=== PATIENT | male | born 1950 | race Caucasian/White ===

== ENCOUNTER → 2016-08-05 | Outpatient (CLI) | payer BC ==
[~2016-08-05] MED LIST: ASP81TEC PO
--- NOTE | 2016-08-05 21:29 | ECHOCARDIOGRAPHY REPORT ---
DATE OF SERVICE: 08/05/2016 PROCEDURE: 2D Echocardiogram REFERRING PHYSICIAN: Mark Baldwin MD. MEASUREMENTS: LVID end diastolic 4.4. IVS thickness 1.0. LVPW thickness 1.0. Left atrial diameter 2.0. Ejection fraction 60%. FINDINGS: 1. Technical quality is good. 2. The left ventricle is normal in size with normal contractility, systolic function appeared to be normal, estimated ejection fraction 60%. 3. The left atrium is normal in size. No clot or thrombus were seen within the left atrium. 4. The right atrium and right ventricle are normal in size. No clot or thrombus were seen within the right side. 5. Mitral valve is normal in morphology with mild mitral regurgitation noted by color Doppler flow. No mitral valve prolapse. No mitral valve stenosis. 6. Aortic valve is trileaflet with normal opening and closing pattern. No significant aortic stenosis or regurgitation was seen. 7. Tricuspid valve is normal in morphology with mild tricuspid regurgitation noted by color Doppler flow. Doppler echo of the tricuspid valve estimated pulmonary artery pressure of 7 plus right atrial pressure. 8. Pulmonic valve is functioning normally. 9. No pericardial effusion. CONCLUSION: 1. Normal left ventricular size and systolic function. Estimated ejection fraction 60%. 2. Mild mitral and tricuspid regurgitation. 3. Estimated pulmonary artery pressure of 15 mmHg. Job ID: [id number] DocumentID: [id number] Dictated Date: 08/05/2016 17:29:17 Credit Risk Management Director Date: 08/05/2016 17:47:56 Dictated By: SANDRA CLAIRE MD
== END ==
LOC: CARD 11:45
PROVIDERS: ATTEND Physician Assistant
DX: I65.23 Occlusion and stenosis of bilateral carotid arteries (principal); E78.2 Mixed hyperlipidemia; R00.2 Palpitations; Z82.49 Family history of ischemic heart disease and other diseases of the circulatory system
CPT/HCPCS: 93306

== ENCOUNTER → 2016-08-12 | Outpatient (CLI) | payer BC ==
[~2016-08-12] VITALS: Ht 180.3 cm; Wt 82.6 kg
[~2016-08-12] MED LIST changes: +CATHETER FLUSH 10 ML SYR IV PRN
[2016-08-12 09:43] VITALS: BP 121/72
[2016-08-12 09:46] VITALS: BP 138/70
[2016-08-12 09:54] VITALS: BP 140/72
[2016-08-12 09:56] VITALS: BP 137/64
[2016-08-12 09:58] VITALS: BP 132/61
--- NOTE | 2016-08-12 12:17 | STRESS TEST ---
DATE OF SERVICE: 08/12/2016 EXERCISE MYOVIEW STRESS TEST REFERRING PHYSICIAN: Dr. Mark Baldwin. DATE OF PROCEDURE: 08/12/2016 Baseline heart rate is 71. Baseline blood pressure 115/62. Baseline EKG sinus rhythm with no ischemic changes. In summary, the patient was injected with 10.92 mCi of technetium-99 Myoview and the resting images were obtained. Then, the patient started exercising with a baseline heart rate, blood pressure and EKG mentioned above. At minute 7 and 30 seconds, the patient was injected with 32.3 mCi of technetium 99 Myoview, patient was able to exercise for a total of 8 minutes 30 seconds on standard Ted protocol, achieving maximum heart rate of 138, which is 89% of maximum expected heart rate. With peak exercise level, EKG was showing minimal undiagnostic changes. Blood pressure was 138/70. During recovery, heart rate and blood pressure returned to baseline. EKG returned to baseline. The resting and stress images were reviewed and compared in the short axis, horizontal long axis, and vertical long axis views. Review of the images showed diaphragmatic attenuation with typical male pattern. There is no significant ischemia or infarction on SPECT images. SSS is 4. SDS zero. TID value 0.96. On the gated images, the left ventricle appeared to be normal size with normal contractility. Calculated ejection fraction 65%. CONCLUSION: 1. Good exercise tolerance, a total of 8 minutes 30 seconds on standard Ted protocol, total of 10.1 mets achieving 89% of maximum expected heart rate. 2. Appropriate heart rate and blood pressure response to exercise, returned to baseline during recovery. 3. Minimal and diagnostic EKG changes with exercise returned to baseline during recovery. 4. No ischemia or infarction on SPECT images. 5. Normal left ventricular size with normal contractility. Calculated ejection fraction 65%. Job ID: [id number] DocumentID: [id number] Dictated Date: 08/12/2016 11:08:13 Chlorination Operator Date: 08/12/2016 12:00:45 Dictated By: SANDRA CLAIRE MD
== END ==
LOC: CARD 08:20
PROVIDERS: ATTEND Physician Assistant
DX: I65.23 Occlusion and stenosis of bilateral carotid arteries (principal); E78.2 Mixed hyperlipidemia; R00.2 Palpitations; Z82.49 Family history of ischemic heart disease and other diseases of the circulatory system
CPT/HCPCS: 78452; 93017

== ENCOUNTER → 2018-01-28 | Outpatient (CLI) | payer BC ==
[2018-01-28 09:21] VITALS: BP 113/74
--- NOTE | 2018-01-28 14:13 | STRESS TEST ---
DATE OF SERVICE: 01/28/2018 EXERCISE MYOVIEW STRESS TEST REPORT REFERRING PHYSICIAN: Dr. Chamberlain. Baseline heart rate is 67. Baseline blood pressure is 113/74. Baseline EKG is sinus rhythm with no ischemic changes. In summary, the patient was injected with 10.5 mCi of technetium-99 Myoview and the resting images were obtained. Then, the patient started exercising with a baseline heart rate, blood pressure and EKG mentioned above. The patient was able to exercise for a total of 9 minutes on standard Ted protocol. At peak stress level, the patient was given 31.3 mCi of technetium-99 Myoview. Peak blood pressure reported was 191/78. During recovery, heart rate and blood pressure returned to baseline. EKG returned to baseline. The resting and stress images were reviewed and compared in the short axis, horizontal long axis and vertical long axis views. Review of the images showed diaphragmatic attenuation affecting the quality of the images. There is a fixed defect involving the mid to apical inferior wall and inferolateral wall. SSS is 8. SDS is 0. Using the attenuation correction protocol, showed improvement overall in the uptake with mild apical thinning with no significant ischemia. On the gated images, the left ventricle appeared to be in normal size with normal contractility, inferior wall is ashanti normally. Calculated ejection fraction is 60% . CONCLUSION: 1. Good exercise tolerance, a total of 9 minutes on standard Ted protocol, total of 10.5 METS achieving 88% of maximum expected heart rate. 2. Appropriate heart rate and blood pressure response to exercise, returned to baseline during recovery. 3. Nondiagnostic EKG changes with exercise, returned to baseline during recovery. 4. Diaphragmatic attenuation with typical male pattern affecting the quality of the images. Overall, there is no significant ischemia or infarction on SPECT images. 5. Normal left ventricular size with normal contractility. Calculated ejection fraction is 60% . Job ID: [id number] DocumentID: [id number] Dictated Date: 01/28/2018 13:54:05 Non Profit Director Date: 01/28/2018 14:13:38 Dictated By: SANDRA CLAIRE MD
== END ==
LOC: CARD 08:11
PROVIDERS: ATTEND Internal Medicine Cardiovascular Disease
DX: R07.89 Other chest pain (principal); E78.5 Hyperlipidemia, unspecified; R00.2 Palpitations; Z82.49 Family history of ischemic heart disease and other diseases of the circulatory system
CPT/HCPCS: 78452; 93017

== ENCOUNTER 2018-03-10 11:08 | Outpatient (CLI) | payer BC ==
[~2018-03-10] VITALS: Ht 180.3 cm; Wt 83.1 kg
[~2018-03-10 11:08] MED LIST changes: -CATHETER FLUSH 10 ML SYR IV PRN
[2018-03-10] MEDS ORDERED: ASPI-999 PO (11:27)
[2018-03-10 11:31] VITALS: BP 130/83
[2018-03-10 12:01] LABS: BASOPHILS % (AUTO) 0 % (0-10); EOSINOPHILS # (AUTO) 0.1 10^3/uL (0.0-0.3); EOSINOPHILS % (AUTO) 2 % (0-10); HEMATOCRIT 42 % (40-54); HEMOGLOBIN 14.3 G/DL (13.3-17.7); LYMPHOCYTES # (AUTO) 1.2 X 10^3 (1.0-4.0); LYMPHOCYTES % (AUTO) 19 % (12-44); MEAN CORPUSCULAR HEMOGLOBIN 30 PG (25-34); MEAN CORPUSCULAR HGB CONC 34 G/DL (32-36); MEAN CORPUSCULAR VOLUME 89 FL (80-99); MONOCYTES # (AUTO) 0.5 X 10^3 (0.0-1.0); MONOCYTES % (AUTO) 8 % (0-12); NEUTROPHILS # (AUTO) 4.3 X 10^3 (1.8-7.8); NEUTROPHILS % (AUTO) 71 % (42-75); PLATELET COUNT 229 10^3/uL (130-400); RED BLOOD COUNT 4.77 10^6/uL (4.35-5.85); RED CELL DISTRIBUTION WIDTH 13.1 % (10.0-14.5); WHITE BLOOD COUNT 6.1 10^3/uL (4.3-11.0)
== END 2018-03-10 13:01 | disposition home or self-care (01) ==
LOC: PREOP 11:08
PROVIDERS: ATTEND Surgery
DX: Z01.812 Encounter for preprocedural laboratory examination (principal); Z11.2 Encounter for screening for other bacterial diseases; K40.90 Unilateral inguinal hernia, without obstruction or gangrene, not specified as recurrent
CPT/HCPCS: 36415; 85025; 87081

== ENCOUNTER 2018-03-13 08:20 | Day surgery (SDC) | payer BC ==
[~2018-03-13] VITALS: Ht 180.3 cm; Wt 83.1 kg
[~2018-03-13 08:20] MED LIST changes: +ASPI-999 PO
--- OUTSIDE RECORDS SUMMARY | 2018-03-13 08:23 | XMS REPORT | Continuity of Care Document ---
Author Author [facility] Organization [facility] Address Unknown Phone Unavailable Allergies Active Description Code Type Severity Reaction Onset Reported/Identified Relationship to Patient Clinical Status Yes No Known Drug Allergies [id number] Drug Allergy Unknown N/A 11/26/2011 Yes Ymnwlox-Zca-Oil Reductase Inhibitor [id number] Drug Allergy Severe CAUSES PROBLEMS 06/28/2015 Medications There is no data. Problems Date Dx Coded Attending Type Code Diagnosis Diagnosed By 11/26/2011 Ot 530.81 ESOPHAGEAL REFLUX 11/26/2011 Ot 535.40 OTH SPECIFIED GASTRITIS,W/O MENTION OF H 03/28/2014 Ot 535.60 03/28/2014 Ot 536.8 03/28/2014 Ot 786.50 03/28/2014 Ot 536.8 03/28/2014 Ot 786.50 03/28/2014 Ot V72.84 06/28/2015 MICAELA GAXIOLA MD Ot Z01.818 ENCOUNTER FOR OTHER PREPROCEDURAL EXAMIN 06/30/2015 MICAELA GAXIOLA MD Ot K64.1 SECOND DEGREE HEMORRHOIDS 06/30/2015 MICAELA GAXIOLA MD Ot Z12.11 ENCOUNTER FOR SCREENING FOR MALIGNANT NE 07/03/2015 MICAELA GAXIOLA MD Ot K64.1 07/03/2015 MICAELA GAXIOLA MD Ot Z12.11 07/03/2015 MICAELA GAXIOLA MD Ot K64.1 07/03/2015 MICAELA GAXIOLA MD Ot Z12.11 03/27/2016 Ot 535.60 DUODENITIS, WITHOUT MENTION OF HEMORRHAG 03/27/2016 Ot 536.8 STOMACH FUNCTION DIS NEC 03/27/2016 Ot 786.50 CHEST PAIN NOS 03/27/2016 Ot 536.8 STOMACH FUNCTION DIS NEC 03/27/2016 Ot 786.50 CHEST PAIN NOS 03/27/2016 Ot V72.84 EXAM PRE- OPERATIVE NOS 08/06/2016 CHRISTINA RENE Ot E78.2 MIXED HYPERLIPIDEMIA 08/06/2016 MENDOZA-FANG PA, CHRISTINA K Ot I65.23 OCCLUSION AND STENOSIS OF BILATERAL [place] 08/06/2016 MENDOZA-FANG PA, CHRISTINA Li Ot R00.2 PALPITATIONS 08/06/2016 MENDOZA-FANG PA, CHRISTINA K Ot Z82.49 FAMILY HX OF ISCHEM HEART DIS AND OTH DI 08/22/2016 MENDOZA-FANG PA, CHRISTINA K Ot E78.2 MIXED HYPERLIPIDEMIA 08/22/2016 MENDOZA-FANG PA, CHRISTINA K Ot I65.23 OCCLUSION AND STENOSIS OF BILATERAL [place] 08/22/2016 MENDOZA-FANG PA, CHRISTINA K Ot R00.2 PALPITATIONS 08/22/2016 MENDOZA-FANG PA, CHRISTINA K Ot Z82.49 FAMILY HX OF ISCHEM HEART DIS AND OTH DI 09/04/2016 MENDOZA-FANG PA, CHRISTINA K Ot E78.2 MIXED HYPERLIPIDEMIA 09/04/2016 MENDOZA-FANG PA, CHRISTINA K Ot I65.23 OCCLUSION AND STENOSIS OF BILATERAL [place] 09/04/2016 MENDOZA-FANG PA, CHRISTINA Li Ot R00.2 PALPITATIONS 09/04/2016 MENDOZA-FANG PA, CHRITSINA K Ot Z82.49 FAMILY HX OF ISCHEM HEART DIS AND OTH DI 06/05/2017 MENDOZA-FANG PA, CHRISTINA K Ot E78.2 MIXED HYPERLIPIDEMIA 06/05/2017 MENDOZA-FANG PA, CHRISTINA K Ot I65.23 OCCLUSION AND STENOSIS OF BILATERAL [place] 06/05/2017 MENDOZA-FANG PA, CHRISTINA K Ot R00.2 PALPITATIONS 06/05/2017 MENDOZA-FANG PA, CHRISTINA K Ot Z82.49 FAMILY HX OF ISCHEM HEART DIS AND OTH DI 06/05/2017 MENDOZA-FANG PA, CHRISTINA K Ot E78.2 MIXED HYPERLIPIDEMIA 06/05/2017 MENDOZA-FANG PA, CHRISTINA K Ot I65.23 OCCLUSION AND STENOSIS OF BILATERAL [place] 06/05/2017 MENDOZA-FANG PA, CHRISTINA K Ot R00.2 PALPITATIONS 06/05/2017 MENDOZA-FANG PA, CHRISTINA K Ot Z82.49 FAMILY HX OF ISCHEM HEART DIS AND OTH DI 10/22/2017 MENDOZA-FANG PA, CHRISTINA K Ot E78.2 MIXED HYPERLIPIDEMIA 10/22/2017 REJI-FANG PA, CHRISTINA Li Ot I65.23 OCCLUSION AND STENOSIS OF BILATERAL [place] 10/22/2017 REJI-FANG PA, CHRISTINA Li Ot R00.2 PALPITATIONS 10/22/2017 REJI-FANG PA, CHRISTINA Li Ot Z82.49 FAMILY HX OF ISCHEM HEART DIS AND OTH DI 10/22/2017 REJI-FANG PA, CHRISTINA Li Ot E78.2 MIXED HYPERLIPIDEMIA 10/22/2017 MENDOZA-FANG PA, CHRISTINA Li Ot I65.23 OCCLUSION AND STENOSIS OF BILATERAL [place] 10/22/2017 REJI-FANG PA, CHRISTINA Jen Ot R00.2 PALPITATIONS 10/22/2017 REJI-FANG PA, CHRISTINA Li Ot Z82.49 FAMILY HX OF ISCHEM HEART DIS AND OTH DI 01/15/2018 REJI-FANG PA, CHRISTINA Li Ot E78.2 MIXED HYPERLIPIDEMIA 01/15/2018 REJI-FANG PA, CHRISTINA Li Ot I65.23 OCCLUSION AND STENOSIS OF BILATERAL [place] 01/15/2018 MENDOZA-FANG PA, CHRISTINA Li Ot R00.2 PALPITATIONS 01/15/2018 REJI-FANG PA, CHRISTINA Jen Ot Z82.49 FAMILY HX OF ISCHEM HEART DIS AND OTH DI 01/15/2018 REJI-FANG PA, CHRISTINA K Ot E78.2 MIXED HYPERLIPIDEMIA 01/15/2018 MENDOZA-FANG PA, CHRISTINA Li Ot I65.23 OCCLUSION AND STENOSIS OF BILATERAL [place] 01/15/2018 REJI-FANG PA, CHRISTINA Li Ot R00.2 PALPITATIONS 01/15/2018 MENDOZA-FANG PA, CHRISTINA Jen Ot Z82.49 FAMILY HX OF ISCHEM HEART DIS AND OTH DI 01/30/2018 DAKOTAH ALFREDO, SANDRA Jaeger Ot E78.5 HYPERLIPIDEMIA, UNSPECIFIED 01/30/2018 DAKOTAH ALFREDO, SANDRA Jaeger Ot R00.2 PALPITATIONS 01/30/2018 DAKOTAH ALFREDO, SANDRA Jaeger Ot R07.89 OTHER CHEST PAIN 01/30/2018 DAKOTAH ALFREDO, SANDRA Jaeger Ot Z82.49 FAMILY HX OF ISCHEM HEART DIS AND OTH DI 02/09/2018 SANDRA CLAIRE MD Ot E78.5 HYPERLIPIDEMIA, UNSPECIFIED 02/09/2018 SANDRA CLAIRE MD Ot R00.2 PALPITATIONS 02/09/2018 SANDRA CLAIRE MD, Ot R07.89 OTHER CHEST PAIN 02/09/2018 SANDRA CLAIRE MD, Ot Z82.49 FAMILY HX OF ISCHEM HEART DIS AND OTH DI 03/11/2018 MICAELA GAXIOLA MD, Ot K40.90 UNIL INGUINAL HERNIA, W/O OBST OR GANGR, 03/11/2018 MICAELA GAXIOLA MD, Ot Z01.812 ENCOUNTER FOR PREPROCEDURAL LABORATORY E 03/11/2018 MICAELA GAXIOLA MD, Ot Z11.2 ENCOUNTER FOR SCREENING FOR OTHER BACTER Procedures There is no data. Results Test Result Range Methicillin resistant Staphylococcus aureus (MRSA) screening culture - 11:30 Methicillin resistant Staphylococcus aureus (MRSA) screening culture NEG NRG Complete blood count (CBC) with automated white blood cell (WBC) differential - 03/10/18 11:35 Blood leukocytes automated count (number/volume) 6.1 10*3/uL 4.3-11.0 Blood erythrocytes automated count (number/volume) 4.77 10*6/uL 4.35-5.85 Venous blood hemoglobin measurement (mass/volume) 14.3 g/dL 13.3-17.7 Blood hematocrit (volume fraction) 42 % 40-54 Automated erythrocyte mean corpuscular volume 89 [foz_us] 80-99 Automated erythrocyte mean corpuscular hemoglobin (mass per erythrocyte) 30 pg 25-34 Automated erythrocyte mean corpuscular hemoglobin concentration measurement ( mass/volume) 34 g/dL 32-36 Automated erythrocyte distribution width ratio 13.1 % 10.0-14.5 Automated blood platelet count (count/volume) 229 10*3/uL 130-400 Automated blood platelet mean volume measurement 10.0 [foz_us] 7.4-10.4 Automated blood neutrophils/100 leukocytes 71 % 42-75 Automated blood lymphocytes/100 leukocytes 19 % 12-44 Blood monocytes/100 leukocytes 8 % 0-12 Automated blood eosinophils/100 leukocytes 2 % 0-10 Automated blood basophils/100 leukocytes 0 % 0-10 Blood neutrophils automated count (number/volume) 4.3 10*3 1.8-7.8 Blood lymphocytes automated count (number/volume) 1.2 10*3 1.0-4.0 Blood monocytes automated count (number/volume) 0.5 10*3 0.0-1.0 Automated eosinophil count 0.1 10*3/uL 0.0-0.3 Automated blood basophil count (count/volume) 0.0 10*3/uL 0.0-0.1 Encounters ACCT No. Visit Date/Time Discharge Status Pt. Type Provider Facility Loc./Unit Complaint [id number] 03/10/2018 11:08:00 03/10/2018 13:01:00 DIS Outpatient MICAELA GAXIOLA MD [facility] PREOP LEFT INGUINAL HERNIA [id number] 01/28/2018 08:11:00 01/28/2018 23:59:59 CLS Outpatient SANDRA CLAIRE MD [facility] CARD CAROTID ARTERY STENOSIS [id number] 08/12/2016 08:20:00 08/12/2016 23:59:59 CLS Outpatient CHRISTINA RENE [facility] CARD I65.23, Z82.49,E78.2 [id number] 08/05/2016 11:45:00 08/05/2016 23:59:59 CLS Outpatient CHRISTINA RENE [facility] CARD I65.23, Z84.49,E78.2 [id number] 06/30/2015 11:16:00 06/30/2015 13:46:00 DIS Outpatient MICAELA GAXIOLA MD [facility] SCREENING [id number] 06/28/2015 05:46:00 06/28/2015 10:13:00 DIS Outpatient MICAELA GAXIOLA MD [facility] PREOP SCREENING [id number] 03/13/2018 10:30:00 PEN Preadmit MICAELA GAXIOLA MD [facility] LEFT INGUINAL HERNIA [id number] 11/26/2011 06:28:00 Document Registration [id number] 11/25/2011 07:09:00 Document Registration [id number] 10/03/2011 08:11:00 Document Registration [id number] 10/01/2011 15:59:00 Document Registration
[2018-03-13 08:35] VITALS: BP 125/83
[2018-03-13] MEDS ORDERED: ceFAZolin 2 GM IV Premixed 50 ML IV ONE (08:45)
--- NOTE | 2018-03-13 09:49 | Progress Note-Pre Operative ---
Pre-Operative Progress Note H&P Reviewed The H&P was reviewed, patient examined and no changes noted. Date Seen by Provider: Mar 13, 2018 Time Seen by Provider: 09:40 Date H&P Reviewed: Mar 13, 2018 Time H&P Reviewed: 09:45 Pre-Operative Diagnosis: Symptomatic Left inguinal hernia KENIA MADDEN APRN Mar 13, 2018 09:49
[2018-03-13] MEDS ORDERED: HYDR-3816 PO (09:51)
--- NOTE | 2018-03-13 09:52 | Discharge Inst-Surgical ---
D/C Lap Instructions-KIDO New, Converted, or Re-Newed RX: RX on Chart Follow Up Appt in 2 weeks Activity as tolerated No driving for 24 hours No driving while on pain medications Incentive Spirometry use every 2 hours while awake Regular Diet Symptoms to Report: Fever over 101 degree F, Nausea/Vomiting Infection Signs and Symptoms to report: Increased redness, Foul odor of wound, Increased drainage Bathing instructions: May shower Operative Area Clean/Dry; Keep incision clean/dry If any problems/questions: Contact your physician or go to Emergency Room KENIA MADDEN APRN Mar 13, 2018 09:52
[2018-03-13] MEDS ORDERED: ONDANSETRON 4 MG/2 ML (SDV) Z0FRAN IVP PRN ×2 (10:00→11:45)
[2018-03-13] MEDS ORDERED: HYDROcodone/APAP 5 MG/325 MG (LORTAB) TAB PO ONE (10:00)
[2018-03-13] MEDS ORDERED: morphine INJ 10 MG/ML 1ML (SYR OR VIAL) IVP PRN (10:00)
[2018-03-13] MEDS ORDERED: ACETAMINOPHEN 325 MG TABLET PO PRN (10:00)
[2018-03-13] MEDS ORDERED: BUP/EPI 0.5% 1:200,000 (SENSORCAINE) 30 ML VIAL ONE (10:01)
[2018-03-13] MEDS ORDERED: ROCURONIUM 10 MG/ML 5 ML SYRINGE IV ONE (10:04)
[2018-03-13] MEDS ORDERED: ONDANSETRON 4 MG/2 ML (SDV) Z0FRAN ONE (10:04)
[2018-03-13] MEDS ORDERED: fentaNYL INJECTION 100 MCG/2 ML AMP ONE (10:04)
[2018-03-13] MEDS ORDERED: LIDOCAINE PF 2% 5 ML (XYLOCAINE) VIAL ONE (10:04)
[2018-03-13] MEDS ORDERED: DEXAMETHASONE 10 MG/ML (DECADRON) 1 ML VIAL ONE (10:04)
[2018-03-13] MEDS ORDERED: proPOfol 200 MG/20 ML (DIPRIVAN) VIAL IV ONE (10:04)
[2018-03-13] MEDS ORDERED: MIDAZOLAM 2 MG/2 ML (VERSED) VIAL ONE (10:04)
[2018-03-13] MEDS: LACTATED RINGERS 1,000 ML IV PRN ×2 (10:07→11:20)
[2018-03-13] MEDS ORDERED: SEVOFLURANE (ULTANE) 15 ML INHAL SOLN ONE ×2 (10:44→11:21)
[2018-03-13] MEDS ORDERED: PHENYLEPHRINE 100 MCG/ML 10 ML (ANESTHESIA) SYR ONE (11:00)
[2018-03-13] MEDS ORDERED: GLYCOPYRROLATE 0.2 MG/ML (ROBINUL) 2 ML VIAL ONE (11:20)
[2018-03-13] MEDS ORDERED: NEOSTIGMINE 1 MG/ML 5 ML SYRINGE ONE (11:20)
[2018-03-13] MEDS ORDERED: KETOROLAC 30 MG/ML VIAL ONE (11:21)
--- NOTE | 2018-03-13 11:27 | Progress Note-Post Operative ---
Post-Operative Progess Note Surgeon (s)/Manager Style (s) Surgeon MICAELA GAXIOLA MD Manager Style: zaira jaeger HAND BLOCKER Pre-Operative Diagnosis Symptomatic Left inguinal hernia Post-Operative Diagnosis symptomatic reducible left direct inguinal hernia Procedure & Operative Findings Date of Procedure 03/13/18 Procedure Performed/Findings laparoscopic left inguinal hernia repair with mesh. Anesthesia Type GET Estimated Blood Loss Estimated blood loss (mL): minimal Specimens/Packing Specimens Removed none MICAELA GAXIOLA MD Mar 13, 2018 11:27
[2018-03-13] MEDS ORDERED: HYDROmorphone 2 MG/ML VIAL (DILAUDID) IV ONE (11:45)
[2018-03-13 12:30] VITALS: BP 120/69
[2018-03-13 12:35] VITALS: BP 120/69
[2018-03-13 13:00] VITALS: BP 126/69
--- NOTE | 2018-03-13 13:11 | Anesthesia-General Post-Op ---
General Patient Condition Mental Status/LOC: Same as Preop Cardiovascular: Satisfactory Nausea/Vomiting: Absent Respiratory: Satisfactory Pain: Controlled Complications: Absent Post Op Complications Complications None Follow Up Care/Instructions Patient Instructions None needed. Anesthesia/Patient Condition Patient Condition Patient is doing well, no complaints, stable vital signs, no apparent adverse anesthesia problems. No complications reported per nursing. DELROY BOLAND CRNA Mar 13, 2018 13:11
[2018-03-13 13:30] VITALS: BP 121/66
[2018-03-13] MEDS ORDERED: HYDROcodone/APAP 5 MG/325 MG (LORTAB) TAB ONE (13:57)
--- NOTE | 2018-03-13 16:25 | OPERATIVE REPORT ---
DATE OF SERVICE: 03/13/2018 ATTENDING PRIMARY CARE PHYSICIAN: Dr. Baldwin. PREOPERATIVE DIAGNOSIS: Symptomatic reducible left inguinal hernia. POSTOPERATIVE DIAGNOSIS: Symptomatic left reducible direct inguinal hernia. PROCEDURE: Laparoscopic left inguinal hernia repair with mesh. SURGEON: Micaela Gaxiola MD ANESTHESIA: General endotracheal. SHOT POLISHER AND INSPECTOR: Arjun Hoang APRN ESTIMATED BLOOD LOSS: Minimal. FINDINGS: Direct left inguinal hernia with nothing within the hernia sac. No right inguinal hernia component. DISPOSITION: The patient tolerated the procedure well. INDICATIONS: The patient is a 68-year-old male with a symptomatic left inguinal hernia that was seen in the office. He was clearing brush, which is a normal process for him and he did well that day; however, several days later, did note a significant sized bulge in the left inguinal region that was tender to palpation. He was seen by his physician where symptomatic reducible left inguinal hernia was identified, which was verified upon examination in the office. He is otherwise doing well and tolerating a regular diet and having normal bowel movements. There was no right inguinal hernia component identified. DESCRIPTION OF PROCEDURE: The patient was brought to the operating room, laid supine on the table. After adequate IV pain and sedative medications and general endotracheal intubation, the abdomen was prepped and draped in standard surgical fashion. A 0.5% Marcaine with epinephrine was then used to anesthetize the overlying skin in the infraumbilical rim and a crescent shaped skin incision was made using a 15 blade. The abdominal wall was then retracted anteriorly using a sharp towel clamp and a Veress needle was inserted with a low opening pressure of 0 mmHg. The abdomen was then insufflated to 15 mmHg pressure. The Veress needle was removed and a 5 mm Xcel trocar was placed followed by a 5 mm 45 degree angle laparoscope visualizing the peritoneal cavity. A 4-quadrant abdominal exploration was performed. A left direct inguinal hernia was identified with nothing within the hernia sac. There was no right inguinal hernia component identified. The remainder of the colon, small bowel, omentum and liver appeared normal. We then proceeded to place bilateral 5 mm ports under direct visualization after the skin and peritoneal lining were anesthetized using 0.5% Marcaine with epinephrine and a transverse skin incision was made using a 15 blade. The patient was then placed in Trendelenburg position. The peritoneal lining was then opened starting laterally towards the conjoint tendon and inguinal ligament. We then proceeded medially until we reached the López's ligament. We then proceeded with inferior dissection encompassing the entire hernia sac. The cord and its contents were identified and spared throughout the process. Good hemostasis was observed and the polypropylene mesh was then placed through the 10 mm port and tacked to López's ligament medially and to López's ligament laterally. The peritoneal lining was then placed completely over the mesh and a few tacks were placed to hold it into place with absorbable tacks. Good hemostasis was observed. The 10 mm port site fascia and peritoneum were then closed under direct visualization using a Delvis-Loida device and 0 Vicryl suture. The abdomen was desufflated and remaining ports removed. All skin incisions were closed using 4-0 Monocryl running subcuticular sutures. Wounds were then cleaned and covered with Dermabond. The patient tolerated the procedure well. We will start IV normal pain medication as well as a clear liquid diet. Once he is tolerating clears, has good pain control with oral pain medications, ambulating well, we will discharge him home. He will be instructed to do no heavy lifting or exertion, especially for the first 2 weeks and then slowly incorporate some increased activity; however, he needs six weeks for total incorporation of the mesh and consent for doing the other repair. Job ID: [id number] DocumentID: [id number] Dictated Date: 03/13/2018 11:36:08 Glue Cook Date: 03/13/2018 16:24:56 Dictated By: MICAELA GAXIOLA MD
== END 2018-03-13 14:40 | disposition home or self-care (01) ==
LOC: SDC 08:20
PROVIDERS: ATTEND Surgery
DX: K40.90 Unilateral inguinal hernia, without obstruction or gangrene, not specified as recurrent (principal); E78.5 Hyperlipidemia, unspecified; Z79.82 Long term (current) use of aspirin
CPT/HCPCS: 94664

== ENCOUNTER → 2019-05-25 | Outpatient (CLI) | payer BC, MEDICARE ==
[~2019-05-25] MED LIST changes: +HYDR-3816 PO
--- NOTE | 2019-05-25 16:16 | Diagnostic Imaging Report ---
INDICATION: Epigastric pain. FINDINGS: Bowel gas pattern is nonspecific. There is moderate amount retained fecal material which may reflect some degree of constipation. There are no abnormal calcifications. IMPRESSION: Nonspecific bowel gas pattern. There may be some degree of constipation. Dictated by: Dictated on workstation # [id number]
== END ==
LOC: RAD 15:05
PROVIDERS: ATTEND Family Medicine
DX: R10.13 Epigastric pain (principal)
CPT/HCPCS: 74018

== ENCOUNTER → 2019-05-28 | Outpatient (CLI) | payer MEDICARE ==
--- NOTE | 2019-05-28 13:16 | Diagnostic Imaging Report ---
EXAMINATION: CT abdomen and pelvis without contrast. TECHNIQUE: Multiple contiguous axial images were obtained through the abdomen and pelvis without the use of intravenous contrast. All CT scans use one or more of the following dose optimizing techniques: Automated exposure control, MA and/or KvP adjustment based on a patient size and exam type, or iterative reconstruction. HISTORY: Epigastric pain. COMPARISON: None available. FINDINGS: Limited views of the lower thorax show a small left pleural effusion. The liver is normal without focal lesion. There is no biliary ductal dilation. Gallbladder is normal. Pancreas is normal. Spleen is markedly enlarged with a craniocaudal length of 19 cm. There is stranding about the spleen with internal heterogeneous low attenuation concerning for potentially the presence of an intrasplenic hematoma. There is also marked lymphadenopathy in the upper abdomen with a large lucero hepatis lymph node measuring 6.2 cm. Gastrohepatic lymph node measures 5.3 cm. Retroperitoneal lymph nodes measure 2.5 cm. Mesenteric lymph nodes are also enlarged measuring up to 16 mm in short axis. Adrenal glands are normal. The kidneys are normal. There is no hydronephrosis. Urinary bladder is normal. Prostate is enlarged. There is a left inguinal hernia which contains a portion of the urinary bladder. Visualized bowel is normal in caliber without obstruction or inflammation. Small amount of free fluid is seen in the pelvis. No abdominal or pelvic lymphadenopathy. Aorta is normal in caliber without aneurysm. There are no suspicious osseous lesions. IMPRESSION: 1. Marked splenomegaly and extensive lymphadenopathy in the lucero hepatis, retroperitoneum, and mesentery. 2. There is heterogeneous attenuation of the spleen with perisplenic stranding concerning for a component of splenic hemorrhage. No large intraperitoneal hemorrhage is seen. 3. Small left pleural effusion. Paged doctor loss prevention agent at 1:16 p.m. 05/28/2019/cb Dictated by: Dictated on workstation # [id number]
== END ==
LOC: RAD 11:44
PROVIDERS: ATTEND Family Medicine
DX: J90 Pleural effusion, not elsewhere classified (principal); R10.13 Epigastric pain; R16.1 Splenomegaly, not elsewhere classified; R59.0 Localized enlarged lymph nodes; R10.12 Left upper quadrant pain
CPT/HCPCS: 74176

== ENCOUNTER → 2019-06-14 | Outpatient (CLI) | payer MEDICARE ==
[~2019-06-14] MED LIST changes: +HOLD METFORMIN - RECEIVED CONTRAST 20 ML VIAL IV SCH; +HYDR-34 PO; -HYDR-3816 PO; +IOHEXOL 350 MG/ML 100 ML (OMNIPAQUE 350) VIAL IV ONE; +NS 100 ML (IVPB) BAG IV ONE; +OMEG-160 PO
--- NOTE | 2019-06-14 09:10 | Diagnostic Imaging Report ---
PROCEDURE: CT chest with contrast, CT abdomen and pelvis with and without contrast. TECHNIQUE: Pre and post intravenous contrast axial imaging of the abdomen and pelvis and post contrast axial imaging of the chest were performed. Auto Exposure Controls were utilized during the CT exam to meet ALARA standards for radiation dose reduction. INDICATION: Enlarged spleen. Correlation is made with the recent CT abdomen and pelvis study from 05/28/2019. CT CHEST: No definite axillary lymphadenopathy is detected. No definite mediastinal or hilar lymphadenopathy is seen. There is trace pericardial fluid. Small to moderate left pleural effusion is noted. There is some compressive atelectasis left lower lobe. Otherwise the lungs appear to be clear. No parenchymal mass is identified. Bony structures appear nonacute. IMPRESSION: Ftopu-kl-ordlzrxt left pleural effusion with associated left basilar compressive atelectasis. No thoracic lymphadenopathy or pulmonary mass is detected. CT abdomen and pelvis: No discrete liver mass is identified. Gallbladder is unremarkable. No biliary ductal dilatation is seen. There are multiple enlarged masses involving the upper abdomen. A mass in the spleen measures 6.1 cm in size. A large heterogeneous mixed increased and decreased density mass occupies the left abdomen just below the level of the spleen. This mass measures approximately 19 cm AP by 14 cm transverse by approximately 19 cm cephalocaudal. There is also multiple masses in the hepatogastric region as well as in the portacaval location. A portacaval mass producing mass effect on the pancreatic head measures approximately 6 cm. Hepatogastric mass producing mass effect on the stomach measures approximately 8.3 cm. There are numerous additional smaller lesions below this level in the hepatogastric location. There is a central retroperitoneal left periaortic masses. Adrenal glands appear to be unremarkable. No definite renal mass is seen. Aorta is normal caliber. Bowel loops are normal in caliber. There is some free fluid in the pelvis but no significant free fluid in the abdomen is identified. There appears to be a left inguinal hernia. No definite inguinal or iliac lymphadenopathy is seen. There does appear to be some nodular thickening to the omentum in the anterior abdomen suggestive of omental caking. IMPRESSION: Multiple mixed density masses in the upper abdomen, as described. Findings are consistent with a neoplastic or lymphomatous process. Tissue sampling of the dominant mass in the left abdomen below the level of the spleen could likely be performed percutaneously. Dictated by: Dictated on workstation # [id number]
== END ==
LOC: RAD 07:24
PROVIDERS: ATTEND Surgery
DX: J90 Pleural effusion, not elsewhere classified (principal); J98.11 Atelectasis; R19.02 Left upper quadrant abdominal swelling, mass and lump; R16.1 Splenomegaly, not elsewhere classified
CPT/HCPCS: 71260; 74178

== ENCOUNTER 2019-06-18 07:07 | Outpatient (CLI) | payer MEDICARE ==
[2019-06-18] VITALS (10 sets, daily range): BP systolic 110–144; BP diastolic 60–80
[~2019-06-18] VITALS: Ht 180.3 cm; Wt 73.6 kg
[~2019-06-18 07:07] MED LIST changes: -HOLD METFORMIN - RECEIVED CONTRAST 20 ML VIAL IV SCH; -IOHEXOL 350 MG/ML 100 ML (OMNIPAQUE 350) VIAL IV ONE; -NS 100 ML (IVPB) BAG IV ONE; -OMEG-160 PO
[2019-06-18 07:43] LABS: HEMOGLOBIN 10.5 G/DL (13.3-17.7); MEAN PLATELET VOLUME 9.4 FL (7.4-10.4); RED CELL DISTRIBUTION WIDTH 15.4 % (10.0-14.5); WHITE BLOOD COUNT 6.6 10^3/uL (4.3-11.0)
[2019-06-18 07:51] LABS: INR 1.1 (0.8-1.4); PROTHROMBIN TIME PATIENT 14.4 SEC (12.2-14.7)
[2019-06-18] MEDS ORDERED: NS IV 1000 ML 1,000 ML IV STA (08:05)
[2019-06-18] MEDS ORDERED: fentaNYL INJECTION 100 MCG/2 ML AMP IVP ONE (08:15)
[2019-06-18] MEDS ORDERED: MIDAZOLAM 2 MG/2 ML (VERSED) VIAL IVP ONE (08:15)
[2019-06-18] MEDS ORDERED: LIDOCAINE 1% INJ 20 ML 20 ML VIAL INJ ONE (08:15)
[2019-06-18] MEDS ORDERED: OMEG-160 PO (08:41)
[2019-06-18] MEDS ORDERED: HYDROcodone/APAP 5 MG/325 MG (LORTAB) TAB PO PRN (09:30)
--- NOTE | 2019-06-18 09:44 | Diagnostic Imaging Report ---
INDICATION: Abdominal mass. Patient presents for CT-guided biopsy. TECHNIQUE: All CT scans use one or more of the following dose optimizing techniques: automated exposure control, MA and/or KvP adjustment based on a patient size and exam type, or iterative reconstruction. DETAILS OF PROCEDURE: Patient was brought to the CT suite and placed on the table in the supine position. Axial imaging through the abdomen was performed to evaluate appropriate entry site. A study was performed utilizing conscious sedation with radiology nursing and constant patient monitoring. Patient was administered a total of 50 mcg of fentanyl intravenously and 1 mg of Versed intravenously. Total procedure time was 7 minutes. Left upper abdomen was prepped and draped in usual sterile fashion. Small amount of 1% lidocaine was utilized for local anesthesia. 18-gauge coaxial Temno needle was advanced into the large left abdominal mass. Multiple core biopsies were obtained. The needle was then repositioned and additional core biopsies were obtained. The needle was withdrawn and hemostasis was obtained using manual compression. Patient tolerated the procedure well and left the department in stable condition. IMPRESSION: Successful CT-guided core biopsy of the large mass in the left abdomen utilizing conscious sedation. Pathology results are currently pending. Dictated by: Dictated on workstation # [id number]
--- NOTE | 2019-06-18 10:10 | Pre-Op Note & Conscious Sedat ---
Pre-Operative Progress Note H&P Reviewed The H&P was reviewed, patient examined and no changes noted. Date H&P Reviewed: Jun 18, 2019 Time H&P Reviewed: 08:00 Pre-Op Diagnosis: abdominal mass Conscious Sedation Pre-Proced Time 08:00 ASA Score 2 For ASA 3 and 4: Consider anesthesia and medical clearance. Also, for patients with a history of failed moderate sedation consider anesthesia. Airway Lungs Heart ASA score ASA 1: a normal healthy patient ASA 2: a patient with a mild systemic disease (mid diabetes, controlled hypertension, obesity ASA 3: a patient with a severe systemic disease that limits activity (angina, COPD, prior Myocardial infarction) ASA 4: a patient with an incapacitating disease that is a constant threat to life (CHF, renal failure) ASA 5: a moribund patient not expected to survive 24 hrs. (ruptured aneurysm) ASA 6: a declared brain- patient whose organs are being harvested. For emergent operations, add the letter E after the classification Mallampati Classification Grade 2 Sedation Plan Analgesia, Amnesia, Plan communicated to team members, Discussed options with patient/fam, Discussed risks with patient/fam The patient is an appropriate candidate to undergo the planned procedure, sedation, and anesthesia. The patient immediately re-assessed prior to indication. GEOFF BATISTA MD Jun 18, 2019 10:10
== END 2019-06-18 11:50 | disposition home or self-care (01) ==
LOC: SDC 07:07
PROVIDERS: ATTEND Surgery
DX: R19.02 Left upper quadrant abdominal swelling, mass and lump (principal); R10.12 Left upper quadrant pain; R63.4 Abnormal weight loss
CPT/HCPCS: 36415; 77012; 85027; 85610; 85730; 99156

== ENCOUNTER 2019-06-24 08:23 | Day surgery (SDC) | payer MEDICARE ==
[~2019-06-24] VITALS: Ht 180.3 cm; Wt 79.0 kg
[~2019-06-24 08:23] MED LIST changes: +OMEG-160 PO
[2019-06-24 08:50] VITALS: BP 135/80
[2019-06-24] MEDS ORDERED: ACET-2267 PO (09:07)
[2019-06-24] MEDS ORDERED: WATER (STERILE) FOR INJECTION 10 ML ONE (09:14)
[2019-06-24] MEDS ORDERED: ceFAZolin INJECTION 1,000 MG ONE (09:14)
[2019-06-24] MEDS ORDERED: fentaNYL INJECTION 100 MCG/2 ML AMP ONE (09:15)
[2019-06-24] MEDS ORDERED: MIDAZOLAM 2 MG/2 ML (VERSED) VIAL ONE (09:16)
[2019-06-24] MEDS ORDERED: LACTATED RINGERS 1,000 ML IV PRN (09:17)
[2019-06-24] MEDS ORDERED: HEParin (CENTRAL IV FLUSH) 500 UNIT/5 ML SYR ONE (09:32)
[2019-06-24] MEDS ORDERED: 0.9% SODIUM CHLORIDE PF INJ 20 ML VIAL ONE (09:32)
[2019-06-24] MEDS ORDERED: BUP/EPI 0.5% 1:200,000 (SENSORCAINE) 30 ML VIAL ONE (09:32)
--- NOTE | 2019-06-24 09:35 | Progress Note-Pre Operative ---
Pre-Operative Progress Note H&P Reviewed The H&P was reviewed, patient examined and no changes noted. Date Seen by Provider: Jun 24, 2019 Time Seen by Provider: 09:35 Date H&P Reviewed: Jun 24, 2019 Time H&P Reviewed: 09:35 Pre-Operative Diagnosis: malignancy likely lymphoma KULDIP MCDUFFIE DO Jun 24, 2019 09:35
[2019-06-24] MEDS ORDERED: ceFAZolin INJECTION 1,000 MG in WATER (STERILE) FOR INJECTION 10 ML IV ONE (10:00)
[2019-06-24] MEDS ORDERED: CATHETER FLUSH 10 ML SYR IV PRN (10:00)
[2019-06-24] MEDS ORDERED: ONDANSETRON 4 MG/2 ML (SDV) Z0FRAN ONE (11:08)
[2019-06-24] MEDS ORDERED: PROPOFOL INJECTION 50 ML IV ONE (11:08)
[2019-06-24 11:26] VITALS: BP 118/75
[2019-06-24 11:30] VITALS: BP 118/71
[2019-06-24] MEDS ORDERED: ONDANSETRON 4 MG/2 ML (SDV) Z0FRAN IVP PRN (11:30)
--- NOTE | 2019-06-24 11:35 | Anesthesia-General Post-Op ---
MAC Patient Condition Mental Status/LOC: Same as Preop Cardiovascular: Satisfactory Nausea/Vomiting: Absent Respiratory: Satisfactory Pain: Controlled Complications: Absent Post Op Complications Complications None Follow Up Care/Instructions Patient Instructions None needed. Anesthesiology Discharge Order Discharge Order Patient is doing well, no complaints, stable vital signs, no apparent adverse anesthesia problems. No complications reported per nursing. NICOLAS BUCKNER CRNA Jun 24, 2019 11:35
[2019-06-24 11:40] VITALS: BP 119/76
--- NOTE | 2019-06-24 11:41 | Progress Note-Post Operative ---
Post-Operative Progess Note Surgeon (s)/Account Manager Education (s) Surgeon KLUDIP MCDUFFIE DO Account Manager Education: na Pre-Operative Diagnosis malignancy likely lymphoma Post-Operative Diagnosis same Procedure & Operative Findings Date of Procedure 06/24/19 Procedure Performed/Findings PROCEDURE: Right internal jugular port placement using ultrasound guidance. COMPLICATIONS: None. INDICATIONS: The patient is a 69 year old male with malignancy likely lymphoma. Patient understands the risks and benefits of port placement and wished to proceed with the procedure. Consent was signed on the chart. PROCEDURE: The patient was taken to the operating suite, was prepped and draped in the sterile fashion. A surgical pause was performed. Ultrasound was used to locate the internal jugular vein. Once located anesthetic was infiltrated above it. Using micro-access kit, the right internal vein was accessed. Dark nonpulsatile blood was withdrawn. The wire was inserted. Fluoroscopy assured proper placement. The needle was removed. The micro-access dilator was advanced over the wire and the wire was removed. The regular wire was inserted and fluoroscopy assured proper placement. The wire was then secured. Local anesthetic was used to anesthetize from the neck for tunneling down to the right chest and for pocket creation. A 11 blade scalpel was used to make an incision over the right chest. Cautery was used to dissect down to the pectoral fascia. A pocket was created with blunt dissection. The dilator sheath was then advanced over the wire under fluoroscopy and the dilator and wire were removed. The Groshong catheter was inserted through the sheath and the sheath was then removed. The Groshong wire was removed. The catheter was then tunneled to the right chest pocket. Fluoroscopy was used to cut to length and this was then attached to the port which was then placed within the pocket. The port was then accessed without difficulty. It was then flushed with saline and then heparin. The subcutaneous tissues were then reapproximated using 3-0 Vicryl. The areas were then washed and dried. Skin Affix was placed over incision. The insertion point of the neck Skin Affix was placed over the incision. The patient tolerated the procedure well without complication and was taken to recovery room in stable condition. Chest x-ray is pending. Anesthesia Type mac c local Estimated Blood Loss Estimated blood loss (mL): min Specimens/Packing Specimens Removed KULDIP Ferguson DO Jun 24, 2019 11:41
--- NOTE | 2019-06-24 11:44 | Discharge Inst-Simple/Standard ---
Discharge Inst-Standard Patient Instructions/Follow Up Plan of Care/Instructions/FU: 2 weeks Medardo Activity as Tolerated: No Discharge Diet: Regular Diet Other Inst to Patient Follow up Appt: Make appointment for 2 week. Instructions: No lifting greater than 10 pounds. No strenuous activity. May shower in 24 hours, no tub bath or soaking. Use incentive spirometer at home as directed. No Smoking Skin/Wound Care: You have special glue over your incision that will fall off on it's own. Place ice pack on for 15 min and off for 30 min and repeat for pain and to decrease swelling. Symptoms to Report: Appetite Changes, Extremity Discoloration, Numbness/Tingling, Swelling Increased, Bleeding Excessive, Eyesight Changes, Pain Increased, Urine Color Change, Constipation(Persistent), Fever over 101 degree F, Pain/Pressure in [address], Urinating Difficulty, Cough Up/Vomit Blood, Heart Beat Irreg/Pounding, Pain/Pressure in jaw, Vaginal Bleeding Increase, Cramps in feet or legs, Lightheadedness, Pain/Pressure in shoulder, Diarrhea(Persistent), Memory Changes Suddenly, Questions/Concerns, Weight gain consecutive days, Dizziness/Fainting, Nausea/Vomiting, Shortness of Breath, Weight gain over 2 pounds If questions or concerns contact your physician Or seek help at emergency department. KULDIP MCDUFFIE DO Jun 24, 2019 11:44
[2019-06-24 11:55] VITALS: BP_SYST 122; BP_SYST 127; BP_DIAS 76
--- NOTE | 2019-06-24 12:02 | Diagnostic Imaging Report ---
INDICATION: Port placement. Time of exam 11:50 AM No prior studies are available for comparison. A right chest wall Port-A-Cath has tip overlying the SVC. There is some pleural fluid and atelectasis in the left base obscuring the left hemidiaphragm. Right lung is clear. No pneumothorax is identified. IMPRESSION: 1. Right chest wall port placement. No pneumothorax is seen. 2. Left basilar pleural fluid and atelectasis. Dictated by: Dictated on workstation # [id number]
[2019-06-24 12:25] VITALS: BP 126/74
--- NOTE | 2019-06-24 13:05 | Diagnostic Imaging Report ---
INDICATION: Fluoroscopy for Groshong catheter placement. Fluoroscopy was provided in OR during Groshong catheter placement. 23 seconds of fluoroscopic time was utilized. 2 images were obtained demonstrating a right sided Groshong catheter with tip overlying the SVC. IMPRESSION: Fluoroscopy during Groshong catheter placement. Dictated by: Dictated on workstation # [id number]
== END 2019-06-24 12:45 | disposition home or self-care (01) ==
LOC: SDC 08:23
PROVIDERS: ATTEND Surgery
DX: C80.1 Malignant (primary) neoplasm, unspecified (principal); E78.2 Mixed hyperlipidemia; I65.23 Occlusion and stenosis of bilateral carotid arteries; R19.02 Left upper quadrant abdominal swelling, mass and lump; R10.12 Left upper quadrant pain; Z82.49 Family history of ischemic heart disease and other diseases of the circulatory system; Z79.82 Long term (current) use of aspirin; Z79.899 Other long term (current) drug therapy; Z85.828 Personal history of other malignant neoplasm of skin
CPT/HCPCS: 71045; 87081

== ENCOUNTER → 2019-06-25 | Outpatient (CLI) | payer MEDICARE ==
[~2019-06-25] MED LIST changes: +ACET-2267 PO; +CATHETER FLUSH 10 ML SYR IV PRN; +HEParin (CENTRAL IV FLUSH) 500 UNIT/5 ML SYR ONE
--- NOTE | 2019-06-25 15:53 | Diagnostic Imaging Report ---
INDICATION: Carcinoma. TECHNIQUE: Patient was administered 31.6 mCi technetium 99m pertechnetate labeled to the patient's red blood cells and gated cardiac imaging was performed. FINDINGS: Left ventricular ejection fraction is calculated to be 55%. IMPRESSION: Left ventricular ejection fraction 55%. Dictated by: Dictated on workstation # [id number]
== END ==
LOC: CARD 12:41
PROVIDERS: ATTEND Internal Medicine Hematology & Oncology
DX: Z01.810 Encounter for preprocedural cardiovascular examination (principal); C80.1 Malignant (primary) neoplasm, unspecified; D64.9 Anemia, unspecified
CPT/HCPCS: 78472

== ENCOUNTER → 2019-06-29 | Outpatient (CLI) | payer MEDICARE ==
[~2019-06-29] MED LIST changes: -CATHETER FLUSH 10 ML SYR IV PRN; -HEParin (CENTRAL IV FLUSH) 500 UNIT/5 ML SYR ONE
--- NOTE | 2019-06-29 15:32 | Diagnostic Imaging Report ---
INDICATION: Non-Hodgkin's lymphoma, initial staging. TECHNIQUE: Serum blood glucose level at the time of injection is 94 mg/dL. Patient was administered 12.6 mCi F-18 FDG intravenously in left antecubital location and PET imaging was performed from the top of the skull to mid thighs. Noncontrast CT was also performed for attenuation correction and anatomic correlation. COMPARISON: No prior PET studies are available for comparison. Comparison is made with conventional CT chest, abdomen, and pelvis from 06/14/2019. FINDINGS: There is symmetric activity throughout the brain. Soft tissues of the neck appear unremarkable. The patient does have bwreublj-jq-nqzcu left and vciav-id-bxfmtgks right pleural effusion with associated bibasilar consolidation. There are hypermetabolic lymph nodes in the internal mammary locations bilaterally with SUV max of approximately 4-5. Hypermetabolic nava mass in the lower anterior mediastinum just anterior to the heart is noted with SUV max approximately 7.2. There is marked abnormal hypermetabolism throughout the abdomen. Previously noted large masses in the upper and left abdomen are hypermetabolic. These are located in the hepatogastric, portacaval, lucero hepatis and central retroperitoneal regions. A large mass in the left abdomen inferior to the spleen is hypermetabolic. This does show some central photopenia consistent with some necrosis. SUV max of these regions are 8-9.5. Abnormal hypermetabolism throughout the anterior abdomen is seen and extending into the anterior pelvis. Patient does have moderate ascites. IMPRESSION: 1. Marked abnormal hypermetabolism, as described within the lower anterior chest along the internal mammary chain as well as lower anterior mediastinum. There is marked hypermetabolic nava masses throughout the abdomen, as described and consistent with patient's diagnosis of lymphoma. Moderate sized ascites is present. Patient has bilateral pleural effusions with associated bibasilar infiltrates or atelectasis, left greater. Dictated by: Dictated on workstation # [id number]
== END ==
LOC: RAD 12:06
PROVIDERS: ATTEND Internal Medicine Hematology & Oncology
DX: C85.90 Non-Hodgkin lymphoma, unspecified, unspecified site (principal); D63.0 Anemia in neoplastic disease; R18.8 Other ascites; J90 Pleural effusion, not elsewhere classified

== ENCOUNTER → 2019-08-24 | Outpatient (CLI) | payer MEDICARE ==
--- NOTE | 2019-08-24 13:35 | Diagnostic Imaging Report ---
INDICATION: Large B-cell lymphoma with subsequent restaging. TECHNIQUE: Serum blood glucose level at the time of injection is 101 mg/dL. Patient was administered 14.0 mCi F-18 FDG intravenously in the left antecubital location and PET imaging was performed from the top of the skull to mid thighs. Noncontrast CT was also performed for attenuation correction and anatomic correlation. COMPARISON: Comparison is made with prior PET/CT study from 06/29/2019. FINDINGS: Symmetric activity throughout the brain is noted. Soft tissues of the neck are unremarkable. There continues to be a large left pleural effusion with some consolidation in the left lower lobe. No right-sided pleural fluid is seen on today's study. Previously noted right internal mammary chain hypermetabolism has resolved. There continues to be some hypermetabolism in the anterior mediastinum inferiorly just anterior to the heart, however the overall degree of hypermetabolism has decreased somewhat. There continues to be significant amount of hypermetabolism involving masses in the left abdomen. There is hypermetabolism in the hepatogastric as well as lucero hepatis, portacaval, and central retroperitoneal regions. However, degree of hypermetabolism has significantly improved when compared with prior PET/CT study. Much less hypermetabolism is now seen in the anterior abdomen inferiorly. There does continue to be some hypermetabolism in left iliac node. There is small hypermetabolic node in the right obturator region as well. The degree of ascites noted on prior study has significantly improved. IMPRESSION: 1. Large left pleural effusion. Previously noted right pleural effusion has resolved. 2. Overall, fairly significant improvement when compared with prior PET/CT study from 06/29/2019. There continues to be hypermetabolism in the lower anterior mediastinum, left abdomen, as well as hepatogastric, portacaval, and central retroperitoneal regions however this is significantly improved since prior. Small hypermetabolic lymph nodes in the pelvis are noted. There has been near-complete resolution of previously noted ascites since prior exam. Dictated by: Dictated on workstation # [id number]
== END ==
LOC: RAD 10:20
PROVIDERS: ATTEND Internal Medicine Hematology & Oncology
DX: Z01.89 Encounter for other specified special examinations (principal); C83.38 Diffuse large B-cell lymphoma, lymph nodes of multiple sites; J90 Pleural effusion, not elsewhere classified

== ENCOUNTER 2019-09-15 09:53 | Outpatient (RCR) | payer MEDICARE ==
[2019-06-22 14:46] LABS: ABSOLUTE RETIC # 58 10e9/L (24-90); BASOPHILS % (AUTO) 0 % (0-10); EOSINOPHILS # (AUTO) 0.1 10^3/uL (0.0-0.3); EOSINOPHILS % (AUTO) 1 % (0-10); HEMATOCRIT 33 % (40-54); HEMOGLOBIN 10.3 G/DL (13.3-17.7); LYMPHOCYTES # (AUTO) 0.8 X 10^3 (1.0-4.0); LYMPHOCYTES % (AUTO) 10 % (12-44); MEAN CORPUSCULAR HEMOGLOBIN 25 PG (25-34); MEAN CORPUSCULAR HGB CONC 31 G/DL (32-36); MEAN CORPUSCULAR VOLUME 80 FL (80-99); MEAN PLATELET VOLUME 9.4 FL (7.4-10.4); MONOCYTES # (AUTO) 0.9 X 10^3 (0.0-1.0); MONOCYTES % (AUTO) 11 % (0-12); NEUTROPHILS # (AUTO) 6.4 X 10^3 (1.8-7.8); NEUTROPHILS % (AUTO) 78 % (42-75); PLATELET COUNT 517 10^3/uL (130-400); RED CELL DISTRIBUTION WIDTH 15.4 % (10.0-14.5); RETICULOCYTE % 1.39 % (0.50-2.40); WHITE BLOOD COUNT 8.2 10^3/uL (4.3-11.0)
[2019-06-22 15:09] LABS: ALANINE AMINOTRANSFERASE 75 U/L (0-55); ALBUMIN 3.7 GM/DL (3.2-4.5); ALKALINE PHOSPHATASE 150 U/L (40-136); BILIRUBIN,TOTAL 0.3 MG/DL (0.1-1.0); BUN/CREATININE RATIO 20; CALCIUM 9.3 MG/DL (8.5-10.1); CARBON DIOXIDE 25 MMOL/L (21-32); CHLORIDE 98 MMOL/L (98-107); CREATININE SERUM 0.81 MG/DL (0.60-1.30); GFR ESTIMATED > 60; GLUCOSE 108 MG/DL (70-105); POTASSIUM 4.3 MMOL/L (3.6-5.0); SODIUM 135 MMOL/L (135-145); TOTAL PROTEIN 6.5 GM/DL (6.4-8.2)
[2019-06-22 15:31] LABS: ANISOCYTOSIS SLIGHT; EOSINOPHILS % (MANUAL) 1 %; LYMPHOCYTES % (MANUAL) 6 %; MONOCYTES % (MANUAL) 4 %; NEUTROPHILS % (MANUAL) 89 %; POLYCHROMASIA SLIGHT
[2019-06-28 14:57] LABS: BASOPHILS % (AUTO) 0 % (0-10); EOSINOPHILS # (AUTO) 0.2 10^3/uL (0.0-0.3); EOSINOPHILS % (AUTO) 2 % (0-10); HEMATOCRIT 32 % (40-54); HEMOGLOBIN 9.8 G/DL (13.3-17.7); LYMPHOCYTES # (AUTO) 0.8 X 10^3 (1.0-4.0); LYMPHOCYTES % (AUTO) 9 % (12-44); MEAN CORPUSCULAR HEMOGLOBIN 25 PG (25-34); MEAN CORPUSCULAR HGB CONC 31 G/DL (32-36); MEAN CORPUSCULAR VOLUME 80 FL (80-99); MEAN PLATELET VOLUME 9.2 FL (7.4-10.4); MONOCYTES % (AUTO) 11 % (0-12); NEUTROPHILS # (AUTO) 6.9 X 10^3 (1.8-7.8); NEUTROPHILS % (AUTO) 78 % (42-75); PLATELET COUNT 541 10^3/uL (130-400); RED CELL DISTRIBUTION WIDTH 15.5 % (10.0-14.5); WHITE BLOOD COUNT 8.9 10^3/uL (4.3-11.0)
[2019-06-28 15:28] LABS: ALANINE AMINOTRANSFERASE 48 U/L (0-55); ALBUMIN 3.6 GM/DL (3.2-4.5); ALKALINE PHOSPHATASE 180 U/L (40-136); BILIRUBIN,TOTAL 0.3 MG/DL (0.1-1.0); BUN/CREATININE RATIO 18; CALCIUM 9.6 MG/DL (8.5-10.1); CARBON DIOXIDE 26 MMOL/L (21-32); CHLORIDE 97 MMOL/L (98-107); CREATININE SERUM 0.82 MG/DL (0.60-1.30); GFR ESTIMATED > 60; GLUCOSE 99 MG/DL (70-105); POTASSIUM 4.7 MMOL/L (3.6-5.0); SODIUM 136 MMOL/L (135-145); TOTAL PROTEIN 6.7 GM/DL (6.4-8.2); URIC ACID 3.7 MG/DL (2.6-7.2)
[2019-06-28 21:47] LABS: HEPATITIS C ANTIBODY C Non-Reactive (Non-Reactive)
[2019-07-01 13:59] LABS: ALANINE AMINOTRANSFERASE 39 U/L (0-55); ALBUMIN 3.5 GM/DL (3.2-4.5); ALKALINE PHOSPHATASE 150 U/L (40-136); BILIRUBIN,TOTAL 0.3 MG/DL (0.1-1.0); BUN/CREATININE RATIO 25; CARBON DIOXIDE 24 MMOL/L (21-32); CHLORIDE 95 MMOL/L (98-107); CREATININE SERUM 0.72 MG/DL (0.60-1.30); GFR ESTIMATED > 60; GLUCOSE 153 MG/DL (70-105); POTASSIUM 4.3 MMOL/L (3.6-5.0); SODIUM 130 MMOL/L (135-145); TOTAL PROTEIN 6.3 GM/DL (6.4-8.2); URIC ACID 4.9 MG/DL (2.6-7.2)
[2019-07-05 10:54] LABS: BASOPHILS # (AUTO) 0.1 10^3/uL (0.0-0.1); BASOPHILS % (AUTO) 0 % (0-10); EOSINOPHILS # (AUTO) 0.1 10^3/uL (0.0-0.3); EOSINOPHILS % (AUTO) 1 % (0-10); HEMATOCRIT 32 % (40-54); LYMPHOCYTES # (AUTO) 0.4 X 10^3 (1.0-4.0); LYMPHOCYTES % (AUTO) 1 % (12-44); MEAN CORPUSCULAR HEMOGLOBIN 25 PG (25-34); MEAN CORPUSCULAR HGB CONC 31 G/DL (32-36); MEAN CORPUSCULAR VOLUME 79 FL (80-99); MEAN PLATELET VOLUME 9.4 FL (7.4-10.4); MONOCYTES # (AUTO) 0.1 X 10^3 (0.0-1.0); MONOCYTES % (AUTO) 0 % (0-12); NEUTROPHILS # (AUTO) 28.2 X 10^3 (1.8-7.8); NEUTROPHILS % (AUTO) 97 % (42-75); PLATELET COUNT 521 10^3/uL (130-400)
[2019-07-05 11:21] LABS: ALANINE AMINOTRANSFERASE 35 U/L (0-55); ALBUMIN 3.7 GM/DL (3.2-4.5); ALKALINE PHOSPHATASE 147 U/L (40-136); BILIRUBIN,TOTAL 0.4 MG/DL (0.1-1.0); BUN/CREATININE RATIO 28; CALCIUM 9.1 MG/DL (8.5-10.1); CARBON DIOXIDE 28 MMOL/L (21-32); CHLORIDE 101 MMOL/L (98-107); CREATININE SERUM 0.71 MG/DL (0.60-1.30); GFR ESTIMATED > 60; GLUCOSE 112 MG/DL (70-105); POTASSIUM 4.4 MMOL/L (3.6-5.0); SODIUM 137 MMOL/L (135-145); TOTAL PROTEIN 6.2 GM/DL (6.4-8.2); URIC ACID 3.5 MG/DL (2.6-7.2)
[2019-07-14 10:06] LABS: BASOPHILS # (AUTO) 0.1 10^3/uL (0.0-0.1); BASOPHILS % (AUTO) 0 % (0-10); EOSINOPHILS # (AUTO) 0.1 10^3/uL (0.0-0.3); EOSINOPHILS % (AUTO) 1 % (0-10); HEMATOCRIT 34 % (40-54); HEMOGLOBIN 10.6 G/DL (13.3-17.7); LYMPHOCYTES # (AUTO) 0.9 X 10^3 (1.0-4.0); LYMPHOCYTES % (AUTO) 5 % (12-44); MEAN CORPUSCULAR HEMOGLOBIN 25 PG (25-34); MEAN CORPUSCULAR HGB CONC 31 G/DL (32-36); MEAN CORPUSCULAR VOLUME 80 FL (80-99); MEAN PLATELET VOLUME 10.3 FL (7.4-10.4); MONOCYTES % (AUTO) 5 % (0-12); NEUTROPHILS % (AUTO) 89 % (42-75); PLATELET COUNT 148 10^3/uL (130-400); RED CELL DISTRIBUTION WIDTH 18.7 % (10.0-14.5)
[2019-07-14 10:09] LABS: SMEAR SCAN COMMENT YES
[2019-07-14 10:16] LABS: ALBUMIN 4.1 GM/DL (3.2-4.5)
[2019-07-14 10:17] LABS: CHLORIDE 101 MMOL/L (98-107); POTASSIUM 4.6 MMOL/L (3.6-5.0); SODIUM 138 MMOL/L (135-145)
[2019-07-14 10:18] LABS: CALCIUM 9.4 MG/DL (8.5-10.1)
[2019-07-14 10:19] LABS: GLUCOSE 110 MG/DL (70-105); TOTAL PROTEIN 6.9 GM/DL (6.4-8.2)
[2019-07-14 10:20] LABS: CARBON DIOXIDE 26 MMOL/L (21-32)
[2019-07-14 10:21] LABS: BILIRUBIN,TOTAL 0.3 MG/DL (0.1-1.0)
[2019-07-14 10:22] LABS: ALKALINE PHOSPHATASE 153 U/L (40-136)
[2019-07-14 10:23] LABS: CREATININE SERUM 0.93 MG/DL (0.60-1.30); GFR ESTIMATED > 60
[2019-07-14 10:24] LABS: BUN/CREATININE RATIO 20
[2019-07-14 10:26] LABS: ALANINE AMINOTRANSFERASE 22 U/L (0-55)
[2019-07-21 10:50] LABS: BASOPHILS # (AUTO) 0.1 10^3/uL (0.0-0.1); BASOPHILS % (AUTO) 1 % (0-10); EOSINOPHILS # (AUTO) 0.2 10^3/uL (0.0-0.3); EOSINOPHILS % (AUTO) 2 % (0-10); HEMATOCRIT 32 % (40-54); LYMPHOCYTES # (AUTO) 0.8 X 10^3 (1.0-4.0); LYMPHOCYTES % (AUTO) 7 % (12-44); MEAN CORPUSCULAR HEMOGLOBIN 25 PG (25-34); MEAN CORPUSCULAR HGB CONC 31 G/DL (32-36); MEAN CORPUSCULAR VOLUME 81 FL (80-99); MEAN PLATELET VOLUME 9.6 FL (7.4-10.4); MONOCYTES # (AUTO) 0.9 X 10^3 (0.0-1.0); MONOCYTES % (AUTO) 8 % (0-12); NEUTROPHILS # (AUTO) 9.2 X 10^3 (1.8-7.8); NEUTROPHILS % (AUTO) 82 % (42-75); PLATELET COUNT 437 10^3/uL (130-400); RED CELL DISTRIBUTION WIDTH 19.4 % (10.0-14.5); WHITE BLOOD COUNT 11.1 10^3/uL (4.3-11.0)
[2019-07-21 11:22] LABS: ALANINE AMINOTRANSFERASE 19 U/L (0-55); ALBUMIN 3.8 GM/DL (3.2-4.5); ALKALINE PHOSPHATASE 109 U/L (40-136); BILIRUBIN,TOTAL 0.3 MG/DL (0.1-1.0); BUN/CREATININE RATIO 18; CALCIUM 9.1 MG/DL (8.5-10.1); CARBON DIOXIDE 27 MMOL/L (21-32); CHLORIDE 103 MMOL/L (98-107); CREATININE SERUM 0.87 MG/DL (0.60-1.30); GFR ESTIMATED > 60; GLUCOSE 105 MG/DL (70-105); POTASSIUM 4.3 MMOL/L (3.6-5.0); SODIUM 139 MMOL/L (135-145); TOTAL PROTEIN 6.7 GM/DL (6.4-8.2); URIC ACID 3.4 MG/DL (2.6-7.2)
[2019-07-28 09:53] LABS: BASOPHILS # (AUTO) 0.1 10^3/uL (0.0-0.1); BASOPHILS % (AUTO) 1 % (0-10); EOSINOPHILS # (AUTO) 0.3 10^3/uL (0.0-0.3); EOSINOPHILS % (AUTO) 3 % (0-10); HEMATOCRIT 31 % (40-54); HEMOGLOBIN 9.7 G/DL (13.3-17.7); LYMPHOCYTES # (AUTO) 0.9 X 10^3 (1.0-4.0); LYMPHOCYTES % (AUTO) 10 % (12-44); MEAN CORPUSCULAR HEMOGLOBIN 26 PG (25-34); MEAN CORPUSCULAR HGB CONC 31 G/DL (32-36); MEAN CORPUSCULAR VOLUME 82 FL (80-99); MEAN PLATELET VOLUME 9.9 FL (7.4-10.4); MONOCYTES # (AUTO) 0.9 X 10^3 (0.0-1.0); MONOCYTES % (AUTO) 10 % (0-12); NEUTROPHILS % (AUTO) 77 % (42-75); PLATELET COUNT 485 10^3/uL (130-400); WHITE BLOOD COUNT 9.1 10^3/uL (4.3-11.0)
[2019-07-28 10:19] LABS: ALANINE AMINOTRANSFERASE 16 U/L (0-55); ALBUMIN 3.7 GM/DL (3.2-4.5); ALKALINE PHOSPHATASE 88 U/L (40-136); BILIRUBIN,TOTAL 0.4 MG/DL (0.1-1.0); BUN/CREATININE RATIO 24; CALCIUM 8.9 MG/DL (8.5-10.1); CARBON DIOXIDE 25 MMOL/L (21-32); CHLORIDE 106 MMOL/L (98-107); CREATININE SERUM 0.76 MG/DL (0.60-1.30); GFR ESTIMATED > 60; GLUCOSE 113 MG/DL (70-105); MAGNESIUM 2.4 MG/DL (1.6-2.4); POTASSIUM 4.2 MMOL/L (3.6-5.0); SODIUM 140 MMOL/L (135-145); TOTAL PROTEIN 6.4 GM/DL (6.4-8.2); URIC ACID 4.3 MG/DL (2.6-7.2)
[2019-08-04 09:58] LABS: BASOPHILS % (AUTO) 0 % (0-10); EOSINOPHILS # (AUTO) 0.1 10^3/uL (0.0-0.3); EOSINOPHILS % (AUTO) 1 % (0-10); HEMATOCRIT 32 % (40-54); HEMOGLOBIN 10.1 G/DL (13.3-17.7); LYMPHOCYTES # (AUTO) 0.6 X 10^3 (1.0-4.0); LYMPHOCYTES % (AUTO) 6 % (12-44); MEAN CORPUSCULAR HEMOGLOBIN 25 PG (25-34); MEAN CORPUSCULAR HGB CONC 32 G/DL (32-36); MEAN CORPUSCULAR VOLUME 80 FL (80-99); MEAN PLATELET VOLUME 9.6 FL (7.4-10.4); MONOCYTES # (AUTO) 0.6 X 10^3 (0.0-1.0); MONOCYTES % (AUTO) 6 % (0-12); NEUTROPHILS # (AUTO) 9.3 X 10^3 (1.8-7.8); NEUTROPHILS % (AUTO) 87 % (42-75); PLATELET COUNT 366 10^3/uL (130-400); RED CELL DISTRIBUTION WIDTH 20.6 % (10.0-14.5); WHITE BLOOD COUNT 10.6 10^3/uL (4.3-11.0)
[2019-08-04 10:17] LABS: ALANINE AMINOTRANSFERASE 22 U/L (0-55); ALBUMIN 3.9 GM/DL (3.2-4.5); ALKALINE PHOSPHATASE 131 U/L (40-136); BILIRUBIN,TOTAL 0.4 MG/DL (0.1-1.0); BUN/CREATININE RATIO 19; CALCIUM 8.9 MG/DL (8.5-10.1); CARBON DIOXIDE 25 MMOL/L (21-32); CHLORIDE 104 MMOL/L (98-107); CREATININE SERUM 0.79 MG/DL (0.60-1.30); GFR ESTIMATED > 60; GLUCOSE 117 MG/DL (70-105); POTASSIUM 4.3 MMOL/L (3.6-5.0); SODIUM 138 MMOL/L (135-145); TOTAL PROTEIN 6.4 GM/DL (6.4-8.2); URIC ACID 5.5 MG/DL (2.6-7.2)
[2019-08-11 10:27] LABS: BASOPHILS # (AUTO) 0.1 10^3/uL (0.0-0.1); BASOPHILS % (AUTO) 0 % (0-10); EOSINOPHILS # (AUTO) 0.1 10^3/uL (0.0-0.3); EOSINOPHILS % (AUTO) 1 % (0-10); HEMATOCRIT 34 % (40-54); HEMOGLOBIN 10.5 G/DL (13.3-17.7); LYMPHOCYTES # (AUTO) 0.9 X 10^3 (1.0-4.0); LYMPHOCYTES % (AUTO) 5 % (12-44); MEAN CORPUSCULAR HEMOGLOBIN 26 PG (25-34); MEAN CORPUSCULAR HGB CONC 31 G/DL (32-36); MEAN CORPUSCULAR VOLUME 82 FL (80-99); MEAN PLATELET VOLUME 9.6 FL (7.4-10.4); MONOCYTES # (AUTO) 0.9 X 10^3 (0.0-1.0); MONOCYTES % (AUTO) 5 % (0-12); NEUTROPHILS # (AUTO) 16.6 X 10^3 (1.8-7.8); NEUTROPHILS % (AUTO) 89 % (42-75); PLATELET COUNT 136 10^3/uL (130-400); RED CELL DISTRIBUTION WIDTH 23.4 % (10.0-14.5); WHITE BLOOD COUNT 18.6 10^3/uL (4.3-11.0)
[2019-08-11 10:45] LABS: ALANINE AMINOTRANSFERASE 22 U/L (0-55); ALBUMIN 3.9 GM/DL (3.2-4.5); ALKALINE PHOSPHATASE 123 U/L (40-136); BILIRUBIN,TOTAL 0.3 MG/DL (0.1-1.0); BUN/CREATININE RATIO 18; CARBON DIOXIDE 25 MMOL/L (21-32); CHLORIDE 103 MMOL/L (98-107); CREATININE SERUM 0.82 MG/DL (0.60-1.30); GFR ESTIMATED > 60; GLUCOSE 111 MG/DL (70-105); POTASSIUM 4.1 MMOL/L (3.6-5.0); SODIUM 138 MMOL/L (135-145); TOTAL PROTEIN 6.4 GM/DL (6.4-8.2); URIC ACID 5.9 MG/DL (2.6-7.2)
[2019-08-18 09:52] LABS: BASOPHILS # (AUTO) 0.1 10^3/uL (0.0-0.1); BASOPHILS % (AUTO) 1 % (0-10); EOSINOPHILS # (AUTO) 0.1 10^3/uL (0.0-0.3); EOSINOPHILS % (AUTO) 1 % (0-10); HEMATOCRIT 33 % (40-54); HEMOGLOBIN 10.3 G/DL (13.3-17.7); LYMPHOCYTES # (AUTO) 0.6 X 10^3 (1.0-4.0); LYMPHOCYTES % (AUTO) 7 % (12-44); MEAN CORPUSCULAR HEMOGLOBIN 26 PG (25-34); MEAN CORPUSCULAR HGB CONC 31 G/DL (32-36); MEAN CORPUSCULAR VOLUME 84 FL (80-99); MEAN PLATELET VOLUME 10.1 FL (7.4-10.4); MONOCYTES % (AUTO) 10 % (0-12); NEUTROPHILS # (AUTO) 7.9 X 10^3 (1.8-7.8); NEUTROPHILS % (AUTO) 82 % (42-75); PLATELET COUNT 320 10^3/uL (130-400); RED CELL DISTRIBUTION WIDTH 24.3 % (10.0-14.5); WHITE BLOOD COUNT 9.7 10^3/uL (4.3-11.0)
[2019-08-18 10:10] LABS: ALANINE AMINOTRANSFERASE 18 U/L (0-55); ALBUMIN 3.8 GM/DL (3.2-4.5); ALKALINE PHOSPHATASE 83 U/L (40-136); BILIRUBIN,TOTAL 0.4 MG/DL (0.1-1.0); BUN/CREATININE RATIO 21; CALCIUM 8.9 MG/DL (8.5-10.1); CARBON DIOXIDE 26 MMOL/L (21-32); CHLORIDE 107 MMOL/L (98-107); CREATININE SERUM 0.82 MG/DL (0.60-1.30); GFR ESTIMATED > 60; GLUCOSE 115 MG/DL (70-105); POTASSIUM 4.1 MMOL/L (3.6-5.0); SODIUM 140 MMOL/L (135-145); TOTAL PROTEIN 6.1 GM/DL (6.4-8.2); URIC ACID 5.3 MG/DL (2.6-7.2)
[2019-08-25 09:15] LABS: BASOPHILS % (AUTO) 1 % (0-10); EOSINOPHILS # (AUTO) 0.2 10^3/uL (0.0-0.3); EOSINOPHILS % (AUTO) 3 % (0-10); HEMATOCRIT 33 % (40-54); HEMOGLOBIN 10.5 G/DL (13.3-17.7); LYMPHOCYTES # (AUTO) 0.6 X 10^3 (1.0-4.0); LYMPHOCYTES % (AUTO) 8 % (12-44); MEAN CORPUSCULAR HEMOGLOBIN 27 PG (25-34); MEAN CORPUSCULAR HGB CONC 31 G/DL (32-36); MEAN CORPUSCULAR VOLUME 85 FL (80-99); MEAN PLATELET VOLUME 9.7 FL (7.4-10.4); MONOCYTES # (AUTO) 0.8 X 10^3 (0.0-1.0); MONOCYTES % (AUTO) 9 % (0-12); NEUTROPHILS # (AUTO) 6.5 X 10^3 (1.8-7.8); NEUTROPHILS % (AUTO) 80 % (42-75); PLATELET COUNT 387 10^3/uL (130-400); RED CELL DISTRIBUTION WIDTH 23.9 % (10.0-14.5); WHITE BLOOD COUNT 8.2 10^3/uL (4.3-11.0)
[2019-08-25 09:41] LABS: ALANINE AMINOTRANSFERASE 15 U/L (0-55); ALBUMIN 3.9 GM/DL (3.2-4.5); ALKALINE PHOSPHATASE 72 U/L (40-136); BILIRUBIN,TOTAL 0.4 MG/DL (0.1-1.0); BUN/CREATININE RATIO 18; CALCIUM 9.1 MG/DL (8.5-10.1); CARBON DIOXIDE 23 MMOL/L (21-32); CHLORIDE 106 MMOL/L (98-107); CREATININE SERUM 0.83 MG/DL (0.60-1.30); GFR ESTIMATED > 60; GLUCOSE 126 MG/DL (70-105); MAGNESIUM 1.9 MG/DL (1.6-2.4); POTASSIUM 4.4 MMOL/L (3.6-5.0); SODIUM 140 MMOL/L (135-145); TOTAL PROTEIN 6.3 GM/DL (6.4-8.2); URIC ACID 5.3 MG/DL (2.6-7.2)
[2019-09-01 10:18] LABS: BASOPHILS % (AUTO) 0 % (0-10); EOSINOPHILS # (AUTO) 0.1 10^3/uL (0.0-0.3); EOSINOPHILS % (AUTO) 1 % (0-10); HEMATOCRIT 34 % (40-54); HEMOGLOBIN 10.7 G/DL (13.3-17.7); LYMPHOCYTES # (AUTO) 0.4 X 10^3 (1.0-4.0); LYMPHOCYTES % (AUTO) 8 % (12-44); MEAN CORPUSCULAR HEMOGLOBIN 27 PG (25-34); MEAN CORPUSCULAR HGB CONC 32 G/DL (32-36); MEAN CORPUSCULAR VOLUME 84 FL (80-99); MEAN PLATELET VOLUME 9.6 FL (7.4-10.4); MONOCYTES # (AUTO) 0.3 X 10^3 (0.0-1.0); MONOCYTES % (AUTO) 6 % (0-12); NEUTROPHILS # (AUTO) 4.3 X 10^3 (1.8-7.8); NEUTROPHILS % (AUTO) 85 % (42-75); PLATELET COUNT 266 10^3/uL (130-400); RED CELL DISTRIBUTION WIDTH 23.5 % (10.0-14.5); WHITE BLOOD COUNT 5.1 10^3/uL (4.3-11.0)
[2019-09-01 10:38] LABS: BUN/CREATININE RATIO 22; CALCIUM 9.1 MG/DL (8.5-10.1); CARBON DIOXIDE 26 MMOL/L (21-32); CHLORIDE 103 MMOL/L (98-107); CREATININE SERUM 0.78 MG/DL (0.60-1.30); GFR ESTIMATED > 60; GLUCOSE 119 MG/DL (70-105); POTASSIUM 4.2 MMOL/L (3.6-5.0); SODIUM 137 MMOL/L (135-145)
[2019-09-08 10:13] LABS: BASOPHILS % (AUTO) 0 % (0-10); EOSINOPHILS % (AUTO) 0 % (0-10); HEMATOCRIT 34 % (40-54); HEMOGLOBIN 10.9 G/DL (13.3-17.7); LYMPHOCYTES # (AUTO) 0.6 X 10^3 (1.0-4.0); LYMPHOCYTES % (AUTO) 4 % (12-44); MEAN CORPUSCULAR HEMOGLOBIN 28 PG (25-34); MEAN CORPUSCULAR HGB CONC 32 G/DL (32-36); MEAN CORPUSCULAR VOLUME 86 FL (80-99); MEAN PLATELET VOLUME 9.9 FL (7.4-10.4); MONOCYTES % (AUTO) 7 % (0-12); NEUTROPHILS # (AUTO) 13.6 X 10^3 (1.8-7.8); NEUTROPHILS % (AUTO) 89 % (42-75); PLATELET COUNT 154 10^3/uL (130-400); RED CELL DISTRIBUTION WIDTH 23.7 % (10.0-14.5); WHITE BLOOD COUNT 15.3 10^3/uL (4.3-11.0)
[2019-09-08 10:29] LABS: BUN/CREATININE RATIO 16; CALCIUM 9.1 MG/DL (8.5-10.1); CARBON DIOXIDE 24 MMOL/L (21-32); CHLORIDE 106 MMOL/L (98-107); CREATININE SERUM 0.83 MG/DL (0.60-1.30); GFR ESTIMATED > 60; GLUCOSE 103 MG/DL (70-105); POTASSIUM 4.5 MMOL/L (3.6-5.0); SODIUM 139 MMOL/L (135-145)
[~2019-09-15] VITALS: Ht 180.3 cm; Wt 78.9 kg
[~2019-09-15 09:53] MED LIST changes: +ACETAMINOPHEN 325 MG TAB (TYLENOL) CANCER CTR PO PRN; +CYCLOPHOSPHAMIDE IV SCH; +FOSAPREPITANT (CANCER CENTER) 150 MG in NS (IVPB) CANCER CENTER ONLY 150 ML IV SCH; +NS IV 1000 ML (CANCER CTR) IV SCH; +ONDANSETRON MDV (CANCER CENTER 16 MG, DEXAMETHASONE INJECTION 10 MG in NS (IVPB) CANCER... IV SCH; +PALONOSETRON HCL 0.25 MG, DEXAMETHASONE INJECTION 10 MG in NS (IVPB) CANCER CENTER 50 ML IV SCH; +PEGFILGRASTIM 6 MG/0.6 ML ONPRO KIT SQ SCH; +PEGFILGRASTIM 6 MG/0.6ML NEULASTA SC SCH; +[UNRECOGNIZED DRUG - OTHER] IV SCH; +diphenhydrAMINE 25 MG TAB (BENADRYL) CANCER CENTER PO ONE; +diphenhydrAMINE 50 MG/ML INJ (CANCER CENTER) IV PRN; +riTUXimab 500 MG, riTUXimab FOR IV INJ CONC 200 MG in NS (IVPB) CANCER CENTER ONLY 150 ML IV SCH; +vinCRIStine SULFATE 2 MG in NS (IVPB) CANCER CENTER 50 ML IV SCH
[2019-09-15 10:07] LABS: BASOPHILS % (AUTO) 0 % (0-10); EOSINOPHILS # (AUTO) 0.1 10^3/uL (0.0-0.3); EOSINOPHILS % (AUTO) 1 % (0-10); HEMATOCRIT 34 % (40-54); HEMOGLOBIN 10.8 G/DL (13.3-17.7); LYMPHOCYTES # (AUTO) 0.5 X 10^3 (1.0-4.0); LYMPHOCYTES % (AUTO) 5 % (12-44); MEAN CORPUSCULAR HEMOGLOBIN 28 PG (25-34); MEAN CORPUSCULAR HGB CONC 32 G/DL (32-36); MEAN CORPUSCULAR VOLUME 87 FL (80-99); MEAN PLATELET VOLUME 9.7 FL (7.4-10.4); MONOCYTES % (AUTO) 9 % (0-12); NEUTROPHILS # (AUTO) 8.9 X 10^3 (1.8-7.8); NEUTROPHILS % (AUTO) 85 % (42-75); PLATELET COUNT 322 10^3/uL (130-400); RED CELL DISTRIBUTION WIDTH 23.3 % (10.0-14.5); WHITE BLOOD COUNT 10.5 10^3/uL (4.3-11.0)
[2019-09-15 10:23] LABS: BUN/CREATININE RATIO 18; CARBON DIOXIDE 22 MMOL/L (21-32); CHLORIDE 106 MMOL/L (98-107); CREATININE SERUM 0.79 MG/DL (0.60-1.30); GFR ESTIMATED > 60; GLUCOSE 115 MG/DL (70-105); POTASSIUM 4.2 MMOL/L (3.6-5.0); SODIUM 139 MMOL/L (135-145)
== END 2019-09-20 | disposition home or self-care (01) ==
LOC: ONC 09:53
PROVIDERS: ATTEND Internal Medicine Hematology & Oncology
DX: Z51.11 Encounter for antineoplastic chemotherapy (principal); C85.90 Non-Hodgkin lymphoma, unspecified, unspecified site
CPT/HCPCS: 80053; 82728; 83540; 83615; 85007; 85027; 85045; G0463; 36415; 36591; 80048; 80074; 83735; 84550; 85025; 96360; 96361; 96367; 96372; 96375; 96377; 96411; 96413; 96415; 96417; 99214; J2505; J9312

== ENCOUNTER → 2019-10-15 | Outpatient (CLI) | payer MEDICARE ==
[~2019-10-15] MED LIST changes: -ACETAMINOPHEN 325 MG TAB (TYLENOL) CANCER CTR PO PRN; -CYCLOPHOSPHAMIDE IV SCH; -FOSAPREPITANT (CANCER CENTER) 150 MG in NS (IVPB) CANCER CENTER ONLY 150 ML IV SCH; -NS IV 1000 ML (CANCER CTR) IV SCH; -ONDANSETRON MDV (CANCER CENTER 16 MG, DEXAMETHASONE INJECTION 10 MG in NS (IVPB) CANCER... IV SCH; -PALONOSETRON HCL 0.25 MG, DEXAMETHASONE INJECTION 10 MG in NS (IVPB) CANCER CENTER 50 ML IV SCH; -PEGFILGRASTIM 6 MG/0.6 ML ONPRO KIT SQ SCH; -PEGFILGRASTIM 6 MG/0.6ML NEULASTA SC SCH; -[UNRECOGNIZED DRUG - OTHER] IV SCH; -diphenhydrAMINE 25 MG TAB (BENADRYL) CANCER CENTER PO ONE; -diphenhydrAMINE 50 MG/ML INJ (CANCER CENTER) IV PRN; -riTUXimab 500 MG, riTUXimab FOR IV INJ CONC 200 MG in NS (IVPB) CANCER CENTER ONLY 150 ML IV SCH; -vinCRIStine SULFATE 2 MG in NS (IVPB) CANCER CENTER 50 ML IV SCH
== END ==
LOC: CARD 08:37
PROVIDERS: ATTEND Physician Assistant
DX: R00.2 Palpitations (principal); I65.23 Occlusion and stenosis of bilateral carotid arteries; C83.38 Diffuse large B-cell lymphoma, lymph nodes of multiple sites; E78.2 Mixed hyperlipidemia; J90 Pleural effusion, not elsewhere classified
CPT/HCPCS: 93306

== ENCOUNTER → 2019-12-07 | Outpatient (CLI) | payer MEDICARE | LOC: CARD 10:00 | PROVIDERS: ATTEND Internal Medicine Hematology & Oncology | DX: Z51.81 Encounter for therapeutic drug level monitoring (principal); C83.38 Diffuse large B-cell lymphoma, lymph nodes of multiple sites; J90 Pleural effusion, not elsewhere classified; I08.1 Rheumatic disorders of both mitral and tricuspid valves | CPT/HCPCS: 93306 ==

== ENCOUNTER → 2019-12-14 | Outpatient (CLI) | payer MEDICARE ==
--- NOTE | 2019-12-14 16:18 | Diagnostic Imaging Report ---
INDICATION: Diffuse large B-cell lymphoma. This study is performed to evaluate treatment response and restaging. Serum blood glucose level at the time of injection is 117 mg/dL. The patient was administered 14.5 mCi F-18 FDG intravenously in the right antecubital location and PET imaging was performed from the top of the skull to mid thighs. Noncontrast CT was also performed for attenuation correction and anatomic correlation. COMPARISON is made with prior PET/CT study from 08/24/2019. There is symmetric activity throughout the brain. The soft tissues of the neck are unremarkable. The activity noted in the supraclavicular regions bilaterally appears to be muscular uptake. No hilar hypermetabolism is seen. The area of hypermetabolism in the lower anterior mediastinum persists with SUV max of approximately 9. There is also continued abnormal hypermetabolism in the left abdomen anteriorly as well as hepatogastric location. Large nava mass in the left abdomen is again seen demonstrating SUV max of 19. Area of hypermetabolism in the central retroperitoneum persists. There is also some activity in the portacaval region, similar to prior. However, the overall degree of hypermetabolism continues to show some slight decrease at all of these locations when compared with the study from August. No new foci of hypermetabolism are identified. IMPRESSION: Continued abnormal regions of hypermetabolism in the lower anterior mediastinum, left abdomen, central retroperitoneum, portacaval as well as hepatogastric regions. However, the overall degree of hypermetabolism in size of nava masses do appear to be decreased. No new areas of hypermetabolism are identified. There does continue to be a large left pleural effusion. Dictated by: Dictated on workstation # [id number]
== END ==
LOC: RAD 08:07
PROVIDERS: ATTEND Internal Medicine Hematology & Oncology
DX: Z51.11 Encounter for antineoplastic chemotherapy (principal); C83.38 Diffuse large B-cell lymphoma, lymph nodes of multiple sites; E88.89 Other specified metabolic disorders
CPT/HCPCS: 78815; A9552

== ENCOUNTER 2019-12-15 08:43 | Outpatient (RCR) | payer MEDICARE ==
[2019-09-22 10:49] LABS: BASOPHILS % (AUTO) 1 % (0-10); EOSINOPHILS # (AUTO) 0.2 10^3/uL (0.0-0.3); EOSINOPHILS % (AUTO) 6 % (0-10); HEMATOCRIT 34 % (40-54); HEMOGLOBIN 10.8 G/DL (13.3-17.7); LYMPHOCYTES # (AUTO) 0.7 X 10^3 (1.0-4.0); LYMPHOCYTES % (AUTO) 19 % (12-44); MEAN CORPUSCULAR HEMOGLOBIN 28 PG (25-34); MEAN CORPUSCULAR HGB CONC 32 G/DL (32-36); MEAN CORPUSCULAR VOLUME 88 FL (80-99); MEAN PLATELET VOLUME 9.8 FL (7.4-10.4); MONOCYTES # (AUTO) 0.8 X 10^3 (0.0-1.0); MONOCYTES % (AUTO) 22 % (0-12); NEUTROPHILS # (AUTO) 1.8 X 10^3 (1.8-7.8); NEUTROPHILS % (AUTO) 51 % (42-75); PLATELET COUNT 347 10^3/uL (130-400); WHITE BLOOD COUNT 3.4 10^3/uL (4.3-11.0)
[2019-09-22 11:09] LABS: ALANINE AMINOTRANSFERASE 15 U/L (0-55); ALKALINE PHOSPHATASE 62 U/L (40-136); BILIRUBIN,TOTAL 0.4 MG/DL (0.1-1.0); BUN/CREATININE RATIO 18; CARBON DIOXIDE 25 MMOL/L (21-32); CHLORIDE 105 MMOL/L (98-107); CREATININE SERUM 0.78 MG/DL (0.60-1.30); GFR ESTIMATED > 60; GLUCOSE 106 MG/DL (70-105); POTASSIUM 4.2 MMOL/L (3.6-5.0); SODIUM 138 MMOL/L (135-145); TOTAL PROTEIN 6.5 GM/DL (6.4-8.2)
[2019-09-29 10:02] LABS: BASOPHILS % (AUTO) 0 % (0-10); EOSINOPHILS # (AUTO) 0.1 10^3/uL (0.0-0.3); EOSINOPHILS % (AUTO) 6 % (0-10); HEMATOCRIT 35 % (40-54); HEMOGLOBIN 11.3 G/DL (13.3-17.7); LYMPHOCYTES # (AUTO) 0.5 X 10^3 (1.0-4.0); LYMPHOCYTES % (AUTO) 23 % (12-44); MEAN CORPUSCULAR HEMOGLOBIN 28 PG (25-34); MEAN CORPUSCULAR HGB CONC 32 G/DL (32-36); MEAN CORPUSCULAR VOLUME 87 FL (80-99); MEAN PLATELET VOLUME 10.1 FL (7.4-10.4); MONOCYTES # (AUTO) 0.6 X 10^3 (0.0-1.0); MONOCYTES % (AUTO) 27 % (0-12); NEUTROPHILS % (AUTO) 44 % (42-75); PLATELET COUNT 232 10^3/uL (130-400); WHITE BLOOD COUNT 2.2 10^3/uL (4.3-11.0)
[2019-09-29 10:22] LABS: BUN/CREATININE RATIO 16; CARBON DIOXIDE 25 MMOL/L (21-32); CHLORIDE 102 MMOL/L (98-107); GFR ESTIMATED > 60; GLUCOSE 122 MG/DL (70-105); POTASSIUM 3.9 MMOL/L (3.6-5.0); SODIUM 137 MMOL/L (135-145)
[2019-10-06 10:42] LABS: BASOPHILS % (AUTO) 0 % (0-10); EOSINOPHILS % (AUTO) 0 % (0-10); HEMATOCRIT 37 % (40-54); HEMOGLOBIN 11.8 G/DL (13.3-17.7); LYMPHOCYTES # (AUTO) 0.7 X 10^3 (1.0-4.0); LYMPHOCYTES % (AUTO) 4 % (12-44); MEAN CORPUSCULAR HEMOGLOBIN 28 PG (25-34); MEAN CORPUSCULAR HGB CONC 32 G/DL (32-36); MEAN CORPUSCULAR VOLUME 87 FL (80-99); MEAN PLATELET VOLUME 9.8 FL (7.4-10.4); MONOCYTES # (AUTO) 0.8 X 10^3 (0.0-1.0); MONOCYTES % (AUTO) 5 % (0-12); NEUTROPHILS # (AUTO) 15.1 X 10^3 (1.8-7.8); NEUTROPHILS % (AUTO) 90 % (42-75); PLATELET COUNT 113 10^3/uL (130-400); WHITE BLOOD COUNT 16.8 10^3/uL (4.3-11.0)
[2019-10-06 10:59] LABS: BUN/CREATININE RATIO 14; CALCIUM 9.2 MG/DL (8.5-10.1); CARBON DIOXIDE 23 MMOL/L (21-32); CHLORIDE 106 MMOL/L (98-107); CREATININE SERUM 0.87 MG/DL (0.60-1.30); GFR ESTIMATED > 60; GLUCOSE 107 MG/DL (70-105); POTASSIUM 4.7 MMOL/L (3.6-5.0); SODIUM 140 MMOL/L (135-145)
[2019-10-13 10:22] LABS: BASOPHILS % (AUTO) 0 % (0-10); EOSINOPHILS # (AUTO) 0.1 10^3/uL (0.0-0.3); EOSINOPHILS % (AUTO) 1 % (0-10); HEMATOCRIT 34 % (40-54); HEMOGLOBIN 10.7 G/DL (13.3-17.7); LYMPHOCYTES # (AUTO) 0.5 X 10^3 (1.0-4.0); LYMPHOCYTES % (AUTO) 6 % (12-44); MEAN CORPUSCULAR HEMOGLOBIN 29 PG (25-34); MEAN CORPUSCULAR HGB CONC 32 G/DL (32-36); MEAN CORPUSCULAR VOLUME 90 FL (80-99); MEAN PLATELET VOLUME 9.4 FL (7.4-10.4); MONOCYTES # (AUTO) 0.9 X 10^3 (0.0-1.0); MONOCYTES % (AUTO) 10 % (0-12); NEUTROPHILS # (AUTO) 7.6 X 10^3 (1.8-7.8); NEUTROPHILS % (AUTO) 83 % (42-75); PLATELET COUNT 345 10^3/uL (130-400); WHITE BLOOD COUNT 9.1 10^3/uL (4.3-11.0)
[2019-10-13 10:43] LABS: BUN/CREATININE RATIO 19; CALCIUM 9.1 MG/DL (8.5-10.1); CARBON DIOXIDE 23 MMOL/L (21-32); CHLORIDE 106 MMOL/L (98-107); CREATININE SERUM 0.85 MG/DL (0.60-1.30); GFR ESTIMATED > 60; GLUCOSE 121 MG/DL (70-105); SODIUM 139 MMOL/L (135-145)
[2019-10-20 09:00] LABS: BASOPHILS % (AUTO) 0 % (0-10); EOSINOPHILS # (AUTO) 0.1 10^3/uL (0.0-0.3); EOSINOPHILS % (AUTO) 1 % (0-10); HEMATOCRIT 33 % (40-54); HEMOGLOBIN 10.8 G/DL (13.3-17.7); LYMPHOCYTES # (AUTO) 0.5 X 10^3 (1.0-4.0); LYMPHOCYTES % (AUTO) 6 % (12-44); MEAN CORPUSCULAR HEMOGLOBIN 29 PG (25-34); MEAN CORPUSCULAR HGB CONC 33 G/DL (32-36); MEAN CORPUSCULAR VOLUME 89 FL (80-99); MEAN PLATELET VOLUME 9.6 FL (7.4-10.4); MONOCYTES # (AUTO) 1.1 X 10^3 (0.0-1.0); MONOCYTES % (AUTO) 13 % (0-12); NEUTROPHILS # (AUTO) 6.6 X 10^3 (1.8-7.8); NEUTROPHILS % (AUTO) 79 % (42-75); PLATELET COUNT 378 10^3/uL (130-400); WHITE BLOOD COUNT 8.3 10^3/uL (4.3-11.0)
[2019-10-20 09:32] LABS: ALANINE AMINOTRANSFERASE 16 U/L (0-55); ALBUMIN 3.8 GM/DL (3.2-4.5); ALKALINE PHOSPHATASE 64 U/L (40-136); BILIRUBIN,TOTAL 0.5 MG/DL (0.1-1.0); BUN/CREATININE RATIO 20; CARBON DIOXIDE 23 MMOL/L (21-32); CHLORIDE 107 MMOL/L (98-107); CREATININE SERUM 0.82 MG/DL (0.60-1.30); GFR ESTIMATED > 60; GLUCOSE 125 MG/DL (70-105); SODIUM 140 MMOL/L (135-145); TOTAL PROTEIN 6.5 GM/DL (6.4-8.2)
[2019-10-27 10:42] LABS: BASOPHILS % (AUTO) 1 % (0-10); EOSINOPHILS # (AUTO) 0.1 10^3/uL (0.0-0.3); EOSINOPHILS % (AUTO) 2 % (0-10); HEMATOCRIT 35 % (40-54); HEMOGLOBIN 11.2 G/DL (13.3-17.7); LYMPHOCYTES # (AUTO) 0.5 X 10^3 (1.0-4.0); LYMPHOCYTES % (AUTO) 11 % (12-44); MEAN CORPUSCULAR HEMOGLOBIN 28 PG (25-34); MEAN CORPUSCULAR HGB CONC 32 G/DL (32-36); MEAN CORPUSCULAR VOLUME 88 FL (80-99); MEAN PLATELET VOLUME 9.2 FL (7.4-10.4); MONOCYTES # (AUTO) 0.2 X 10^3 (0.0-1.0); MONOCYTES % (AUTO) 5 % (0-12); NEUTROPHILS # (AUTO) 3.5 X 10^3 (1.8-7.8); NEUTROPHILS % (AUTO) 81 % (42-75); PLATELET COUNT 232 10^3/uL (130-400); WHITE BLOOD COUNT 4.3 10^3/uL (4.3-11.0)
[2019-10-27 10:59] LABS: BUN/CREATININE RATIO 21; CARBON DIOXIDE 25 MMOL/L (21-32); CHLORIDE 102 MMOL/L (98-107); CREATININE SERUM 0.81 MG/DL (0.60-1.30); GFR ESTIMATED > 60; GLUCOSE 129 MG/DL (70-105); POTASSIUM 4.6 MMOL/L (3.6-5.0); SODIUM 137 MMOL/L (135-145)
[2019-11-03 10:17] LABS: BASOPHILS % (AUTO) 0 % (0-10); EOSINOPHILS % (AUTO) 0 % (0-10); HEMATOCRIT 35 % (40-54); HEMOGLOBIN 11.1 G/DL (13.3-17.7); LYMPHOCYTES # (AUTO) 0.7 X 10^3 (1.0-4.0); LYMPHOCYTES % (AUTO) 6 % (12-44); MEAN CORPUSCULAR HEMOGLOBIN 28 PG (25-34); MEAN CORPUSCULAR HGB CONC 32 G/DL (32-36); MEAN CORPUSCULAR VOLUME 88 FL (80-99); MONOCYTES % (AUTO) 10 % (0-12); NEUTROPHILS % (AUTO) 83 % (42-75); PLATELET COUNT 150 10^3/uL (130-400); WHITE BLOOD COUNT 10.8 10^3/uL (4.3-11.0)
[2019-11-03 10:36] LABS: BUN/CREATININE RATIO 15; CALCIUM 9.1 MG/DL (8.5-10.1); CARBON DIOXIDE 26 MMOL/L (21-32); CHLORIDE 107 MMOL/L (98-107); CREATININE SERUM 0.92 MG/DL (0.60-1.30); GFR ESTIMATED > 60; GLUCOSE 109 MG/DL (70-105); POTASSIUM 4.9 MMOL/L (3.6-5.0); SODIUM 141 MMOL/L (135-145)
[2019-11-10 10:49] LABS: BASOPHILS % (AUTO) 0 % (0-10); EOSINOPHILS # (AUTO) 0.1 10^3/uL (0.0-0.3); EOSINOPHILS % (AUTO) 1 % (0-10); HEMATOCRIT 34 % (40-54); LYMPHOCYTES # (AUTO) 0.5 X 10^3 (1.0-4.0); LYMPHOCYTES % (AUTO) 5 % (12-44); MEAN CORPUSCULAR HEMOGLOBIN 28 PG (25-34); MEAN CORPUSCULAR HGB CONC 32 G/DL (32-36); MEAN CORPUSCULAR VOLUME 88 FL (80-99); MEAN PLATELET VOLUME 10.2 FL (7.4-10.4); MONOCYTES # (AUTO) 0.9 X 10^3 (0.0-1.0); MONOCYTES % (AUTO) 10 % (0-12); NEUTROPHILS # (AUTO) 8.3 X 10^3 (1.8-7.8); NEUTROPHILS % (AUTO) 85 % (42-75); PLATELET COUNT 279 10^3/uL (130-400); WHITE BLOOD COUNT 9.8 10^3/uL (4.3-11.0)
[2019-11-10 11:00] LABS: BUN/CREATININE RATIO 19; CALCIUM 8.8 MG/DL (8.5-10.1); CARBON DIOXIDE 21 MMOL/L (21-32); CHLORIDE 107 MMOL/L (98-107); CREATININE SERUM 0.78 MG/DL (0.60-1.30); GFR ESTIMATED > 60; GLUCOSE 102 MG/DL (70-105); POTASSIUM 4.6 MMOL/L (3.6-5.0); SODIUM 139 MMOL/L (135-145)
[2019-11-17 09:56] LABS: BASOPHILS % (AUTO) 1 % (0-10); EOSINOPHILS # (AUTO) 0.1 10^3/uL (0.0-0.3); EOSINOPHILS % (AUTO) 2 % (0-10); HEMATOCRIT 35 % (40-54); HEMOGLOBIN 11.2 G/DL (13.3-17.7); LYMPHOCYTES # (AUTO) 0.3 X 10^3 (1.0-4.0); LYMPHOCYTES % (AUTO) 6 % (12-44); MEAN CORPUSCULAR HEMOGLOBIN 28 PG (25-34); MEAN CORPUSCULAR HGB CONC 32 G/DL (32-36); MEAN CORPUSCULAR VOLUME 87 FL (80-99); MEAN PLATELET VOLUME 9.8 FL (7.4-10.4); MONOCYTES % (AUTO) 17 % (0-12); NEUTROPHILS # (AUTO) 4.4 X 10^3 (1.8-7.8); NEUTROPHILS % (AUTO) 75 % (42-75); PLATELET COUNT 398 10^3/uL (130-400); WHITE BLOOD COUNT 5.9 10^3/uL (4.3-11.0)
[2019-11-17 10:22] LABS: ALANINE AMINOTRANSFERASE 15 U/L (0-55); ALBUMIN 3.8 GM/DL (3.2-4.5); ALKALINE PHOSPHATASE 69 U/L (40-136); BILIRUBIN,TOTAL 0.6 MG/DL (0.1-1.0); BUN/CREATININE RATIO 20; CARBON DIOXIDE 24 MMOL/L (21-32); CHLORIDE 103 MMOL/L (98-107); CREATININE SERUM 0.81 MG/DL (0.60-1.30); GFR ESTIMATED > 60; GLUCOSE 118 MG/DL (70-105); POTASSIUM 4.2 MMOL/L (3.6-5.0); SODIUM 136 MMOL/L (135-145); TOTAL PROTEIN 6.7 GM/DL (6.4-8.2)
[2019-11-25 06:50] LABS: BUN/CREATININE RATIO 19; CARBON DIOXIDE 27 MMOL/L (21-32); CHLORIDE 102 MMOL/L (98-107); CREATININE SERUM 0.84 MG/DL (0.60-1.30); GFR ESTIMATED > 60; POTASSIUM 4.7 MMOL/L (3.6-5.0); SODIUM 137 MMOL/L (135-145)
[2019-11-25 06:51] LABS: CALCIUM 9.1 MG/DL (8.5-10.1); GLUCOSE 134 MG/DL (70-105)
[2019-11-25 06:58] LABS: HEMATOCRIT 34 % (40-54); HEMOGLOBIN 10.8 G/DL (13.3-17.7); MEAN CORPUSCULAR HEMOGLOBIN 28 PG (25-34); MEAN CORPUSCULAR VOLUME 86 FL (80-99); WHITE BLOOD COUNT 0.5 10^3/uL (4.3-11.0)
[2019-11-25 06:59] LABS: BASOPHILS % (AUTO) 0 % (0-10); EOSINOPHILS % (AUTO) 6 % (0-10); LYMPHOCYTES # (AUTO) 0.3 X 10^3 (1.0-4.0); LYMPHOCYTES % (AUTO) 63 % (12-44); MEAN CORPUSCULAR HGB CONC 32 G/DL (32-36); MONOCYTES # (AUTO) 0.2 X 10^3 (0.0-1.0); MONOCYTES % (AUTO) 31 % (0-12); NEUTROPHILS % (AUTO) 0 % (42-75); PLATELET COUNT 286 10^3/uL (130-400)
[2019-12-01 10:14] LABS: BASOPHILS # (AUTO) 0.1 10^3/uL (0.0-0.1); BASOPHILS % (AUTO) 1 % (0-10); EOSINOPHILS % (AUTO) 0 % (0-10); HEMATOCRIT 34 % (40-54); HEMOGLOBIN 10.8 G/DL (13.3-17.7); LYMPHOCYTES # (AUTO) 0.7 X 10^3 (1.0-4.0); LYMPHOCYTES % (AUTO) 5 % (12-44); MEAN CORPUSCULAR HEMOGLOBIN 27 PG (25-34); MEAN CORPUSCULAR HGB CONC 32 G/DL (32-36); MEAN CORPUSCULAR VOLUME 87 FL (80-99); MEAN PLATELET VOLUME 10.7 FL (7.4-10.4); MONOCYTES # (AUTO) 0.9 X 10^3 (0.0-1.0); MONOCYTES % (AUTO) 8 % (0-12); NEUTROPHILS # (AUTO) 10.6 X 10^3 (1.8-7.8); NEUTROPHILS % (AUTO) 86 % (42-75); PLATELET COUNT 182 10^3/uL (130-400); WHITE BLOOD COUNT 12.3 10^3/uL (4.3-11.0)
[2019-12-01 10:26] LABS: BUN/CREATININE RATIO 15; CALCIUM 9.3 MG/DL (8.5-10.1); CARBON DIOXIDE 26 MMOL/L (21-32); CHLORIDE 103 MMOL/L (98-107); CREATININE SERUM 0.84 MG/DL (0.60-1.30); GFR ESTIMATED > 60; GLUCOSE 119 MG/DL (70-105); POTASSIUM 4.2 MMOL/L (3.6-5.0); SODIUM 138 MMOL/L (135-145)
[2019-12-07 10:21] LABS: BASOPHILS % (AUTO) 0 % (0-10); EOSINOPHILS % (AUTO) 0 % (0-10); HEMATOCRIT 33 % (40-54); HEMOGLOBIN 10.4 G/DL (13.3-17.7); LYMPHOCYTES # (AUTO) 0.5 X 10^3 (1.0-4.0); LYMPHOCYTES % (AUTO) 5 % (12-44); MEAN CORPUSCULAR HEMOGLOBIN 28 PG (25-34); MEAN CORPUSCULAR HGB CONC 32 G/DL (32-36); MEAN CORPUSCULAR VOLUME 87 FL (80-99); MEAN PLATELET VOLUME 9.8 FL (7.4-10.4); MONOCYTES % (AUTO) 9 % (0-12); NEUTROPHILS # (AUTO) 9.9 X 10^3 (1.8-7.8); NEUTROPHILS % (AUTO) 86 % (42-75); PLATELET COUNT 281 10^3/uL (130-400); WHITE BLOOD COUNT 11.4 10^3/uL (4.3-11.0)
[2019-12-07 10:38] LABS: BUN/CREATININE RATIO 19; CALCIUM 9.1 MG/DL (8.5-10.1); CARBON DIOXIDE 24 MMOL/L (21-32); CHLORIDE 103 MMOL/L (98-107); GFR ESTIMATED > 60; GLUCOSE 101 MG/DL (70-105); POTASSIUM 4.3 MMOL/L (3.6-5.0); SODIUM 136 MMOL/L (135-145)
[~2019-12-15 08:43] MED LIST changes: +ACETAMINOPHEN 325 MG TAB (TYLENOL) CANCER CTR PO PRN; +CYCLOPHOSPHAMIDE IV SCH; +FOSAPREPITANT (CANCER CENTER) 150 MG in NS (IVPB) CANCER CENTER ONLY 150 ML IV SCH; +NS IV 1000 ML (CANCER CTR) IV SCH; +NS IV SCH; +PEGFILGRASTIM 6 MG/0.6 ML ONPRO KIT SQ SCH; +RITUXIMAB-ABBS 500 MG, RITUXIMAB-ABBS 200 MG in NS (IVPB) CANCER CENTER ONLY 150 ML IV SCH; +VINCRISTINE SULFATE IV SCH; +[UNRECOGNIZED DRUG - OTHER] IV SCH; +diphenhydrAMINE 25 MG TAB (BENADRYL) CANCER CENTER PO ONE; +diphenhydrAMINE 25 MG TAB (BENADRYL) CANCER CENTER PO SCH; +diphenhydrAMINE 50 MG/ML INJ (CANCER CENTER) IV PRN; +riTUXimab 500 MG, riTUXimab FOR IV INJ CONC 200 MG in NS (IVPB) CANCER CENTER ONLY 150 ML IV SCH; +vinCRIStine SULFATE 2 MG in NS (IVPB) CANCER CENTER 50 ML IV SCH
[2019-12-15 09:08] LABS: BASOPHILS % (AUTO) 0 % (0-10); EOSINOPHILS # (AUTO) 0.1 10^3/uL (0.0-0.3); EOSINOPHILS % (AUTO) 1 % (0-10); HEMATOCRIT 33 % (40-54); HEMOGLOBIN 10.5 G/DL (13.3-17.7); LYMPHOCYTES # (AUTO) 0.3 X 10^3 (1.0-4.0); LYMPHOCYTES % (AUTO) 6 % (12-44); MEAN CORPUSCULAR HEMOGLOBIN 27 PG (25-34); MEAN CORPUSCULAR HGB CONC 32 G/DL (32-36); MEAN CORPUSCULAR VOLUME 86 FL (80-99); MEAN PLATELET VOLUME 9.7 FL (7.4-10.4); MONOCYTES % (AUTO) 19 % (0-12); NEUTROPHILS % (AUTO) 74 % (42-75); PLATELET COUNT 426 10^3/uL (130-400); WHITE BLOOD COUNT 5.5 10^3/uL (4.3-11.0)
[2019-12-15 09:37] LABS: ALANINE AMINOTRANSFERASE 14 U/L (0-55); ALBUMIN 3.8 GM/DL (3.2-4.5); ALKALINE PHOSPHATASE 73 U/L (40-136); BILIRUBIN,TOTAL 0.7 MG/DL (0.1-1.0); BUN/CREATININE RATIO 20; CARBON DIOXIDE 25 MMOL/L (21-32); CHLORIDE 103 MMOL/L (98-107); CREATININE SERUM 0.82 MG/DL (0.60-1.30); GFR ESTIMATED > 60; GLUCOSE 140 MG/DL (70-105); POTASSIUM 4.1 MMOL/L (3.6-5.0); SODIUM 137 MMOL/L (135-145); TOTAL PROTEIN 6.7 GM/DL (6.4-8.2)
== END 2019-12-21 | disposition home or self-care (01) ==
LOC: ONC 08:43
PROVIDERS: ATTEND Internal Medicine Hematology & Oncology
DX: Z51.11 Encounter for antineoplastic chemotherapy (principal); C85.90 Non-Hodgkin lymphoma, unspecified, unspecified site; C83.38 Diffuse large B-cell lymphoma, lymph nodes of multiple sites; K59.00 Constipation, unspecified
CPT/HCPCS: 80053; 83615; 85025; 96367; 96375; 96377; 96411; 96413; 96417; G0463; 36591; 80048; J2505; J9312

== ENCOUNTER → 2019-12-15 | Outpatient (CLI) | payer MEDICARE ==
[~2019-12-15] VITALS: Ht 180.3 cm; Wt 76.4 kg
[2019-12-15 10:35] VITALS: BP 129/77
[2019-12-15 10:40] VITALS: BP 109/66
[2019-12-15 10:50] VITALS: BP 101/62
[2019-12-15 10:57] VITALS: BP 125/78
[2019-12-15 11:05] VITALS: BP 109/62
[2019-12-15 11:15] VITALS: BP 108/73
--- NOTE | 2019-12-15 11:37 | Diagnostic Imaging Report ---
INDICATION: Left thoracentesis. Time of exam 11:27 AM Correlation is made with prior chest from 06/24/2019. There has been reduction in left-sided pleural effusion, status post thoracentesis. No pneumothorax is identified. A right chest wall port has tip overlying the right SVC. Pulmonary vascularity is normal. IMPRESSION: Status post left thoracentesis. No pneumothorax is detected. Dictated by: Dictated on workstation # [id number]
--- NOTE | 2019-12-15 12:27 | Diagnostic Imaging Report ---
INDICATION: Left subpleural effusion. Sonographic guidance was provided for Dr. Batres for purpose of a left-sided thoracentesis. Images demonstrate a large left pleural effusion. IMPRESSION: Marking for Dr. Batres for purpose of left-sided thoracentesis. Dictated by: Dictated on workstation # [id number]
[2019-12-15 12:50] LABS: AMYLASE,BODY FLUID 31 U/L; GLUCOSE,BODY FLUID 99 MG/DL; LDH,BODY FLUID 717 U/L; TOTAL PROTEIN,BODY FLUID 4.3 G/DL
[2019-12-15 14:57] LABS: BODY FLUID SOURCE PLEURAL
[2019-12-15 14:59] LABS: BODY FLUID APPEARENCE SL CLOUDY; BODY FLUID COLOR XANTHOCHROMIC
[2019-12-15 15:04] LABS: BODY FLUID RBC COUNT 13950 /uL; BODY FLUID WBC TOTAL COUNT 305 /uL
[2019-12-15 15:05] LABS: BF OTHER CELLS 4 %; LYMPHOCYTES,BODY FLUID 74 %
--- NOTE | 2019-12-20 01:18 | OPERATIVE REPORT ---
DATE OF SERVICE: 12/15/2019 PREOPERATIVE DIAGNOSIS: Left pleural effusion. POSTOPERATIVE DIAGNOSIS: Left pleural effusion. PROCEDURE: Left ultrasound-guided thoracentesis. SURGEON: Kuldip Batres DO ANESTHESIA: 1% lidocaine. ESTIMATED BLOOD LOSS: Minimal. COMPLICATIONS: None. INDICATIONS: The patient is a 69-year-old male with left pleural effusion having some shortness of breath. He understands risks and benefits of procedure and wished to proceed with procedure. Consent was signed. DESCRIPTION OF PROCEDURE: The patient was taken to the procedure room. Ultrasound was used to isolate the largest pocket of the left chest cavity. The area was prepped and draped in sterile fashion. Timeout was performed. Local anesthetic was infiltrated in the area of the largest pocket that was redemonstrated by ultrasound. A #11 blade scalpel was used to make a small skin incision and a Eaqj-A-[id number] needle and catheter were advanced through the incision until slightly roosevelt-colored fluid was withdrawn. The catheter was inserted and the needle was removed. A total of 2675 mL of fluid was withdrawn and the catheter was then removed. The patient tolerated procedure well without complications. He was taken to recovery room in stable condition. Chest x-ray pending. Job ID: [id number] DocumentID: [id number] Dictated Date: 12/19/2019 15:43:36 Tape Deck Installer Date: 12/20/2019 01:17:58 Dictated By: KULDIP BATRES DO
== END ==
LOC: RAD 10:06
PROVIDERS: ATTEND Surgery
DX: J90 Pleural effusion, not elsewhere classified (principal)
CPT/HCPCS: 32555; 71045; 82150; 82570; 82945; 83615; 84157; 87070; 87075; 87205; 89051; A7048

== ENCOUNTER 2020-07-12 08:54 | Outpatient (RCR) | payer MEDICARE ==
[2020-04-17 15:18] LABS: BASOPHILS % (AUTO) 1 % (0-10); EOSINOPHILS % (AUTO) 0 % (0-10); HEMATOCRIT 21 % (40-54); LYMPHOCYTES # (AUTO) 0.4 10^3/uL (1.0-4.0); LYMPHOCYTES % (AUTO) 36 % (12-44); MEAN CORPUSCULAR HEMOGLOBIN 31 pg (25-34); MEAN CORPUSCULAR HGB CONC 32 g/dL (32-36); MEAN CORPUSCULAR VOLUME 95 fL (80-99); MEAN PLATELET VOLUME 10.7 fL (9.0-12.2); MONOCYTES # (AUTO) 0.3 10^3/uL (0.0-1.0); MONOCYTES % (AUTO) 24 % (0-12); NEUTROPHILS # (AUTO) 0.4 10^3/uL (1.8-7.8); NEUTROPHILS % (AUTO) 38 % (42-75)
[2020-04-17 15:26] LABS: HEMOGLOBIN 6.9 g/dL (13.3-17.7); PLATELET COUNT 34 10^3/uL (130-400); WHITE BLOOD COUNT 1.1 10^3/uL (4.3-11.0)
[2020-04-17 15:43] LABS: ALANINE AMINOTRANSFERASE 24 U/L (0-55); ALBUMIN 4.1 GM/DL (3.2-4.5); ALKALINE PHOSPHATASE 57 U/L (40-136); BILIRUBIN,TOTAL 0.4 MG/DL (0.1-1.0); BUN/CREATININE RATIO 25; CALCIUM 9.2 MG/DL (8.5-10.1); CARBON DIOXIDE 23 MMOL/L (21-32); CHLORIDE 104 MMOL/L (98-107); CREATININE SERUM 0.83 MG/DL (0.60-1.30); GFR ESTIMATED > 60; GLUCOSE 117 MG/DL (70-105); POTASSIUM 4.3 MMOL/L (3.6-5.0); SODIUM 137 MMOL/L (135-145)
[2020-04-20 09:53] LABS: EOSINOPHILS % (AUTO) 0 % (0-10); MEAN CORPUSCULAR VOLUME 95 fL (80-99)
[2020-04-20 09:55] LABS: BASOPHILS % (AUTO) 1 % (0-10); HEMATOCRIT 25 % (40-54); HEMOGLOBIN 8.2 g/dL (13.3-17.7); LYMPHOCYTES # (AUTO) 0.5 10^3/uL (1.0-4.0); LYMPHOCYTES % (AUTO) 15 % (12-44); MEAN CORPUSCULAR HEMOGLOBIN 32 pg (25-34); MEAN CORPUSCULAR HGB CONC 33 g/dL (32-36); MEAN PLATELET VOLUME 11.2 fL (9.0-12.2); MONOCYTES # (AUTO) 0.7 10^3/uL (0.0-1.0); MONOCYTES % (AUTO) 22 % (0-12); NEUTROPHILS # (AUTO) 1.7 10^3/uL (1.8-7.8); NEUTROPHILS % (AUTO) 55 % (42-75); WHITE BLOOD COUNT 3.1 10^3/uL (4.3-11.0)
[2020-04-20 09:56] LABS: PLATELET COUNT 26 10^3/uL (130-400)
[2020-04-20 10:13] LABS: BUN/CREATININE RATIO 18; CALCIUM 9.1 MG/DL (8.5-10.1); CARBON DIOXIDE 24 MMOL/L (21-32); CHLORIDE 105 MMOL/L (98-107); CREATININE SERUM 0.83 MG/DL (0.60-1.30); GFR ESTIMATED > 60; GLUCOSE 115 MG/DL (70-105); SODIUM 138 MMOL/L (135-145)
[2020-04-24 10:27] LABS: BASOPHILS % (AUTO) 0 % (0-10); EOSINOPHILS % (AUTO) 0 % (0-10); HEMATOCRIT 25 % (40-54); HEMOGLOBIN 8.1 g/dL (13.3-17.7); LYMPHOCYTES # (AUTO) 0.4 10^3/uL (1.0-4.0); LYMPHOCYTES % (AUTO) 24 % (12-44); MEAN CORPUSCULAR HEMOGLOBIN 32 pg (25-34); MEAN CORPUSCULAR HGB CONC 33 g/dL (32-36); MEAN CORPUSCULAR VOLUME 98 fL (80-99); MEAN PLATELET VOLUME 11.2 fL (9.0-12.2); MONOCYTES # (AUTO) 0.6 10^3/uL (0.0-1.0); MONOCYTES % (AUTO) 35 % (0-12); NEUTROPHILS # (AUTO) 0.7 10^3/uL (1.8-7.8); NEUTROPHILS % (AUTO) 40 % (42-75); PLATELET COUNT 45 10^3/uL (130-400); WHITE BLOOD COUNT 1.7 10^3/uL (4.3-11.0)
[2020-04-24 10:46] LABS: ALANINE AMINOTRANSFERASE 19 U/L (0-55); ALBUMIN 3.8 GM/DL (3.2-4.5); ALKALINE PHOSPHATASE 50 U/L (40-136); BILIRUBIN,TOTAL 0.5 MG/DL (0.1-1.0); BUN/CREATININE RATIO 22; CALCIUM 8.8 MG/DL (8.5-10.1); CARBON DIOXIDE 25 MMOL/L (21-32); CHLORIDE 106 MMOL/L (98-107); CREATININE SERUM 0.79 MG/DL (0.60-1.30); GFR ESTIMATED > 60; GLUCOSE 101 MG/DL (70-105); SODIUM 139 MMOL/L (135-145); TOTAL PROTEIN 5.6 GM/DL (6.4-8.2)
[2020-04-27 10:23] LABS: BASOPHILS % (AUTO) 0 % (0-10); EOSINOPHILS % (AUTO) 0 % (0-10); HEMATOCRIT 26 % (40-54); HEMOGLOBIN 8.4 g/dL (13.3-17.7); LYMPHOCYTES # (AUTO) 0.4 10^3/uL (1.0-4.0); LYMPHOCYTES % (AUTO) 11 % (12-44); MEAN CORPUSCULAR HEMOGLOBIN 32 pg (25-34); MEAN CORPUSCULAR HGB CONC 32 g/dL (32-36); MEAN CORPUSCULAR VOLUME 99 fL (80-99); MEAN PLATELET VOLUME 11.9 fL (9.0-12.2); MONOCYTES # (AUTO) 0.9 10^3/uL (0.0-1.0); MONOCYTES % (AUTO) 23 % (0-12); NEUTROPHILS # (AUTO) 2.6 10^3/uL (1.8-7.8); NEUTROPHILS % (AUTO) 65 % (42-75); PLATELET COUNT 69 10^3/uL (130-400); WHITE BLOOD COUNT 4.1 10^3/uL (4.3-11.0)
[2020-04-27 10:43] LABS: BUN/CREATININE RATIO 20; CARBON DIOXIDE 24 MMOL/L (21-32); CHLORIDE 108 MMOL/L (98-107); CREATININE SERUM 0.81 MG/DL (0.60-1.30); GFR ESTIMATED > 60; GLUCOSE 111 MG/DL (70-105); POTASSIUM 4.2 MMOL/L (3.6-5.0); SODIUM 142 MMOL/L (135-145)
[2020-05-01 10:06] LABS: BASOPHILS % (AUTO) 0 % (0-10); EOSINOPHILS % (AUTO) 0 % (0-10); HEMATOCRIT 26 % (40-54); HEMOGLOBIN 8.4 g/dL (13.3-17.7); LYMPHOCYTES # (AUTO) 0.5 X 10^3 (1.0-4.0); LYMPHOCYTES % (AUTO) 18 % (12-44); MEAN CORPUSCULAR HEMOGLOBIN 33 pg (25-34); MEAN CORPUSCULAR HGB CONC 32 g/dL (32-36); MEAN CORPUSCULAR VOLUME 102 fL (80-99); MEAN PLATELET VOLUME 10.1 fL (9.0-12.2); MONOCYTES # (AUTO) 0.7 X 10^3 (0.0-1.0); MONOCYTES % (AUTO) 28 % (0-12); NEUTROPHILS # (AUTO) 1.3 X 10^3 (1.8-7.8); NEUTROPHILS % (AUTO) 53 % (42-75); PLATELET COUNT 104 10^3/uL (130-400); WHITE BLOOD COUNT 2.5 10^3/uL (4.3-11.0)
[2020-05-01 10:24] LABS: BUN/CREATININE RATIO 21; CALCIUM 8.9 MG/DL (8.5-10.1); CARBON DIOXIDE 20 MMOL/L (21-32); CHLORIDE 107 MMOL/L (98-107); CREATININE SERUM 0.85 MG/DL (0.60-1.30); GFR ESTIMATED > 60; GLUCOSE 123 MG/DL (70-105); POTASSIUM 4.4 MMOL/L (3.6-5.0); SODIUM 140 MMOL/L (135-145)
[2020-05-04 10:18] LABS: BASOPHILS % (AUTO) 1 % (0-10); EOSINOPHILS % (AUTO) 0 % (0-10); HEMATOCRIT 25 % (40-54); HEMOGLOBIN 8.1 g/dL (13.3-17.7); LYMPHOCYTES # (AUTO) 0.3 10^3/uL (1.0-4.0); LYMPHOCYTES % (AUTO) 11 % (12-44); MEAN CORPUSCULAR HEMOGLOBIN 34 pg (25-34); MEAN CORPUSCULAR HGB CONC 32 g/dL (32-36); MEAN CORPUSCULAR VOLUME 105 fL (80-99); MEAN PLATELET VOLUME 10.6 fL (9.0-12.2); MONOCYTES # (AUTO) 0.6 10^3/uL (0.0-1.0); MONOCYTES % (AUTO) 24 % (0-12); NEUTROPHILS # (AUTO) 1.7 10^3/uL (1.8-7.8); NEUTROPHILS % (AUTO) 64 % (42-75); PLATELET COUNT 130 10^3/uL (130-400); WHITE BLOOD COUNT 2.6 10^3/uL (4.3-11.0)
[2020-05-04 10:25] LABS: ALANINE AMINOTRANSFERASE 18 U/L (0-55); ALBUMIN 3.8 GM/DL (3.2-4.5); ALKALINE PHOSPHATASE 43 U/L (40-136); BILIRUBIN,TOTAL 0.7 MG/DL (0.1-1.0); BUN/CREATININE RATIO 22; CALCIUM 8.7 MG/DL (8.5-10.1); CARBON DIOXIDE 24 MMOL/L (21-32); CHLORIDE 107 MMOL/L (98-107); CREATININE SERUM 0.83 MG/DL (0.60-1.30); GFR ESTIMATED > 60; GLUCOSE 114 MG/DL (70-105); POTASSIUM 4.4 MMOL/L (3.6-5.0); SODIUM 139 MMOL/L (135-145); TOTAL PROTEIN 5.5 GM/DL (6.4-8.2)
[2020-05-08 10:45] LABS: BASOPHILS % (AUTO) 0 % (0-10); EOSINOPHILS % (AUTO) 0 % (0-10); HEMATOCRIT 26 % (40-54); HEMOGLOBIN 8.3 g/dL (13.3-17.7); LYMPHOCYTES # (AUTO) 0.3 10^3/uL (1.0-4.0); LYMPHOCYTES % (AUTO) 12 % (12-44); MEAN CORPUSCULAR HEMOGLOBIN 34 pg (25-34); MEAN CORPUSCULAR HGB CONC 32 g/dL (32-36); MEAN CORPUSCULAR VOLUME 106 fL (80-99); MEAN PLATELET VOLUME 9.4 fL (9.0-12.2); MONOCYTES # (AUTO) 0.7 10^3/uL (0.0-1.0); MONOCYTES % (AUTO) 29 % (0-12); NEUTROPHILS # (AUTO) 1.4 10^3/uL (1.8-7.8); NEUTROPHILS % (AUTO) 58 % (42-75); PLATELET COUNT 125 10^3/uL (130-400); WHITE BLOOD COUNT 2.3 10^3/uL (4.3-11.0)
[2020-05-08 11:06] LABS: BUN/CREATININE RATIO 25; CALCIUM 8.8 MG/DL (8.5-10.1); CARBON DIOXIDE 24 MMOL/L (21-32); CHLORIDE 107 MMOL/L (98-107); GFR ESTIMATED > 60; GLUCOSE 100 MG/DL (70-105); POTASSIUM 4.3 MMOL/L (3.6-5.0); SODIUM 139 MMOL/L (135-145)
[2020-05-18 10:27] LABS: BASOPHILS % (AUTO) 1 % (0-10); EOSINOPHILS % (AUTO) 1 % (0-10); HEMATOCRIT 29 % (40-54); HEMOGLOBIN 9.5 g/dL (13.3-17.7); LYMPHOCYTES # (AUTO) 0.3 10^3/uL (1.0-4.0); LYMPHOCYTES % (AUTO) 17 % (12-44); MEAN CORPUSCULAR HEMOGLOBIN 36 pg (25-34); MEAN CORPUSCULAR HGB CONC 32 g/dL (32-36); MEAN CORPUSCULAR VOLUME 110 fL (80-99); MEAN PLATELET VOLUME 9.3 fL (9.0-12.2); MONOCYTES # (AUTO) 0.6 10^3/uL (0.0-1.0); MONOCYTES % (AUTO) 27 % (0-12); NEUTROPHILS # (AUTO) 1.1 10^3/uL (1.8-7.8); NEUTROPHILS % (AUTO) 55 % (42-75); PLATELET COUNT 120 10^3/uL (130-400); WHITE BLOOD COUNT 2.1 10^3/uL (4.3-11.0)
[2020-05-18 10:46] LABS: ALANINE AMINOTRANSFERASE 23 U/L (0-55); ALKALINE PHOSPHATASE 41 U/L (40-136); BILIRUBIN,TOTAL 0.9 MG/DL (0.1-1.0); BUN/CREATININE RATIO 21; CARBON DIOXIDE 23 MMOL/L (21-32); CHLORIDE 107 MMOL/L (98-107); CREATININE SERUM 0.84 MG/DL (0.60-1.30); GFR ESTIMATED > 60; GLUCOSE 121 MG/DL (70-105); POTASSIUM 4.5 MMOL/L (3.6-5.0); SODIUM 140 MMOL/L (135-145); TOTAL PROTEIN 5.6 GM/DL (6.4-8.2)
[2020-05-26 10:44] LABS: BASOPHILS % (AUTO) 0 % (0-10); EOSINOPHILS % (AUTO) 1 % (0-10); HEMATOCRIT 29 % (40-54); HEMOGLOBIN 9.3 g/dL (13.3-17.7); LYMPHOCYTES # (AUTO) 0.3 10^3/uL (1.0-4.0); LYMPHOCYTES % (AUTO) 13 % (12-44); MEAN CORPUSCULAR HEMOGLOBIN 37 pg (25-34); MEAN CORPUSCULAR HGB CONC 33 g/dL (32-36); MEAN CORPUSCULAR VOLUME 113 fL (80-99); MEAN PLATELET VOLUME 9.8 fL (9.0-12.2); MONOCYTES # (AUTO) 0.6 10^3/uL (0.0-1.0); MONOCYTES % (AUTO) 29 % (0-12); NEUTROPHILS # (AUTO) 1.1 10^3/uL (1.8-7.8); NEUTROPHILS % (AUTO) 55 % (42-75); PLATELET COUNT 92 10^3/uL (130-400); WHITE BLOOD COUNT 1.9 10^3/uL (4.3-11.0)
[2020-05-26 11:07] LABS: BUN/CREATININE RATIO 27; CARBON DIOXIDE 23 MMOL/L (21-32); CHLORIDE 107 MMOL/L (98-107); CREATININE SERUM 0.79 MG/DL (0.60-1.30); GFR ESTIMATED > 60; GLUCOSE 110 MG/DL (70-105); POTASSIUM 4.4 MMOL/L (3.6-5.0); SODIUM 139 MMOL/L (135-145)
[2020-06-01 10:29] LABS: BASOPHILS % (AUTO) 1 % (0-10); EOSINOPHILS % (AUTO) 2 % (0-10); HEMATOCRIT 29 % (40-54); HEMOGLOBIN 9.3 g/dL (13.3-17.7); LYMPHOCYTES # (AUTO) 0.3 10^3/uL (1.0-4.0); LYMPHOCYTES % (AUTO) 18 % (12-44); MEAN CORPUSCULAR HEMOGLOBIN 36 pg (25-34); MEAN CORPUSCULAR HGB CONC 32 g/dL (32-36); MEAN CORPUSCULAR VOLUME 112 fL (80-99); MEAN PLATELET VOLUME 10.4 fL (9.0-12.2); MONOCYTES # (AUTO) 0.4 10^3/uL (0.0-1.0); MONOCYTES % (AUTO) 29 % (0-12); NEUTROPHILS # (AUTO) 0.7 10^3/uL (1.8-7.8); NEUTROPHILS % (AUTO) 50 % (42-75); PLATELET COUNT 69 10^3/uL (130-400)
[2020-06-01 10:35] LABS: WHITE BLOOD COUNT 1.4 10^3/uL (4.3-11.0)
[2020-06-01 10:47] LABS: BUN/CREATININE RATIO 26; CALCIUM 9.1 MG/DL (8.5-10.1); CARBON DIOXIDE 23 MMOL/L (21-32); CHLORIDE 106 MMOL/L (98-107); CREATININE SERUM 0.82 MG/DL (0.60-1.30); GFR ESTIMATED > 60; GLUCOSE 118 MG/DL (70-105); POTASSIUM 4.5 MMOL/L (3.6-5.0); SODIUM 139 MMOL/L (135-145)
[2020-06-08 10:28] LABS: BASOPHILS % (AUTO) 0 % (0-10); EOSINOPHILS % (AUTO) 1 % (0-10); HEMATOCRIT 28 % (40-54); LYMPHOCYTES # (AUTO) 0.2 10^3/uL (1.0-4.0); LYMPHOCYTES % (AUTO) 14 % (12-44); MEAN CORPUSCULAR HEMOGLOBIN 36 pg (25-34); MEAN CORPUSCULAR HGB CONC 33 g/dL (32-36); MEAN CORPUSCULAR VOLUME 111 fL (80-99); MEAN PLATELET VOLUME 11.1 fL (9.0-12.2); MONOCYTES # (AUTO) 0.5 10^3/uL (0.0-1.0); MONOCYTES % (AUTO) 35 % (0-12); NEUTROPHILS # (AUTO) 0.7 10^3/uL (1.8-7.8); NEUTROPHILS % (AUTO) 50 % (42-75); PLATELET COUNT 56 10^3/uL (130-400)
[2020-06-08 10:32] LABS: WHITE BLOOD COUNT 1.4 10^3/uL (4.3-11.0)
[2020-06-08 10:49] LABS: BUN/CREATININE RATIO 25; CALCIUM 9.1 MG/DL (8.5-10.1); CARBON DIOXIDE 23 MMOL/L (21-32); CHLORIDE 107 MMOL/L (98-107); CREATININE SERUM 0.83 MG/DL (0.60-1.30); GFR ESTIMATED > 60; GLUCOSE 100 MG/DL (70-105); POTASSIUM 4.4 MMOL/L (3.6-5.0); SODIUM 138 MMOL/L (135-145)
[2020-06-15 10:13] LABS: BASOPHILS % (AUTO) 0 % (0-10); EOSINOPHILS % (AUTO) 0 % (0-10); HEMATOCRIT 28 % (40-54); LYMPHOCYTES # (AUTO) 0.2 10^3/uL (1.0-4.0); LYMPHOCYTES % (AUTO) 16 % (12-44); MEAN CORPUSCULAR HEMOGLOBIN 35 pg (25-34); MEAN CORPUSCULAR HGB CONC 32 g/dL (32-36); MEAN CORPUSCULAR VOLUME 109 fL (80-99); MEAN PLATELET VOLUME 10.7 fL (9.0-12.2); MONOCYTES # (AUTO) 0.5 10^3/uL (0.0-1.0); MONOCYTES % (AUTO) 52 % (0-12); NEUTROPHILS # (AUTO) 0.3 10^3/uL (1.8-7.8); NEUTROPHILS % (AUTO) 27 % (42-75); PLATELET COUNT 46 10^3/uL (130-400)
[2020-06-15 10:15] LABS: WHITE BLOOD COUNT 0.9 10^3/uL (4.3-11.0)
[2020-06-19 09:53] LABS: BASOPHILS % (AUTO) 1 % (0-10); EOSINOPHILS % (AUTO) 0 % (0-10); HEMATOCRIT 28 % (40-54); HEMOGLOBIN 9.1 g/dL (13.3-17.7); LYMPHOCYTES # (AUTO) 0.2 10^3/uL (1.0-4.0); LYMPHOCYTES % (AUTO) 14 % (12-44); MEAN CORPUSCULAR HEMOGLOBIN 35 pg (25-34); MEAN CORPUSCULAR HGB CONC 32 g/dL (32-36); MEAN CORPUSCULAR VOLUME 107 fL (80-99); MEAN PLATELET VOLUME 11.8 fL (9.0-12.2); MONOCYTES # (AUTO) 0.4 10^3/uL (0.0-1.0); MONOCYTES % (AUTO) 24 % (0-12); NEUTROPHILS # (AUTO) 1.1 10^3/uL (1.8-7.8); NEUTROPHILS % (AUTO) 62 % (42-75); PLATELET COUNT 47 10^3/uL (130-400); WHITE BLOOD COUNT 1.8 10^3/uL (4.3-11.0)
[2020-06-22 11:21] LABS: BASOPHILS % (AUTO) 1 % (0-10); EOSINOPHILS % (AUTO) 0 % (0-10); HEMATOCRIT 27 % (40-54); HEMOGLOBIN 8.8 g/dL (13.3-17.7); LYMPHOCYTES # (AUTO) 0.1 10^3/uL (1.0-4.0); LYMPHOCYTES % (AUTO) 11 % (12-44); MEAN CORPUSCULAR HEMOGLOBIN 35 pg (25-34); MEAN CORPUSCULAR HGB CONC 33 g/dL (32-36); MEAN CORPUSCULAR VOLUME 107 fL (80-99); MEAN PLATELET VOLUME 12.3 fL (9.0-12.2); MONOCYTES # (AUTO) 0.4 10^3/uL (0.0-1.0); MONOCYTES % (AUTO) 32 % (0-12); NEUTROPHILS # (AUTO) 0.7 10^3/uL (1.8-7.8); NEUTROPHILS % (AUTO) 57 % (42-75)
[2020-06-22 11:24] LABS: WHITE BLOOD COUNT 1.3 10^3/uL (4.3-11.0)
[2020-06-22 11:25] LABS: PLATELET COUNT 36 10^3/uL (130-400)
[2020-06-26 10:04] LABS: BASOPHILS % (AUTO) 0 % (0-10); EOSINOPHILS % (AUTO) 1 % (0-10); HEMATOCRIT 26 % (40-54); HEMOGLOBIN 8.4 g/dL (13.3-17.7); LYMPHOCYTES # (AUTO) 0.2 10^3/uL (1.0-4.0); LYMPHOCYTES % (AUTO) 23 % (12-44); MEAN CORPUSCULAR HEMOGLOBIN 34 pg (25-34); MEAN CORPUSCULAR HGB CONC 32 g/dL (32-36); MEAN CORPUSCULAR VOLUME 106 fL (80-99); MEAN PLATELET VOLUME 12.1 fL (9.0-12.2); MONOCYTES # (AUTO) 0.4 10^3/uL (0.0-1.0); MONOCYTES % (AUTO) 53 % (0-12); NEUTROPHILS # (AUTO) 0.2 10^3/uL (1.8-7.8); NEUTROPHILS % (AUTO) 23 % (42-75); PLATELET COUNT 43 10^3/uL (130-400)
[2020-06-26 10:06] LABS: WHITE BLOOD COUNT 0.8 10^3/uL (4.3-11.0)
[2020-06-29 10:13] LABS: BASOPHILS % (AUTO) 0 % (0-10); EOSINOPHILS % (AUTO) 1 % (0-10); HEMATOCRIT 28 % (40-54); HEMOGLOBIN 8.7 g/dL (13.3-17.7); LYMPHOCYTES # (AUTO) 0.2 10^3/uL (1.0-4.0); LYMPHOCYTES % (AUTO) 19 % (12-44); MEAN CORPUSCULAR HEMOGLOBIN 33 pg (25-34); MEAN CORPUSCULAR HGB CONC 32 g/dL (32-36); MEAN CORPUSCULAR VOLUME 105 fL (80-99); MEAN PLATELET VOLUME 11.4 fL (9.0-12.2); MONOCYTES # (AUTO) 0.5 10^3/uL (0.0-1.0); MONOCYTES % (AUTO) 61 % (0-12); NEUTROPHILS # (AUTO) 0.2 10^3/uL (1.8-7.8); NEUTROPHILS % (AUTO) 19 % (42-75); PLATELET COUNT 51 10^3/uL (130-400)
[2020-06-29 10:18] LABS: WHITE BLOOD COUNT 0.9 10^3/uL (4.3-11.0)
[2020-07-03 10:00] LABS: BASOPHILS % (AUTO) 0 % (0-10); EOSINOPHILS % (AUTO) 0 % (0-10); HEMATOCRIT 28 % (40-54); HEMOGLOBIN 8.7 g/dL (13.3-17.7); LYMPHOCYTES # (AUTO) 0.2 10^3/uL (1.0-4.0); LYMPHOCYTES % (AUTO) 18 % (12-44); MEAN CORPUSCULAR HEMOGLOBIN 33 pg (25-34); MEAN CORPUSCULAR HGB CONC 32 g/dL (32-36); MEAN CORPUSCULAR VOLUME 105 fL (80-99); MEAN PLATELET VOLUME 11.2 fL (9.0-12.2); MONOCYTES # (AUTO) 0.7 10^3/uL (0.0-1.0); MONOCYTES % (AUTO) 67 % (0-12); NEUTROPHILS # (AUTO) 0.2 10^3/uL (1.8-7.8); NEUTROPHILS % (AUTO) 14 % (42-75); PLATELET COUNT 67 10^3/uL (130-400)
[2020-07-03 10:07] LABS: WHITE BLOOD COUNT 1.1 10^3/uL (4.3-11.0)
[2020-07-03 10:36] LABS: ALANINE AMINOTRANSFERASE 18 U/L (0-55); ALBUMIN 3.7 GM/DL (3.2-4.5); ALKALINE PHOSPHATASE 79 U/L (40-136); BILIRUBIN,TOTAL 0.5 MG/DL (0.1-1.0); BUN/CREATININE RATIO 24; CALCIUM 9.3 MG/DL (8.5-10.1); CARBON DIOXIDE 25 MMOL/L (21-32); CHLORIDE 103 MMOL/L (98-107); CREATININE SERUM 0.83 MG/DL (0.60-1.30); GFR ESTIMATED > 60; GLUCOSE 105 MG/DL (70-105); POTASSIUM 4.4 MMOL/L (3.6-5.0); SODIUM 136 MMOL/L (135-145); TOTAL PROTEIN 6.6 GM/DL (6.4-8.2)
[~2020-07-12] VITALS: Ht 180.3 cm; Wt 75.3 kg
[~2020-07-12 08:54] MED LIST changes: +ACETAMINOPHEN 500 MG TAB (TYLENOL) CANCER CTR ONE; -CYCLOPHOSPHAMIDE IV SCH; +FILGRASTIM 480 MCG/1.6 ML VIAL CANCER CENTER SQ PRN; -FOSAPREPITANT (CANCER CENTER) 150 MG in NS (IVPB) CANCER CENTER ONLY 150 ML IV SCH; +NS IV 500 ML (CANCER CENTER) 500 ML ONE; -NS IV SCH; -PEGFILGRASTIM 6 MG/0.6 ML ONPRO KIT SQ SCH; -VINCRISTINE SULFATE IV SCH; -[UNRECOGNIZED DRUG - OTHER] IV SCH; -diphenhydrAMINE 25 MG TAB (BENADRYL) CANCER CENTER PO SCH; -riTUXimab 500 MG, riTUXimab FOR IV INJ CONC 200 MG in NS (IVPB) CANCER CENTER ONLY 150 ML IV SCH; -vinCRIStine SULFATE 2 MG in NS (IVPB) CANCER CENTER 50 ML IV SCH
[2020-07-12 09:12] LABS: BASOPHILS % (AUTO) 0 % (0-10); EOSINOPHILS % (AUTO) 0 % (0-10); HEMATOCRIT 25 % (40-54); HEMOGLOBIN 7.7 g/dL (13.3-17.7); LYMPHOCYTES # (AUTO) 0.3 10^3/uL (1.0-4.0); LYMPHOCYTES % (AUTO) 4 % (12-44); MEAN CORPUSCULAR HEMOGLOBIN 32 pg (25-34); MEAN CORPUSCULAR HGB CONC 31 g/dL (32-36); MEAN CORPUSCULAR VOLUME 104 fL (80-99); MEAN PLATELET VOLUME 10.9 fL (9.0-12.2); MONOCYTES # (AUTO) 0.9 10^3/uL (0.0-1.0); MONOCYTES % (AUTO) 13 % (0-12); NEUTROPHILS # (AUTO) 6.2 10^3/uL (1.8-7.8); NEUTROPHILS % (AUTO) 83 % (42-75); PLATELET COUNT 134 10^3/uL (130-400); WHITE BLOOD COUNT 7.5 10^3/uL (4.3-11.0)
[2020-07-12 09:27] LABS: BUN/CREATININE RATIO 23; CALCIUM 9.1 MG/DL (8.5-10.1); CARBON DIOXIDE 22 MMOL/L (21-32); CHLORIDE 103 MMOL/L (98-107); CREATININE SERUM 0.78 MG/DL (0.60-1.30); GFR ESTIMATED > 60; GLUCOSE 123 MG/DL (70-105); POTASSIUM 4.1 MMOL/L (3.6-5.0); SODIUM 136 MMOL/L (135-145)
== END 2020-07-16 | disposition home or self-care (01) ==
LOC: ONC 08:54
PROVIDERS: ATTEND Internal Medicine Hematology & Oncology
DX: C83.38 Diffuse large B-cell lymphoma, lymph nodes of multiple sites (principal); D61.818 Other pancytopenia; J90 Pleural effusion, not elsewhere classified; E78.2 Mixed hyperlipidemia; Z92.21 Personal history of antineoplastic chemotherapy
CPT/HCPCS: 80053; 83615; 85025; 86850; 86900; 86901; 86920; G0463; 36591; 80048; 96372; 96375; 96413; 96415; 99213

== ENCOUNTER 2020-07-28 16:22 | Emergency (ER) | payer MEDICARE ==
[~2020-07-28] VITALS: Ht 180.3 cm; Wt 68.3 kg
[~2020-07-28 16:22] MED LIST changes: -ACETAMINOPHEN 325 MG TAB (TYLENOL) CANCER CTR PO PRN; -ACETAMINOPHEN 500 MG TAB (TYLENOL) CANCER CTR ONE; -FILGRASTIM 480 MCG/1.6 ML VIAL CANCER CENTER SQ PRN; -NS IV 1000 ML (CANCER CTR) IV SCH; -NS IV 500 ML (CANCER CENTER) 500 ML ONE; -RITUXIMAB-ABBS 500 MG, RITUXIMAB-ABBS 200 MG in NS (IVPB) CANCER CENTER ONLY 150 ML IV SCH; -diphenhydrAMINE 25 MG TAB (BENADRYL) CANCER CENTER PO ONE; -diphenhydrAMINE 50 MG/ML INJ (CANCER CENTER) IV PRN
[2020-07-28 17:25] LABS: BASOPHILS % (AUTO) 0 % (0-10); EOSINOPHILS % (AUTO) 1 % (0-10); HEMATOCRIT 23 % (40-54); LYMPHOCYTES # (AUTO) 0.2 10^3/uL (1.0-4.0); LYMPHOCYTES % (AUTO) 5 % (12-44); MEAN CORPUSCULAR HEMOGLOBIN 29 pg (25-34); MEAN CORPUSCULAR HGB CONC 30 g/dL (32-36); MEAN CORPUSCULAR VOLUME 99 fL (80-99); MEAN PLATELET VOLUME 11.8 fL (9.0-12.2); MONOCYTES # (AUTO) 0.7 10^3/uL (0.0-1.0); MONOCYTES % (AUTO) 18 % (0-12); NEUTROPHILS # (AUTO) 2.9 10^3/uL (1.8-7.8); NEUTROPHILS % (AUTO) 76 % (42-75); PLATELET COUNT 157 10^3/uL (130-400); WHITE BLOOD COUNT 3.8 10^3/uL (4.3-11.0)
[2020-07-28 17:26] LABS: HEMOGLOBIN 6.8 g/dL (13.3-17.7)
[2020-07-28 17:34] LABS: BUN/CREATININE RATIO 18; CALCIUM 8.9 MG/DL (8.5-10.1); CARBON DIOXIDE 23 MMOL/L (21-32); CHLORIDE 99 MMOL/L (98-107); CREATININE SERUM 0.78 MG/DL (0.60-1.30); GFR ESTIMATED > 60; GLUCOSE 95 MG/DL (70-105); POTASSIUM 3.8 MMOL/L (3.6-5.0); SODIUM 134 MMOL/L (135-145)
--- NOTE | 2020-07-28 17:41 | ED General ---
General Chief Complaint: Respiratory Problems Stated Complaint: SOB History of Present Illness Date Seen by Provider: Jul 28, 2020 Time Seen by Provider: 17:36 Initial Comments Patient is a 70 btco-xxi-lvdi who presents to the emergency department with chief complaint of increased shortness of breath. 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 Gonzalez for treatment. He states he usually experiences dyspnea on exertion but this worsened starting yesterday. He states that this is exacerbating the chronic pain in his left lower chest and abdomen whenever he t akes a deep breath. He denies chest pain. He states he received one unit of blood on Friday, after his Hgb was checked to be 6.0. He states he also receives weekly infusions of his chemotherapy on Friday. He states he had 2600ccs of fluid drained from his left lung in December 2019. Patient is fully vaccinated for COVID, and received his second dose for his COVID vaccine 1.5 weeks ago. He has no sick contacts, and his is also fully vaccinated. Denies fever, chills, or GI symptoms. All other review of systems reviewed and negative except stated above. Timing/Duration: 1-2 Days Severity: Mild Associated Systoms: No Chest Pain, No Fever/Chills, No Nausea/Vomiting; Shortness of Air (dyspnea on exertion, worsened in last 24 hours), Weakness (chronic fatigue) (NOEMÍ VASQUEZ MED STUDENT) Allergies and Home Medications Allergies Coded Allergies: Anseips-Qak-Ypy Reductase Inhibitor (Verified Allergy, Severe, CAUSES PROBLEMS WITH CONNECTIVE TISSUE, 06/18/19) Home Medications Acetaminophen 500 Mg Tablet, 1-2 TAB PO Q4H PRN for PAIN-MILD (1-4) OR TEMPATURE, (Reported) Aspirin 81 Mg Tab.chew, 81 MG PO DAILY, (Reported) Hydrocodone Bit/Acetaminophen 1 Each Tablet, 1-2 EACH PO Q4H PRN for PAIN- MODERATE Prescribed by: KENIA MADDEN on 03/13/18 0951 [place]-3/Dha/Epa/Fish Oil 1 Each Capsule, 1 EACH PO BID, (Reported) Patient Home Medication List Home Medication List Reviewed: Yes (ARNULFO LARIOS MD) Review of Systems Review of Systems Constitutional: see HPI; No chills, No diaphoresis, No fever; weakness (chronic fatigue) Respiratory: see HPI; No cough; dyspnea on exertion; No orthopnea Cardiovascular: see HPI; No chest pain Gastrointestinal: see HPI, abdominal pain (LUQ and LLQ abdominal pain secondary to lymphoma), constipation (chronic); No nausea, No vomiting Genitourinary: no symptoms reported Hematologic/Lymphatic: Anemia (Hgb 6.0 on 07/26/2020) (NOEMÍ VASQUEZ [employer] STUDENT) All Other Systems Reviewed Negative Unless Noted: Yes (NOEMÍ VASQUEZ STUDENT) Past Aeghjbe-Vbphcu-Ppdjsf Hx Patient Social History Recent Hopitalizations: No (NOEMÍ VASQUEZ [employer] STUDENT) Immunizations Up To Date Tetanus Booster (TDap): Unknown PED Vaccines UTD: No Date of Pneumonia Vaccine: Jan 12, 2018 Date of Influenza Vaccine: Jan 12, 2018 (NOEMÍ VASQUEZ [employer] STUDENT) Seasonal Allergies Seasonal Allergies: No (NOEMÍ VASQUEZ) Past Medical History Surgeries: Yes (SKIN LESION-NOSE) Respiratory: No Currently Using CPAP: No Currently Using BIPAP: No Cardiac: Yes High Cholesterol, Palpitations Neurological: No Reproductive Disorders: No Sexually Transmitted Disease: No HIV/AIDS: No Gastrointestinal: Yes (INGUINAL HERNIA) Musculoskeletal: No Endocrine: No Loss of Vision: Bilateral Hearing Impairment: Denies Cancer: No Psychosocial: No Integumentary: No Blood Disorders: No Adverse Reaction/Blood Tranf: No (N/A) (NOEMÍ VASQUEZ [employer] STUDENT) Physical Exam Vital Signs Capillary Refill : (NOEMÍ VASQUEZ [employer] STUDENT) Height, Weight, BMI Height: 5'11.00" Weight: 183lbs. 3.0oz. 83.949383ad; 23.50 BMI Method: General Appearance: No Apparent Distress, WD/WN, Chronically ill Neck: Normal Inspection, Non Tender, Supple; No Lymphadenopathy (L), No Lymphadenopathy (R), No Thyromegaly Respiratory: No Chest Non Tender (mild pleuritic pain in L lower chest with deep breath); Lungs Clear, Normal Breath Sounds, No Accessory Muscle Use, No Respiratory Distress; No Crackles, No Pleural Rub, No Rales, No Rhonci, No Wheezing Cardiovascular: Regular Rate, Rhythm, No Gallop, No Murmur, Normal Peripheral Pulses Gastrointestinal: Normal Bowel Sounds; No Distended, No Guarding, No Hepatomegaly, No Hernia; Mass (two tender palpable masses in epigastric region), Splenomegaly (spleen tender and palpable), Tenderness Extremity: Non Tender, No Calf Tenderness, No Pedal Edema Neurologic/Psychiatric: Alert, Oriented x3 Skin: Warm/Dry, Pallor Lymphatic: No Adenopathy (NOEMÍ VASQUEZ MED STUDENT) Progress/Results/Core Measures Suspected Sepsis SIRS Temperature: Pulse: Respiratory Rate: Laboratory Tests 07/28/20 16:50: White Blood Count 3.8L Blood Pressure / Mean: Laboratory Tests 07/28/20 16:50: Creatinine 0.78, Platelet Count 157 (NOEMÍ VASQUEZ MED STUDENT) Results/Orders Lab Results Laboratory Tests Test 07/28/20 16:50 Range/Units White Blood Count 3.8 L 4.3-11.0 10^3/uL Red Blood Count 2.31 L 4.30-5.52 10^6/uL Hemoglobin 6.8 *L 13.3-17.7 g/dL Hematocrit 23 L 40-54 % Mean Corpuscular Volume 99 80-99 fL Mean Corpuscular Hemoglobin 29 25-34 pg Mean Corpuscular Hemoglobin Concent 30 L 32-36 g/dL Red Cell Distribution Width 18.6 H 10.0-14.5 % Platelet Count 157 130-400 10^3/uL Mean Platelet Volume 11.8 9.0-12.2 fL Immature Granulocyte % (Auto) 1 % Neutrophils (%) (Auto) 76 H 42-75 % Lymphocytes (%) (Auto) 5 L 12-44 % Monocytes (%) (Auto) 18 H 0-12 % Eosinophils (%) (Auto) 1 0-10 % Basophils (%) (Auto) 0 0-10 % Neutrophils # (Auto) 2.9 1.8-7.8 10^3/uL Lymphocytes # (Auto) 0.2 L 1.0-4.0 10^3/uL Monocytes # (Auto) 0.7 0.0-1.0 10^3/uL Eosinophils # (Auto) 0.0 0.0-0.3 10^3/uL Basophils # (Auto) 0.0 0.0-0.1 10^3/uL Immature Granulocyte # (Auto) 0.0 0.0-0.1 10^3/uL Neutrophils % (Manual) 81 % Lymphocytes % (Manual) 13 % Monocytes % (Manual) 6 % Polychromasia MODERATE Anisocytosis MARKED Blood Morphology Comment NA Sodium Level 134 L 135-145 MMOL/L Potassium Level 3.8 3.6-5.0 MMOL/L Chloride Level 99 98-107 MMOL/L Carbon Dioxide Level 23 21-32 MMOL/L Anion Gap 12 5-14 MMOL/L Blood Urea Nitrogen 14 7-18 MG/DL Creatinine 0.78 0.60-1.30 MG/DL Estimat Glomerular Filtration Rate > 60 BUN/Creatinine Ratio 18 Glucose Level 95 70-105 MG/DL Calcium Level 8.9 8.5-10.1 MG/DL (MANISHA TRUJILLO MD) My Orders Orders - MANISHA TRUJILLO MD Ed Iv/Invasive Line Start (07/28/20 17:18) Cbc With Automated Diff (07/28/20 17:18) Type And Screen (07/28/20 17:18) Basic Metabolic Panel (07/28/20 17:18) Chest 1 View, Ap/Pa Only (07/28/20 17:18) Manual Differential (07/28/20 16:50) Red Cells Leukocytes Reduced (07/28/20 17:32) (MANISHA TRUJILLO MD) Vital Signs/I&O Capillary Refill : (NOEMÍ VASQUEZ MED STUDENT) Progress Note : Progress Note Patient received 1 unit of PRBC without complication. See discharge instructions. (ARNULFO LARIOS MD) Departure Impression Primary Impression: Generalized weakness Additional Impressions: Anemia Qualified Codes: D64.9 - Anemia, unspecified B-cell lymphoma Qualified Codes: C85.10 - Unspecified B-cell lymphoma, unspecified site Disposition: 01 HOME, SELF-CARE Condition: Stable Departure-Patient Inst. Decision time for Depature: 18:00 (ARNULFO LARIOS MD) Referrals: JUANCHO PEREZ MD (PCP/Family) Primary Care Physician Patient Instructions: Blood Transfusion Add. Discharge Instructions: Follow-up with your primary care provider and die holder/oncologist as soon as possible. Call with questions or concerns. Return to the emergency room if you have worsening symptoms or other concerns. All discharge instructions reviewed with patient and/or family. Voiced understanding. I have seen and evaluated the patient, history and physical and medical decision-making done by me I have read and agree with the medical student's documentation (MANISHA TRUJILLO MD) NOEMÍ VASQUEZ MED STUDENT Jul 28, 2020 17:41 MANISHA TRUJILLO MD Jul 28, 2020 17:58 ARNULFO LARIOS MD Jul 28, 2020 19:11
--- NOTE | 2020-07-28 17:47 | Diagnostic Imaging Report ---
INDICATION: Dyspnea. COMPARISON: 12/15/2019. FINDINGS: Right IJ catheter. The SVC is stable. There is no convincing evidence of residual or recurrent pleural fluid on follow-up. The lungs are hyperexpanded but free of focal infiltrate. The heart size and vascularity are within normal limits. IMPRESSION: No acute appearing abnormality. Dictated by: Dictated on workstation # [id number]
[2020-07-28 17:49] LABS: ANISOCYTOSIS MARKED; LYMPHOCYTES % (MANUAL) 13 %; MONOCYTES % (MANUAL) 6 %; NEUTROPHILS % (MANUAL) 81 %; POLYCHROMASIA MODERATE
[2020-07-28] MEDS ORDERED: NS IV 500 ML 500 ML ONE (18:25)
[2020-07-28 18:49] VITALS: BP 117/66
[2020-07-28 19:05] VITALS: BP 122/71
[2020-07-28 21:30] VITALS: BP 125/77
[2020-07-28 21:35] VITALS: BP 125/77
== END 2020-07-28 21:36 | disposition home or self-care (01) ==
LOC: EDUNIT# 16:22 → ER 16:23
DX: C85.10 Unspecified B-cell lymphoma, unspecified site (principal); R53.1 Weakness; D64.9 Anemia, unspecified; Z88.8 Allergy status to other drugs, medicaments and biological substances; Z79.82 Long term (current) use of aspirin
CPT/HCPCS: 71045; 80048; 85007; 85027; 86850; 86900; 86901; 86920; 99284; P9016; 36415

== ENCOUNTER 2020-08-23 10:14 | Outpatient (RCR) | payer MEDICARE ==
[2020-07-19 09:14] LABS: BASOPHILS % (AUTO) 0 % (0-10); EOSINOPHILS % (AUTO) 0 % (0-10); HEMATOCRIT 22 % (40-54); LYMPHOCYTES # (AUTO) 0.2 10^3/uL (1.0-4.0); LYMPHOCYTES % (AUTO) 4 % (12-44); MEAN CORPUSCULAR HEMOGLOBIN 30 pg (25-34); MEAN CORPUSCULAR HGB CONC 30 g/dL (32-36); MEAN CORPUSCULAR VOLUME 101 fL (80-99); MEAN PLATELET VOLUME 11.5 fL (9.0-12.2); MONOCYTES # (AUTO) 0.4 10^3/uL (0.0-1.0); MONOCYTES % (AUTO) 8 % (0-12); NEUTROPHILS # (AUTO) 4.3 10^3/uL (1.8-7.8); NEUTROPHILS % (AUTO) 85 % (42-75); PLATELET COUNT 143 10^3/uL (130-400); WHITE BLOOD COUNT 5.1 10^3/uL (4.3-11.0)
[2020-07-19 09:15] LABS: HEMOGLOBIN 6.5 g/dL (13.3-17.7)
[2020-07-19 09:42] LABS: BUN/CREATININE RATIO 20; CARBON DIOXIDE 23 MMOL/L (21-32); CHLORIDE 101 MMOL/L (98-107); CREATININE SERUM 0.82 MG/DL (0.60-1.30); GFR ESTIMATED > 60; GLUCOSE 151 MG/DL (70-105); POTASSIUM 3.8 MMOL/L (3.6-5.0); SODIUM 135 MMOL/L (135-145)
[2020-07-26 09:08] LABS: BASOPHILS % (AUTO) 0 % (0-10); EOSINOPHILS % (AUTO) 0 % (0-10); LYMPHOCYTES # (AUTO) 0.2 10^3/uL (1.0-4.0); LYMPHOCYTES % (AUTO) 3 % (12-44); MEAN CORPUSCULAR HEMOGLOBIN 30 pg (25-34); MEAN CORPUSCULAR HGB CONC 30 g/dL (32-36); MEAN CORPUSCULAR VOLUME 100 fL (80-99); MEAN PLATELET VOLUME 11.8 fL (9.0-12.2); MONOCYTES # (AUTO) 1.2 10^3/uL (0.0-1.0); MONOCYTES % (AUTO) 20 % (0-12); NEUTROPHILS # (AUTO) 4.5 10^3/uL (1.8-7.8); NEUTROPHILS % (AUTO) 75 % (42-75); PLATELET COUNT 161 10^3/uL (130-400)
[2020-07-26 09:13] LABS: HEMATOCRIT 20 % (40-54)
[2020-07-26 09:26] LABS: BUN/CREATININE RATIO 21; CALCIUM 8.7 MG/DL (8.5-10.1); CARBON DIOXIDE 20 MMOL/L (21-32); CHLORIDE 100 MMOL/L (98-107); GFR ESTIMATED > 60; GLUCOSE 99 MG/DL (70-105); SODIUM 135 MMOL/L (135-145)
[2020-08-02 09:05] LABS: BASOPHILS % (AUTO) 1 % (0-10); EOSINOPHILS # (AUTO) 0.1 10^3/uL (0.0-0.3); EOSINOPHILS % (AUTO) 3 % (0-10); HEMATOCRIT 25 % (40-54); HEMOGLOBIN 7.2 g/dL (13.3-17.7); LYMPHOCYTES # (AUTO) 0.1 10^3/uL (1.0-4.0); LYMPHOCYTES % (AUTO) 6 % (12-44); MEAN CORPUSCULAR HEMOGLOBIN 29 pg (25-34); MEAN CORPUSCULAR HGB CONC 29 g/dL (32-36); MEAN CORPUSCULAR VOLUME 98 fL (80-99); MEAN PLATELET VOLUME 10.9 fL (9.0-12.2); MONOCYTES # (AUTO) 0.6 10^3/uL (0.0-1.0); MONOCYTES % (AUTO) 36 % (0-12); NEUTROPHILS # (AUTO) 0.9 10^3/uL (1.8-7.8); NEUTROPHILS % (AUTO) 53 % (42-75); PLATELET COUNT 184 10^3/uL (130-400); WHITE BLOOD COUNT 1.6 10^3/uL (4.3-11.0)
[2020-08-02 09:36] LABS: ALANINE AMINOTRANSFERASE 20 U/L (0-55); ALBUMIN 3.3 GM/DL (3.2-4.5); ALKALINE PHOSPHATASE 78 U/L (40-136); BILIRUBIN,TOTAL 0.4 MG/DL (0.1-1.0); BUN/CREATININE RATIO 20; CALCIUM 8.6 MG/DL (8.5-10.1); CARBON DIOXIDE 21 MMOL/L (21-32); CHLORIDE 102 MMOL/L (98-107); CREATININE SERUM 0.83 MG/DL (0.60-1.30); GFR ESTIMATED > 60; GLUCOSE 99 MG/DL (70-105); POTASSIUM 4.1 MMOL/L (3.6-5.0); SODIUM 136 MMOL/L (135-145); TOTAL PROTEIN 5.9 GM/DL (6.4-8.2)
[2020-08-09 10:19] LABS: BASOPHILS % (AUTO) 1 % (0-10); EOSINOPHILS % (AUTO) 0 % (0-10); LYMPHOCYTES # (AUTO) 0.1 10^3/uL (1.0-4.0); LYMPHOCYTES % (AUTO) 1 % (12-44); MEAN CORPUSCULAR HEMOGLOBIN 28 pg (25-34); MEAN CORPUSCULAR HGB CONC 29 g/dL (32-36); MEAN CORPUSCULAR VOLUME 96 fL (80-99); MEAN PLATELET VOLUME 10.5 fL (9.0-12.2); MONOCYTES # (AUTO) 1.3 10^3/uL (0.0-1.0); MONOCYTES % (AUTO) 20 % (0-12); NEUTROPHILS # (AUTO) 4.9 10^3/uL (1.8-7.8); NEUTROPHILS % (AUTO) 77 % (42-75); PLATELET COUNT 186 10^3/uL (130-400); WHITE BLOOD COUNT 6.4 10^3/uL (4.3-11.0)
[2020-08-09 10:26] LABS: HEMATOCRIT 20 % (40-54); HEMOGLOBIN 5.9 g/dL (13.3-17.7)
[2020-08-09 10:37] LABS: BUN/CREATININE RATIO 21; CALCIUM 8.6 MG/DL (8.5-10.1); CARBON DIOXIDE 26 MMOL/L (21-32); CHLORIDE 97 MMOL/L (98-107); CREATININE SERUM 0.81 MG/DL (0.60-1.30); GFR ESTIMATED > 60; GLUCOSE 112 MG/DL (70-105); POTASSIUM 4.6 MMOL/L (3.6-5.0); SODIUM 132 MMOL/L (135-145)
[2020-08-16 10:45] LABS: BASOPHILS % (AUTO) 0 % (0-10); EOSINOPHILS # (AUTO) 0.1 10^3/uL (0.0-0.3); EOSINOPHILS % (AUTO) 1 % (0-10); HEMATOCRIT 21 % (40-54); LYMPHOCYTES # (AUTO) 0.1 10^3/uL (1.0-4.0); LYMPHOCYTES % (AUTO) 2 % (12-44); MEAN CORPUSCULAR HEMOGLOBIN 26 pg (25-34); MEAN CORPUSCULAR HGB CONC 29 g/dL (32-36); MEAN CORPUSCULAR VOLUME 93 fL (80-99); MEAN PLATELET VOLUME 11.1 fL (9.0-12.2); MONOCYTES # (AUTO) 0.5 10^3/uL (0.0-1.0); MONOCYTES % (AUTO) 6 % (0-12); NEUTROPHILS # (AUTO) 6.7 10^3/uL (1.8-7.8); NEUTROPHILS % (AUTO) 89 % (42-75); PLATELET COUNT 189 10^3/uL (130-400); WHITE BLOOD COUNT 7.5 10^3/uL (4.3-11.0)
[2020-08-16 11:02] LABS: BUN/CREATININE RATIO 21; CALCIUM 8.3 MG/DL (8.5-10.1); CARBON DIOXIDE 27 MMOL/L (21-32); CHLORIDE 97 MMOL/L (98-107); CREATININE SERUM 0.77 MG/DL (0.60-1.30); GFR ESTIMATED > 60; GLUCOSE 100 MG/DL (70-105); POTASSIUM 4.5 MMOL/L (3.6-5.0); SODIUM 133 MMOL/L (135-145)
[~2020-08-23 10:14] MED LIST changes: +ACETAMINOPHEN 325 MG TAB (TYLENOL) CANCER CTR PO PRN; +NS (IVPB) CANCER CENTER 250 ML ONE; +NS IV 1000 ML (CANCER CTR) IV SCH; +NS IV 500 ML (CANCER CENTER) 500 ML ONE; +RITUXIMAB-ABBS 500 MG, RITUXIMAB-ABBS 200 MG in NS (IVPB) CANCER CENTER ONLY 150 ML IV SCH; +diphenhydrAMINE 25 MG TAB (BENADRYL) CANCER CENTER PO ONE; +diphenhydrAMINE 50 MG/ML INJ (CANCER CENTER) IV PRN
[2020-08-23 10:28] LABS: BASOPHILS % (AUTO) 0 % (0-10); EOSINOPHILS % (AUTO) 1 % (0-10); LYMPHOCYTES # (AUTO) 0.2 10^3/uL (1.0-4.0); LYMPHOCYTES % (AUTO) 2 % (12-44); MEAN CORPUSCULAR HEMOGLOBIN 27 pg (25-34); MEAN CORPUSCULAR HGB CONC 29 g/dL (32-36); MEAN CORPUSCULAR VOLUME 92 fL (80-99); MEAN PLATELET VOLUME 11.5 fL (9.0-12.2); MONOCYTES # (AUTO) 0.9 10^3/uL (0.0-1.0); MONOCYTES % (AUTO) 13 % (0-12); NEUTROPHILS # (AUTO) 5.4 10^3/uL (1.8-7.8); NEUTROPHILS % (AUTO) 75 % (42-75); PLATELET COUNT 162 10^3/uL (130-400); WHITE BLOOD COUNT 7.2 10^3/uL (4.3-11.0)
[2020-08-23 10:33] LABS: HEMATOCRIT 19 % (40-54); HEMOGLOBIN 5.7 g/dL (13.3-17.7)
[2020-08-23 10:44] LABS: BUN/CREATININE RATIO 20; CALCIUM 8.4 MG/DL (8.5-10.1); CARBON DIOXIDE 25 MMOL/L (21-32); CHLORIDE 98 MMOL/L (98-107); CREATININE SERUM 0.82 MG/DL (0.60-1.30); GFR ESTIMATED > 60; GLUCOSE 108 MG/DL (70-105); POTASSIUM 4.2 MMOL/L (3.6-5.0); SODIUM 132 MMOL/L (135-145)
[2020-08-23] MEDS ORDERED: NS (IVPB) CANCER CENTER 250 ML ONE (11:28)
[2020-08-27] MEDS ORDERED: METO50TA7 PO (13:48)
[2020-08-27] MEDS ORDERED: ACYC-112 PO (13:48)
[2020-08-27] MEDS ORDERED: DAPS100T3 PO (13:48)
[2020-08-27] MEDS ORDERED: FLUC100T6 PO (13:48)
[2020-08-27] MEDS ORDERED: LENA15CA PO (13:48)
[2020-08-27] MEDS ORDERED: ACHD5005 PO (13:48)
[2020-08-27] MEDS ORDERED: LEVO750T39 PO (13:48)
[2020-08-28] MEDS ORDERED: ACHD5005 PO (08:57)
[2020-08-30] MEDS ORDERED: FENT1PAT8 TD (07:52)
== END 2020-10-17 | disposition home or self-care (01) ==
LOC: ONC 10:14
PROVIDERS: ATTEND Internal Medicine Hematology & Oncology
DX: Z51.11 Encounter for antineoplastic chemotherapy (principal); C83.38 Diffuse large B-cell lymphoma, lymph nodes of multiple sites; D61.818 Other pancytopenia; E78.2 Mixed hyperlipidemia; D63.0 Anemia in neoplastic disease; I10 Essential (primary) hypertension; I65.29 Occlusion and stenosis of unspecified carotid artery; R00.0 Tachycardia, unspecified; Z79.82 Long term (current) use of aspirin; Z79.899 Other long term (current) drug therapy; Z79.891 Long term (current) use of opiate analgesic
CPT/HCPCS: 36430; 80048; 85025; 86850; 86900; 86901; 86920; 96413; P9016; 36591; 80053; 83615; 96375

== ENCOUNTER 2020-08-27 12:58 | Observation (INO) | payer MEDICARE ==
[~2020-08-27] VITALS: Ht 180 cm; Wt 71.8 kg
[~2020-08-27 12:58] MED LIST changes: -ACETAMINOPHEN 325 MG TAB (TYLENOL) CANCER CTR PO PRN; -NS (IVPB) CANCER CENTER 250 ML ONE; -NS IV 1000 ML (CANCER CTR) IV SCH; -NS IV 500 ML (CANCER CENTER) 500 ML ONE; -RITUXIMAB-ABBS 500 MG, RITUXIMAB-ABBS 200 MG in NS (IVPB) CANCER CENTER ONLY 150 ML IV SCH; -diphenhydrAMINE 25 MG TAB (BENADRYL) CANCER CENTER PO ONE; -diphenhydrAMINE 50 MG/ML INJ (CANCER CENTER) IV PRN
--- NOTE | 2020-08-27 13:31 | ED Abdominal Pain ---
General Chief Complaint: Abdominal/GI Problems Stated Complaint: WEAKNESS,VOMITING, ABD/LEFT SIDE PAIN Source of Information: Patient Exam Limitations: No Limitations History of Present Illness Date Seen by Provider: August 27, 2020 Time Seen by Provider: 13:15 Initial Comments Patient is a 70-year-old male who presents to the emergency department today with a chief complaint of abdominal pain, nausea and vomiting. Patient has a history of non-Hodgkin's lymphoma. He has undergone multiple rounds of various chemotherapies. His most recent chemotherapy regimen was started about a month ago. Patient states over the course of the last 12 to 18 hours he has developed worsening abdominal pain with nausea and vomiting and inability to hold down food or fluids. Patient states that he had a bowel movement early this morning. But he states he cannot pass gas currently and feels bloated. He is currently not nauseated and is asking for ice chips. He feels generally weak. He states that he received a blood transfusion for anemia last Friday, 5 days ago. He states his hemoglobin was 5. No recent fevers, chills, productive cough. No runny nose, sore throat or congestion. No problems with urination. No black or bloody stools. No diarrheal stools. All other review of systems reviewed and negative except as stated above. Timing/Duration: 12-24 Hours Severity/Quality: Moderate, Aching Radiation: No Radiation Activities at Onset: None Associated Symptoms: Nausea/Vomiting, Swelling/Mass in Abdomen Allergies and Home Medications Allergies Coded Allergies: Tlvoszd-Jtw-Dds Reductase Inhibitor (Verified Allergy, Severe, CAUSES PROBLEMS WITH CONNECTIVE TISSUE, 06/18/19) Home Medications Acetaminophen 500 Mg Tablet, 1-2 TAB PO Q4H PRN for PAIN-MILD (1-4) OR TEMPATURE, (Reported) Aspirin 81 Mg Tab.chew, 81 MG PO DAILY, (Reported) Hydrocodone Bit/Acetaminophen 1 Each Tablet, 1-2 EACH PO Q4H PRN for PAIN- MODERATE Prescribed by: KENIA MADDEN on 03/13/18 0951 Hydrocodone/Acetaminophen 1 Each Tablet, 1 TAB PO Q4H PRN for PAIN-MODERATE (5- 7), (Reported) Last Action: New Order Metoprolol Succinate 50 Mg Tab.er.24h, 50 MG PO DAILY, (Reported) Last Action: New Order [place]-3/Dha/Epa/Fish Oil 1 Each Capsule, 1 EACH PO BID, (Reported) Patient Home Medication List Home Medication List Reviewed: Yes Review of Systems Review of Systems Constitutional: see HPI EENTM: No Symptoms Reported Respiratory: No Symptoms Reported Cardiovascular: No Symptoms Reported Gastrointestinal: Abdomen Distended, Abdominal Pain Genitourinary: No Symptoms Reported Musculoskeletal: no symptoms reported Skin: no symptoms reported Psychiatric/Neurological: Depressed, Weakness Past Fphpwwz-Pfwqsn-Hachmi Hx Patient Social History Recent Hopitalizations: No Immunizations Up To Date Tetanus Booster (TDap): Unknown PED Vaccines UTD: No Date of Pneumonia Vaccine: Jan 12, 2018 Date of Influenza Vaccine: Jan 12, 2018 Seasonal Allergies Seasonal Allergies: No Past Medical History Surgeries: Yes (SKIN LESION-NOSE) Respiratory: No Currently Using CPAP: No Currently Using BIPAP: No Cardiac: Yes High Cholesterol, Palpitations Neurological: No Reproductive Disorders: No Sexually Transmitted Disease: No HIV/AIDS: No Gastrointestinal: Yes (INGUINAL HERNIA) Musculoskeletal: No Endocrine: No Loss of Vision: Bilateral Hearing Impairment: Denies Cancer: No Psychosocial: No Integumentary: No Blood Disorders: No Adverse Reaction/Blood Tranf: No (N/A) Physical Exam Vital Signs Vital Signs - First Documented 08/27/20 13:28 Temp 36.7 Pulse 109 Resp 26 B/P (MAP) 134/77 (96) Pulse Ox 94 Capillary Refill : Height/Weight/BMI Height: 5'11.00" Weight: 183lbs. 3.0oz. 83.493013xn; 21.00 BMI Method: General Appearance: no apparent distress, cachetic HEENT: pale conjunctivae (R), pale conjunctivae (L) Respiratory: lungs clear, normal breath sounds, no respiratory distress, no accessory muscle use Cardiovascular: regular rate, rhythm, tachycardia Gastrointestinal: tenderness (Diffuse abdominal wall tenderness with palpable masses in the anterior abdomen consistent with his lymphoma) Neurologic/Psychiatric: alert, normal mood/affect, oriented x 3 Skin: warm/dry, pallor Progress/Results/Core Measures Results/Orders Lab Results Laboratory Tests Test 08/27/20 13:23 Range/Units White Blood Count 3.3 L 4.3-11.0 10^3/uL Red Blood Count 2.59 L 4.30-5.52 10^6/uL Hemoglobin 7.0 L 13.3-17.7 g/dL Hematocrit 24 L 40-54 % Mean Corpuscular Volume 92 80-99 fL Mean Corpuscular Hemoglobin 27 25-34 pg Mean Corpuscular Hemoglobin Concent 29 L 32-36 g/dL Red Cell Distribution Width 21.6 H 10.0-14.5 % Platelet Count 177 130-400 10^3/uL Mean Platelet Volume 11.6 9.0-12.2 fL Immature Granulocyte % (Auto) 18 % Neutrophils (%) (Auto) 59 42-75 % Lymphocytes (%) (Auto) 4 L 12-44 % Monocytes (%) (Auto) 17 H 0-12 % Eosinophils (%) (Auto) 2 0-10 % Basophils (%) (Auto) 0 0-10 % Neutrophils # (Auto) 2.0 1.8-7.8 10^3/uL Lymphocytes # (Auto) 0.1 L 1.0-4.0 10^3/uL Monocytes # (Auto) 0.6 0.0-1.0 10^3/uL Eosinophils # (Auto) 0.1 0.0-0.3 10^3/uL Basophils # (Auto) 0.0 0.0-0.1 10^3/uL Immature Granulocyte # (Auto) 0.6 H 0.0-0.1 10^3/uL Neutrophils % (Manual) 61 % Lymphocytes % (Manual) 8 % Monocytes % (Manual) 13 % Eosinophils % (Manual) 2 % Basophils % (Manual) 0 % Metamyelocytes % 3 % Myelocytes % 1 % Band Neutrophils 12 % Polychromasia MODERATE Hypochromasia MARKED Anisocytosis MARKED Target Cells SLIGHT Sodium Level 135 135-145 MMOL/L Potassium Level 4.1 3.6-5.0 MMOL/L Chloride Level 97 L 98-107 MMOL/L Carbon Dioxide Level 21 21-32 MMOL/L Anion Gap 17 H 5-14 MMOL/L Blood Urea Nitrogen 19 H 7-18 MG/DL Creatinine 0.76 0.60-1.30 MG/DL Estimat Glomerular Filtration Rate > 60 BUN/Creatinine Ratio 25 Glucose Level 85 70-105 MG/DL Calcium Level 8.4 L 8.5-10.1 MG/DL Corrected Calcium 9.3 8.5-10.1 MG/DL Total Bilirubin 0.9 0.1-1.0 MG/DL Aspartate Amino Transf (AST/SGOT) 28 5-34 U/L Alanine Aminotransferase (ALT/SGPT) 21 0-55 U/L Alkaline Phosphatase 118 40-136 U/L Total Protein 5.1 L 6.4-8.2 GM/DL Albumin 2.9 L 3.2-4.5 GM/DL My Orders Orders - MANISHA TRUJILLO MD Ed Iv/Invasive Line Start (08/27/20 13:25) Cbc With Automated Diff (08/27/20 13:25) Type And Screen (08/27/20 13:25) Comprehensive Metabolic Panel (08/27/20 13:25) Ns Iv 500 Ml (Sodium Chloride 0.9%) (08/27/20 13:45) Ondansetron Injection (Zofran Injectio (08/27/20 13:45) Fentanyl Inj (Sublimaze Injection) (08/27/20 13:45) Manual Differential (08/27/20 13:23) Acute Abd Series (08/27/20 14:39) Ct Abdomen/Pelvis Wo (08/27/20 15:20) Medications Given in ED Current Medications Medications Dose Ordered Sig/Evy Route Start Time Stop Time Status Last Admin Dose Admin Fentanyl Citrate 25 mcg ONCE ONCE IVP 08/27/20 13:45 08/27/20 13:46 DC 08/27/20 13:40 25 MCG Ondansetron HCl 4 mg ONCE ONCE IVP 08/27/20 13:45 08/27/20 13:46 DC 08/27/20 13:41 4 MG Vital Signs/I&O 08/27/20 13:28 Temp 36.7 Pulse 109 Resp 26 B/P (MAP) 134/77 (96) Pulse Ox 94 Progress Progress Note : Time: 14:46 Progress Note On further discussion with the patient's who is at the bedside she states that the patient's vomitus was feculent/foul-smelling. She was concerned that maybe he had had a bowel movement. She states it was that terrible smelling, she was concerned he might have a bowel obstruction. We will obtain an acute abdominal series prior to disposition. Patient's abdomen is reexamined it is soft. He is mildly tender. He has very diminished bowel sounds throughout but they are present. No high-pitched or tinkling bowel sounds are auscultated. Patient is not currently nauseated and his pain is well-managed. 1749 Long discussion with patient regarding the CT findings. CT abdomen noncontrast shows findings consistent with ileus versus obstruction. He has significant dilatation of the small bowel into the proximal colon. Patient continues to not be able to pass gas or have a bowel movement at this time. His nausea he rates at a "5". He has not vomited since being in the department but feels like he might at any time. Case was discussed with Dr. Newton on for [facility] as well as Dr. Hughes on for general surgery. Recommendations for pain management, nausea control and fluid resuscitation. I did broach the subject of hospice/palliative care and advised the and to have the discussion regarding further treatment. They seemed open to this. They will contact the oncology office t omorrow. He was scheduled to have a round of chemo on Friday. Diagnostic Imaging Diagonstic Imaging: Xray Comments [facility]. [place], [place] NAME: KAVYA KEEN [facility] REC#: [id number] PT STATUS: REG ER : 1950 PHYSICIAN: MANISHA TRUJILLO MD ADMIT DATE: 08/27/20/ER Draft Date of Exam:08/27/20 ACUTE ABD SERIES HISTORY: Abdominal pain and distention and feculent vomiting. COMPARISON: Chest x-ray from 07/28/2020. KUB from 05/25/2019. TECHNIQUE: Frontal view of the chest. Supine and upright frontal views of the abdomen. FINDINGS: Lung volumes are large. There are airspace opacities in the left lung base and the right upper lobe. The right Port-A-Cath tip projects over the mid SVC. The cardiac silhouette is normal in size. There is a small left pleural effusion. There is no pneumothorax. There are distended loops of small bowel with air-fluid levels. No colon distention is seen. No free air is seen. There is heterogeneous material in the left abdomen which may be in the stomach or colon. IMPRESSION: 1. Airspace opacities in the bilateral lungs, may be due to infection/aspiration. 2. Multiple prominent loops of small bowel with air-fluid levels, concerning for obstruction. 3. Heterogeneous density in the left abdomen. This could represent material in the colon or stomach but has an atypical appearance. Consider CT to further evaluate. Dictated on workstation # [id number] Dict: 08/27/20 1505 Trans: 08/27/20 1512 [facility] [id number] Interpreted by: ALANNA BLAKE MD Electronically signed by: [facility]. [place], [place] NAME: KAVYA KEEN [facility] REC#: [id number] PT STATUS: REG ER : 1950 PHYSICIAN: MANISHA TRUJILLO MD ADMIT DATE: 08/27/20/ER Signed Date of Exam:08/27/20 CT ABDOMEN/PELVIS WO PROCEDURE: CT abdomen and pelvis without contrast. TECHNIQUE: Multiple contiguous axial images were obtained through the abdomen and pelvis without the use of intravenous contrast. Auto Exposure Controls were utilized during the CT exam to meet ALARA standards for radiation dose reduction. INDICATION: Feculent vomiting, abdominal pain. COMPARISON: Radiographs from 08/27/2020. FINDINGS: There is marked pleural thickening at the left lung base, with innumerable nodules in the left lung with a few nodules in the right lung. The interventricular septum is visible consistent with anemia. There is a small pericardial effusion. There are multiple distended loops of small bowel throughout the abdomen. No transition point is seen. There is moderate stool in the distal colon. There is a large heterogeneous necrotic mass anterior to the spleen, which appears to originate from the spleen or erode through the spleen, measuring 13.5 x 10.3 cm in size on axial imaging, and 3.8 cm craniocaudal. This could also represent a large abscess. This is in the region of the colon, but the colon cannot be distinguished from this mass. There are prominent loops of small bowel and the ascending and transverse colon is also mildly prominent and fluid-filled with thickened perea. The descending colon demonstrates moderate dense stool. No robert free air is seen. This mass may obstruct or erode through the colon, and the fundus of the stomach, splenic flexure of the colon, and the heterogeneous abscess or necrotic mass are indistinguishable on this noncontrast exam. There are multiple additional necrotic masses in the abdomen which have significantly increased in size since the prior exam. One is located anteriorly measuring 6.6 x 5.9 cm (image 37 series 2). Another is located anterior to the left diaphragm measuring 5.9 x 3.3 cm. Another is located anterior to the pericardium measuring 4.8 x 2.3 cm. There is a large retroperitoneal mass as well (image 38 series 2). No acute osseous abnormality is seen. IMPRESSION: 1. Large heterogeneous mass lesion in the left upper quadrant of the abdomen. This may represent an abscess and/or necrotic mass, but is indistinguishable from the fundus of the stomach, the anterior spleen and the splenic flexure of the colon on this noncontrast CT. This could result in obstruction or erosion of the colon. 2. Distention throughout the small bowel and the proximal colon, may be due to ileus or obstruction. 3. Numerous additional masses throughout the abdomen in the lower chest with pleural thickening and pulmonary nodules, consistent with metastatic disease. 4. Anemia. Dictated by: Dictated on workstation # [id number] Dict: 08/27/20 1607 Trans: 08/27/20 1724 [facility] [id number] Interpreted by: ALANNA BLAKE MD Electronically signed by: ALANNA BLAKE MD 08/27/20 1724 Departure Communication (Admissions) Time/Spoke to Admitting Phy: 17:[address] Newton who accepts the patient for admission Time/Spoke to Consulting Phy: 17:[address] Hughes who recommends IV fluids nausea control and pain medications and he will see the patient in consult. Impression Primary Impression: Chronic disease anemia Additional Impressions: Abdominal pain Qualified Codes: R10.84 - Generalized abdominal pain Ileus Non Hodgkin's lymphoma Qualified Codes: C85.90 - Non-Hodgkin lymphoma, unspecified, unspecified site Disposition: ADMITTED INPATIENT Condition: Stable Admissions Decision to Admit Reason: Admit from ER (General) Decision to Admit/Date: August 27, 2020 Time/Decision to Admit Time: 17:49 Departure-Patient Inst. Referrals: JUANCHO PEREZ MD (PCP/Family) Primary Care Physician MANISHA TRUJILLO MD August 27, 2020 13:31
[2020-08-27 13:38] LABS: BASOPHILS % (AUTO) 0 % (0-10); EOSINOPHILS # (AUTO) 0.1 10^3/uL (0.0-0.3); EOSINOPHILS % (AUTO) 2 % (0-10); HEMATOCRIT 24 % (40-54); LYMPHOCYTES # (AUTO) 0.1 10^3/uL (1.0-4.0); LYMPHOCYTES % (AUTO) 4 % (12-44); MEAN CORPUSCULAR HEMOGLOBIN 27 pg (25-34); MEAN CORPUSCULAR HGB CONC 29 g/dL (32-36); MEAN CORPUSCULAR VOLUME 92 fL (80-99); MEAN PLATELET VOLUME 11.6 fL (9.0-12.2); MONOCYTES # (AUTO) 0.6 10^3/uL (0.0-1.0); MONOCYTES % (AUTO) 17 % (0-12); NEUTROPHILS % (AUTO) 59 % (42-75); PLATELET COUNT 177 10^3/uL (130-400); WHITE BLOOD COUNT 3.3 10^3/uL (4.3-11.0)
[2020-08-27] MEDS ORDERED: NS IV 500 ML 500 ML IV SCH (13:45)
[2020-08-27] MEDS ORDERED: fentaNYL INJ 100 MCG/2 ML AMP IVP ONE (13:45)
[2020-08-27] MEDS ORDERED: ONDANSETRON 4 MG/2 ML (SDV) Z0FRAN IVP ONE (13:45)
[2020-08-27] MEDS ORDERED: FLUC100T6 PO (13:48)
[2020-08-27] MEDS ORDERED: ACHD5005 PO (13:48)
[2020-08-27] MEDS ORDERED: DAPS100T3 PO (13:48)
[2020-08-27] MEDS ORDERED: LENA15CA PO (13:48)
[2020-08-27] MEDS ORDERED: ACYC-112 PO (13:48)
[2020-08-27] MEDS ORDERED: METO50TA7 PO (13:48)
[2020-08-27] MEDS ORDERED: LEVO750T39 PO (13:48)
[2020-08-27 13:55] LABS: ALBUMIN 2.9 GM/DL (3.2-4.5); CHLORIDE 97 MMOL/L (98-107); POTASSIUM 4.1 MMOL/L (3.6-5.0); SODIUM 135 MMOL/L (135-145)
[2020-08-27 13:56] LABS: CALCIUM 8.4 MG/DL (8.5-10.1)
[2020-08-27 13:57] LABS: ANISOCYTOSIS MARKED; BAND NEUTROPHILS 12 %; BASOPHILS % (MANUAL) 0 %; EOSINOPHILS % (MANUAL) 2 %; GLUCOSE 85 MG/DL (70-105); HYPOCHROMASIA MARKED; LYMPHOCYTES % (MANUAL) 8 %; METAMYELOCYTES % 3 %; MONOCYTES % (MANUAL) 13 %; MYELOCYTES % 1 %; NEUTROPHILS % (MANUAL) 61 %; POLYCHROMASIA MODERATE; TOTAL PROTEIN 5.1 GM/DL (6.4-8.2)
[2020-08-27 13:58] LABS: CARBON DIOXIDE 21 MMOL/L (21-32); TARGET CELLS SLIGHT
[2020-08-27 13:59] LABS: BILIRUBIN,TOTAL 0.9 MG/DL (0.1-1.0)
[2020-08-27 14:01] LABS: ALKALINE PHOSPHATASE 118 U/L (40-136); CREATININE SERUM 0.76 MG/DL (0.60-1.30); GFR ESTIMATED > 60
[2020-08-27 14:02] LABS: BUN/CREATININE RATIO 25
[2020-08-27 14:04] LABS: ALANINE AMINOTRANSFERASE 21 U/L (0-55)
--- NOTE | 2020-08-27 15:13 | Diagnostic Imaging Report ---
HISTORY: Abdominal pain and distention and feculent vomiting. COMPARISON: Chest x-ray from 07/28/2020. KUB from 05/25/2019. TECHNIQUE: Frontal view of the chest. Supine and upright frontal views of the abdomen. FINDINGS: Lung volumes are large. There are airspace opacities in the left lung base and the right upper lobe. The right Port-A-Cath tip projects over the mid SVC. The cardiac silhouette is normal in size. There is a small left pleural effusion. There is no pneumothorax. There are distended loops of small bowel with air-fluid levels. No colon distention is seen. No free air is seen. There is heterogeneous material in the left abdomen which may be in the stomach or colon. IMPRESSION: 1. Airspace opacities in the bilateral lungs, may be due to infection/aspiration. 2. Multiple prominent loops of small bowel with air-fluid levels, concerning for obstruction. 3. Heterogeneous density in the left abdomen. This could represent material in the colon or stomach but has an atypical appearance. Consider CT to further evaluate. Dictated by: Dictated on workstation # [id number]
--- NOTE | 2020-08-27 16:39 | Diagnostic Imaging Report ---
PROCEDURE: CT abdomen and pelvis without contrast. TECHNIQUE: Multiple contiguous axial images were obtained through the abdomen and pelvis without the use of intravenous contrast. Auto Exposure Controls were utilized during the CT exam to meet ALARA standards for radiation dose reduction. INDICATION: Feculent vomiting, abdominal pain. COMPARISON: Radiographs from 08/27/2020. FINDINGS: There is marked pleural thickening at the left lung base, with innumerable nodules in the left lung with a few nodules in the right lung. The interventricular septum is visible consistent with anemia. There is a small pericardial effusion. There are multiple distended loops of small bowel throughout the abdomen. No transition point is seen. There is moderate stool in the distal colon. There is a large heterogeneous necrotic mass anterior to the spleen, which appears to originate from the spleen or erode through the spleen, measuring 13.5 x 10.3 cm in size on axial imaging, and 3.8 cm craniocaudal. This could also represent a large abscess. This is in the region of the colon, but the colon cannot be distinguished from this mass. There are prominent loops of small bowel and the ascending and transverse colon is also mildly prominent and fluid-filled with thickened perea. The descending colon demonstrates moderate dense stool. No robert free air is seen. This mass may obstruct or erode through the colon, and the fundus of the stomach, splenic flexure of the colon, and the heterogeneous abscess or necrotic mass are indistinguishable on this noncontrast exam. There are multiple additional necrotic masses in the abdomen which have significantly increased in size since the prior exam. One is located anteriorly measuring 6.6 x 5.9 cm (image 37 series 2). Another is located anterior to the left diaphragm measuring 5.9 x 3.3 cm. Another is located anterior to the pericardium measuring 4.8 x 2.3 cm. There is a large retroperitoneal mass as well (image 38 series 2). No acute osseous abnormality is seen. IMPRESSION: 1. Large heterogeneous mass lesion in the left upper quadrant of the abdomen. This may represent an abscess and/or necrotic mass, but is indistinguishable from the fundus of the stomach, the anterior spleen and the splenic flexure of the colon on this noncontrast CT. This could result in obstruction or erosion of the colon. 2. Distention throughout the small bowel and the proximal colon, may be due to ileus or obstruction. 3. Numerous additional masses throughout the abdomen in the lower chest with pleural thickening and pulmonary nodules, consistent with metastatic disease. 4. Anemia. Dictated by: Dictated on workstation # [id number]
[2020-08-27] MEDS ORDERED: NS IV 1000 ML 1,000 ML ONE (18:34)
[2020-08-27] MEDS: NS IV 1000 ML 1,000 ML IV SCH (18:56)
[2020-08-27 19:00] VITALS: BP 136/76
[2020-08-27 19:45] VITALS: BP 134/77
[2020-08-27] MEDS ORDERED: RT-ALBUTEROL SULF 2.5 MG/3 ML PRE-MIX VIAL INH PRN (20:00)
[2020-08-27] MEDS ORDERED: ONDANSETRON 4 MG/2 ML (SDV) Z0FRAN IVP PRN ×2 (20:15→20:45)
[2020-08-27] MEDS ORDERED: PROMETHAZINE 25 MG (PHENERGAN) TAB PO PRN (20:15)
[2020-08-27] MEDS ORDERED: PROMETHAZINE INJ 25 MG/ML (PHENERGAN) AMP IVP PRN (20:15)
[2020-08-27] MEDS ORDERED: HYDROcodone/APAP 5 MG/325 MG (LORTAB) TAB PO PRN (20:45)
[2020-08-27] MEDS ORDERED: MELATONIN 3 MG TABLET PO PRN (20:45)
[2020-08-27] MEDS ORDERED: CALCIUM CARBONATE 500 MG (TUMS) TAB.CHEW PO PRN (20:45)
[2020-08-27] MEDS ORDERED: ACETAMINOPHEN 500 MG TAB (TYLENOL) PO PRN (20:45)
[2020-08-27] MEDS ORDERED: ALPRAZolam 0.25 MG (XANAX) TAB PO PRN (20:45)
[2020-08-27] MEDS ORDERED: LOPERAMIDE 2 MG (IMODIUM) TABLET PO PRN (20:45)
[2020-08-27] MEDS ORDERED: diphenhydrAMINE 25 MG TAB (BENADRYL) PO PRN (20:45)
[2020-08-27] MEDS ORDERED: DOCUSATE SODIUM 100 MG (COLACE) CAP PO PRN (20:45)
[2020-08-27] MEDS: SENNA W/DOCUSATE (SENOKOT S) TABLET PO SCH (21:09)
[2020-08-27 23:00] VITALS: BP 110/58
[2020-08-28] MEDS: NS IV 1000 ML 1,000 ML IV SCH ×3 (03:05→19:26)
[2020-08-28 03:40] VITALS: BP 110/57
[2020-08-28 07:26] VITALS: BP 122/65
[2020-08-28] MEDS: SENNA W/DOCUSATE (SENOKOT S) TABLET PO SCH ×2 (08:57→20:49)
[2020-08-28] MEDS ORDERED: ACHD5005 PO (08:57)
[2020-08-28] MEDS ORDERED: meTOproloL SUCCINATE 50 MG (TOPROL XL) TAB PO SCH (09:00)
[2020-08-28 09:25] LABS: BASOPHILS % (AUTO) 0 % (0-10); EOSINOPHILS # (AUTO) 0.1 10^3/uL (0.0-0.3); EOSINOPHILS % (AUTO) 6 % (0-10); HEMATOCRIT 24 % (40-54); LYMPHOCYTES # (AUTO) 0.2 10^3/uL (1.0-4.0); LYMPHOCYTES % (AUTO) 7 % (12-44); MEAN CORPUSCULAR HEMOGLOBIN 27 pg (25-34); MEAN CORPUSCULAR HGB CONC 29 g/dL (32-36); MEAN CORPUSCULAR VOLUME 94 fL (80-99); MEAN PLATELET VOLUME 12.1 fL (9.0-12.2); MONOCYTES # (AUTO) 0.5 10^3/uL (0.0-1.0); MONOCYTES % (AUTO) 22 % (0-12); NEUTROPHILS # (AUTO) 1.1 10^3/uL (1.8-7.8); NEUTROPHILS % (AUTO) 51 % (42-75); PLATELET COUNT 180 10^3/uL (130-400); WHITE BLOOD COUNT 2.2 10^3/uL (4.3-11.0)
[2020-08-28 09:29] LABS: HEMOGLOBIN 6.9 g/dL (13.3-17.7)
[2020-08-28 09:36] LABS: CHLORIDE 100 MMOL/L (98-107); POTASSIUM 3.8 MMOL/L (3.6-5.0); SODIUM 137 MMOL/L (135-145)
[2020-08-28 09:37] LABS: CALCIUM 8.1 MG/DL (8.5-10.1); GLUCOSE 75 MG/DL (70-105)
[2020-08-28 09:39] LABS: CARBON DIOXIDE 21 MMOL/L (21-32)
[2020-08-28 09:41] LABS: GFR ESTIMATED > 60
[2020-08-28 09:42] LABS: BUN/CREATININE RATIO 26
[2020-08-28] MEDS: fentaNYL INJ 100 MCG/2 ML AMP IVP PRN ×3 (11:16→21:26)
[2020-08-28 11:40] VITALS: BP 108/67
[2020-08-28 15:40] VITALS: BP 123/65
--- NOTE | 2020-08-28 16:56 | History & Physical ---
HPI History of Present Illness: 70 yo male with non-Hodgkin lymphoma presented to ER due to severe abdominal pain and vomiting apparent fecal material. His provides most of the history, he was diagnosed with lymphoma just over a year ago and has undergone RCHOP and CAR-T treatments and most recently was found to have lesions in brain that prevented him from being in another possible trial. His states that around the end of May/beginning of June the Oncologist at said there were 3 options, the first being aggressive chemo which he did not really feel was an option due to the expected severity of illness associated with the treatment, the second to come back to [place] and use "mild" chemotherapy to see if it wo uld be helpful at all and the third to pursue comfort goals. They decided to continue with chemo here in [place] and follow with Dr. Cross. He has not been feeling well at all and a couple of days ago started to have severe pain with oral intake and then vomited brown, foul smelling vomitus. He is known to have abdominal lymphoma masses, but has not had this problem before. He hasn't had a bowel movement in 2 days. He is still having significant pain, but is often hesitant to take pain medications. Per his , he sometimes can't recall all the details related to his brain involvement and underlying status. They are concerned that his quality of life has significantly deteriorated over the last while. He has also required transfusions at least weekly, and once twice in a week for low hemoglobin. He did have low platelets but that has recovered. Source: patient, family Date seen by provider: August 28, 2020 Time Seen by Provider: 10:00 Attending Physician Paris Montano MD PCP Mark Baldwin MD Consult Date of Admission August 27, 2020 at 17:45 Home Medications Home Medications Reviewed patient Home Medication Reconciliation performed by pharmacy medication reconciliations telecommunication tower technician and/or nursing. Patients Allergies have been reviewed. Allergies Coded Allergies: Bnhgygk-Ggi-Mop Reductase Inhibitor (Verified Allergy, Severe, CAUSES PROBLEMS WITH CONNECTIVE TISSUE, 06/18/19) SUH-Mbqbws-Cwfxzr Hx Patient Social History Smoking Status: Never a Smoker Recent Hopitalizations: No Alcohol Use?: No Have you traveled recently?: No Immunizations Up To Date Tetanus Booster (TDap): Unknown Date of Pneumonia Vaccine: Jan 12, 2018 Date of Influenza Vaccine: Jan 12, 2018 Past Medical History PMHx: Lymphoma HLD Family Medical History Significant Family History: Cancer Review of Systems (CHC) Constitutional: No fever; malaise, weakness, weight loss Respiratory: No cough, No short of breath Gastrointestinal: see HPI Reviewed Test Results Reviewed Test Results Lab Laboratory Tests Test 08/27/20 13:23 08/28/20 09:10 Range/Units White Blood Count 3.3 L 2.2 L 4.3-11.0 10^3/uL Red Blood Count 2.59 L 2.53 L 4.30-5.52 10^6/uL Hemoglobin 7.0 L 6.9 *L 13.3-17.7 g/dL Hematocrit 24 L 24 L 40-54 % Mean Corpuscular Volume 92 94 80-99 fL Mean Corpuscular Hemoglobin 27 27 25-34 pg Mean Corpuscular Hemoglobin Concent 29 L 29 L 32-36 g/dL Red Cell Distribution Width 21.6 H 22.1 H 10.0-14.5 % Platelet Count 177 180 130-400 10^3/uL Mean Platelet Volume 11.6 12.1 9.0-12.2 fL Immature Granulocyte % (Auto) 18 14 % Neutrophils (%) (Auto) 59 51 42-75 % Lymphocytes (%) (Auto) 4 L 7 L 12-44 % Monocytes (%) (Auto) 17 H 22 H 0-12 % Eosinophils (%) (Auto) 2 6 0-10 % Basophils (%) (Auto) 0 0 0-10 % Neutrophils # (Auto) 2.0 1.1 L 1.8-7.8 10^3/uL Lymphocytes # (Auto) 0.1 L 0.2 L 1.0-4.0 10^3/uL Monocytes # (Auto) 0.6 0.5 0.0-1.0 10^3/uL Eosinophils # (Auto) 0.1 0.1 0.0-0.3 10^3/uL Basophils # (Auto) 0.0 0.0 0.0-0.1 10^3/uL Immature Granulocyte # (Auto) 0.6 H 0.3 H 0.0-0.1 10^3/uL Neutrophils % (Manual) 61 % Lymphocytes % (Manual) 8 % Monocytes % (Manual) 13 % Eosinophils % (Manual) 2 % Basophils % (Manual) 0 % Metamyelocytes % 3 % Myelocytes % 1 % Band Neutrophils 12 % Polychromasia MODERATE Hypochromasia MARKED Anisocytosis MARKED Target Cells SLIGHT Sodium Level 135 137 135-145 MMOL/L Potassium Level 4.1 3.8 3.6-5.0 MMOL/L Chloride Level 97 L 100 98-107 MMOL/L Carbon Dioxide Level 21 21 21-32 MMOL/L Anion Gap 17 H 16 H 5-14 MMOL/L Blood Urea Nitrogen 19 H 18 7-18 MG/DL Creatinine 0.76 0.70 0.60-1.30 MG/DL Estimat Glomerular Filtration Rate > 60 > 60 BUN/Creatinine Ratio 25 26 Glucose Level 85 75 70-105 MG/DL Calcium Level 8.4 L 8.1 L 8.5-10.1 MG/DL Corrected Calcium 9.3 8.5-10.1 MG/DL Total Bilirubin 0.9 0.1-1.0 MG/DL Aspartate Amino Transf (AST/SGOT) 28 5-34 U/L Alanine Aminotransferase (ALT/SGPT) 21 0-55 U/L Alkaline Phosphatase 118 40-136 U/L Total Protein 5.1 L 6.4-8.2 GM/DL Albumin 2.9 L 3.2-4.5 GM/DL Radiology CT abd/pelvis 08/27/20 IMPRESSION: 1. Large heterogeneous mass lesion in the left upper quadrant of the abdomen. This may represent an abscess and/or necrotic mass, but is indistinguishable from the fundus of the stomach, the anterior spleen and the splenic flexure of the colon on this noncontrast CT. This could result in obstruction or erosion of the colon. 2. Distention throughout the small bowel and the proximal colon, may be due to ileus or obstruction. 3. Numerous additional masses throughout the abdomen in the lower chest with pleural thickening and pulmonary nodules, consistent with metastatic disease. 4. Anemia. Physical Exam-([facility]C) Physical Exam Vital Signs VS - Last 72 Hours, by Label 08/27/20 08/27/20 08/27/20 08/27/20 13:28 18:23 19:00 19:30 Temp 36.7 36.5 Pulse 109 65 110 Resp 26 18 30 B/P (MAP) 134/77 (96) 112/61 136/76 (96) Pulse Ox 94 96 95 O2 Delivery Room Air Room Air 08/27/20 08/27/20 08/27/20 08/28/20 19:45 20:00 23:00 03:40 Temp 36.7 36.3 36.8 Pulse 109 98 93 Resp 20 20 B/P (MAP) 110/58 (75) 110/57 (74) Pulse Ox 94 92 92 O2 Delivery Room Air Room Air Room Air FiO2 21 08/28/20 08/28/20 08/28/20 08/28/20 07:26 08:59 11:40 14:53 Temp 37.1 37.4 Pulse 105 94 Resp 20 20 B/P (MAP) 122/65 (84) 108/67 (81) Pulse Ox 92 92 O2 Delivery Room Air Room Air Room Air Room Air 08/28/20 15:40 Temp 36.8 Pulse 92 Resp 18 B/P (MAP) 123/65 (84) Pulse Ox 98 O2 Delivery Room Air Capillary Refill : Less Than 3 Seconds General Appearance: no apparent distress, thin Respiratory: lungs clear, normal breath sounds Cardiovascular: regular rate, rhythm, no murmur Gastrointestinal: normal bowel sounds, distended Extremities: pedal edema Neurologic/Psychiatric: alert, normal mood/affect Skin: normal color, warm/dry Assessment/Plan Assessment/Plan Admission Status: Observation (1) Abdominal mass Status: Chronic Assessment & Plan: Multiple abdominal masses, unclear if significantly changed from prior findings from his lymphoma, but at this time there is concern for compressive effect with possible obstruction. Surgery consulted, but suspect surgical intervention will not be recommended given the likely recurrence due to lymphoma failing multiple treatments. IV pain control, Surgery and Oncology consulted. Qualifiers: Qualified Codes: R19.00 - Intra-abdominal and pelvic swelling, mass and lump, unspecified site (2) Bowel obstruction Status: Acute Assessment & Plan: Unclear if true complete obstruction, no further vomiting since admission, but pain is persistent. Discussed the use of NG tube with patient and and that it may provide some symptomatic relief, although given the source of the problem is cancerous, it will not provide a termite treater helper so lution. After discussion, he will continue with pain management and we will plan to observe closely and insert NG if vomiting or significantly worsening pain occur. Qualifiers: Qualified Codes: K56.699 - Other intestinal obstruction unspecified as to partial versus complete obstruction (3) B-cell lymphoma Status: Acute Assessment & Plan: He and report they understand there is little benefit at this point from treatment and they think it is likely time to consider comfort care goals, discussed that seems reasonable based on his presentation and the history of all the treatment he has had. Dr. Cross consulted and they would like to make further determination after discussion with him. Qualifiers: (4) Generalized weakness Status: Acute (5) Ileus Status: Acute (6) Chronic disease anemia Status: Chronic PARIS MONTANO MD August 28, 2020 16:56
[2020-08-28 19:37] VITALS: BP 114/67
[2020-08-28] MEDS: meTOproloL SUCCINATE 50 MG (TOPROL XL) TAB PO SCH (20:49)
--- NOTE | 2020-08-28 21:51 | CONSULTATION REPORT ---
DATE OF SERVICE: 08/28/2020 The patient is admitted to room 419. REQUESTING PHYSICIAN: Angelina Montano MD IMPRESSION: 1. A 70-year-old male admitted with increasing weakness, nausea and vomiting as well as abdominal pain. 2. History of diffuse large B-cell non-Hodgkin's lymphoma that is resistant to primary as well as secondary treatment and currently on palliative treatment. 3. Probable obstruction of the colon at the splenic flexure because of non-Hodgkin's lymphoma causing the nausea and vomiting. RECOMMENDATIONS: 1. Reviewed his symptoms and the CT scans of the abdomen and pelvis done at the time of admission with the patient and his family and answered their questions. 2. Because of progressive non-Hodgkin's lymphoma, I would not recommend any further chemo/immunotherapy and would recommend best supportive care. 3. The patient and his family were agreeable with this. 4. Arrange an informational visit with hospice for tomorrow morning with the patient and his family. 5. enrollment services dean consult regarding other help that can be arranged at home. 6. Advised him to try sips of water to see if this would induce vomiting. If the patient does not have complete obstruction, this may help prevent dehydration. If not, we will discuss the option of IV fluids intermittently with hospice. 7. His overall prognosis is poor. BRIEF HISTORY: The patient is a 70-year-old male with diffuse large B-cell non-Hodgkin's lymphoma that was diagnosed in early 2019. He underwent initial chemotherapy with CHOP plus Rituxan regimen with response, but after six cycles, he had evidence of progression. He was referred to [facility] and was diagnosed with SUPERVISOR PILE DRIVING involvement as well as rapidly progressing disease involving the spleen as well as other abdominal structures. He underwent chemotherapy with high dose methotrexate and cytarabine regimen for 3 cycles followed by CAR-T cell therapy on 03/13/2020. He had a response to the treatment, but not a complete response. He was noted to have progressive disease in early 2020 and was recommended palliative treatment with rituximab and Revlimid. He has completed two months of treatment with this until progressive symptoms. CT scans done at the time of admission and from the emergency room showed evidence of probable progression and obstruction of bile. PAST MEDICAL HISTORY: Significant for diffuse large B-cell non-Hodgkin's lymphoma in early 2019 as mentioned above. History of hypercholesterolemia for a long time, but was unable to tolerate statins. No other medical problems. PAST SURGICAL HISTORY: Include wisdom tooth extraction, inguinal hernia repair in 2018 and a basal cell carcinoma removed from the nose. SOCIAL HISTORY: The patient is and lives in [place], [place]. He has five children, four sons and a daughter. His daughter lives in [place] and a son in [place], [place]. Other sons live in [place], [place]; [place], [place] and [place], [place]. 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 He does have some exposure to farming chemicals over the years. No history of tobacco, alcohol or recreational drug use. FAMILY HISTORY: Significant for his mother who was diagnosed with lymphoma in her early 80s. Father had coronary artery disease and [place] and a brother had coronary artery disease and [place]. A cousin on the paternal side of family had lymphoma. Both grandparents had diabetes mellitus type 1. Rest of the family history is unremarkable. PHYSICAL EXAMINATION: GENERAL: Today showed an elderly male, thin and weak appearing, in mild distress due to abdominal discomfort. VITAL SIGNS: Temperature was 36.8 degrees centigrade, pulse rate of 92, respirations 18, blood pressure 123/65 with oxygen saturation of 98% on room air. HEENT: Normocephalic with male pattern baldness, extraocular muscles intact, conjunctivae pale. Oral mucosa dry. NECK: Supple, with no JVD. No cervical, supraclavicular or axillary lymphadenopathy palpable. CHEST: With implanted port. LUNGS: Fairly clear to auscultation without wheezes or rales. CARDIOVASCULAR: Regular in rate and rhythm. No murmurs or gallops heard. ABDOMEN: Soft with fullness in the left upper quadrant and tenderness on palpation. Bowel sounds were somewhat diminished. Deep palpation was not done because of abdominal discomfort. EXTREMITIES: Showed 2+ edema in both lower extremities. NEUROLOGIC: Showed motor strength of 4/5 bilaterally. No focal motor deficits were noted. LABORATORY DATA: CBC done today showed WBC 2.2, hemoglobin 6.9, platelet count 180,000 with neutrophil count 1.1 and lymphocyte count 0.2. CMP done yesterday showed relatively normal electrolytes. BUN was 19 and creatinine 0.76 with GFR more than 60 mL per minute. Liver function studies were within normal limits. Albumin was below normal at 2.9. CT scan of the abdomen and pelvis done at the emergency room on 08/27/2020 showed a large heterogenous mass lesion in the left upper quadrant, which may represent an abscess or necrotic mass, but is indistinguishable from the fundus of the stomach, the anterior spleen and splenic flexure of the colon on the noncontrast CT. This could result in obstruction or erosion of the colon. Distention throughout the small bowel and proximal colon may be due to ileus or obstruction. Numerous additional masses throughout the abdomen and the lower chest with pleural thickening and pulmonary nodules consistent with metastatic disease. Thank you for allowing me to participate in this patient's care. I will follow the patient with you and make appropriate recommendations. Job ID: [id number] DocumentID: [id number] Dictated Date: 08/28/2020 17:52:56 Broommaking Supervisor Date: 08/28/2020 21:50:34 Dictated By: TINO ESCAMILLA MD
--- NOTE | 2020-08-28 23:59 | CONSULTATION REPORT ---
DATE OF SERVICE: ATTENDING PRIMARY CARE PHYSICIAN: Dr. Mark Baldwin. HISTORY OF PRESENT ILLNESS: The patient is a 70-year-old male, who has a history of metastatic non-Hodgkin's lymphoma, who presented to the ER due to severe abdominal pain and vomiting. He was diagnosed with lymphoma little over a year ago and undergone R-CHOP and CAR-T treatments and was most recently found to have lesions in the brain that prevented him from being another possible trial. He does see an oncologist at and 3 options were given with the first being aggressive chemo where he did not feel was an option due to the expected severity of illness associated with treatment and the second was taken back to [place] and used mild chemotherapy to see if it would help at all and third option was to pursue comfort measures. They decided to continue with chemotherapy here in [place] with Dr. Cross. The patient reports that he has not been feeling well at all for a couple of days and then started to have severe pain with oral intake and then, he began vomiting brown to villanueva-colored foul smelling vomitus. He reports that he then presented to the emergency room [facility] due to the worsening pain as well as nausea and vomiting. He reports he did have a bowel movement earlier yesterday morning. He also states that he has had ongoing issues with anemia and has been receiving blood transfusions. He did undergo workup while in the Emergency Department and was found to have a large heterogeneous mass lesion in the left upper quadrant of the abdomen. This may represent an abscess or necrotic mass, but is indistinguishable from the fundus of the stomach. The anterior spleen and the splenic flexure of the colon. It was thought that this could be the results of obstruction or erosion of the colon. There was also a distention throughout the small bowel and proximal colon as well as additional masses throughout the abdomen and in the lower chest with pleural thickening and pulmonary nodules that was consistent with metastatic disease. Upon further questioning, he does report that he does have some abdominal discomfort currently and reports that he has not passed any gas or had any bowel movements since being here. He also denies any nausea or vomiting currently at this time. PAST MEDICAL HISTORY: B-cell non-Hodgkin's lymphoma, hypercholesterolemia, palpitations. PAST SURGICAL HISTORY: Skin lesion removed from nose. ALLERGIES: STATINS. MEDICATIONS: Acyclovir 800 mg b.i.d., aspirin 81 mg daily, dapsone 100 mg daily, fluconazole 100 mg daily, hydrocodone 5/325 mg q.6 hours p.r.n., Revlimid 15 mg as directed, Levaquin 750 mg daily, metoprolol 50 mg at night. SOCIAL HISTORY: Negative for smoke. Negative for alcohol. FAMILY HISTORY: Some form of cancer. VITAL SIGNS: Blood pressure is 123/65, pulse 92, respirations 18, pulse ox 98% on room air, temperature is 36.8 degrees Celsius. REVIEW OF SYSTEMS: This is a chronically ill-appearing male in no acute distress. He is not experiencing any shortness of breath or difficulty breathing. No chest pain, palpitations or diaphoresis. He did report episodes of nausea and vomiting as well as abdominal pain. No diarrhea or constipation. No red blood per rectum. No dark tarry stools. No fever or chills. He does report weakness and weight loss. All other review of systems negative. PHYSICAL EXAMINATION: CHEST: Clear. Good breath sounds bilaterally. HEART: Regular, no murmurs. EXTREMITIES: There is some bilateral approximately 1+ pedal edema. Negative Homans sign. HEENT: No scleral icterus. NECK: No cervical lymphadenopathy. ABDOMEN: Soft, distended and it is tender to moderate palpation. SKIN: Warm, dry and pink. NEUROLOGIC: Awake, alert and oriented x3. ASSESSMENT AND PLAN: A 70-year-old male with metastatic B-cell lymphoma with multiple abdominal masses, chronic anemia, weakness, who has developed a bowel obstruction. At this time, due to the patient's current health status and recent decline as well as his metastatic disease. He does not appear to be a surgical candidate. It was explained to the patient and family about proceeding with conservative management; however, they have also discussed about proceeding with palliative care and they will further discuss this. At this time, we will proceed with nausea and pain medications as needed as well as bowel rest. If he should regain bowel function, we can start advancing his diet. We will continue to follow the patient at this time. Job ID: [id number] DocumentID: [id number] Dictated Date: 08/28/2020 19:12:38 Eeg Tech Date: 08/28/2020 23:58:47 Dictated By: ROSSY HAWKINS
[2020-08-29] VITALS (7 sets, daily range): BP systolic 113–129; BP diastolic 57–66
[2020-08-29] MEDS: NS IV 1000 ML 1,000 ML IV SCH ×3 (03:36→20:25)
[2020-08-29 06:03] LABS: HEMATOCRIT 24 % (40-54); MEAN CORPUSCULAR HEMOGLOBIN 27 pg (25-34); MEAN CORPUSCULAR HGB CONC 29 g/dL (32-36); MEAN CORPUSCULAR VOLUME 94 fL (80-99); MEAN PLATELET VOLUME 11.7 fL (9.0-12.2); PLATELET COUNT 180 10^3/uL (130-400); WHITE BLOOD COUNT 1.6 10^3/uL (4.3-11.0)
[2020-08-29 06:25] LABS: CHLORIDE 103 MMOL/L (98-107); POTASSIUM 3.8 MMOL/L (3.6-5.0); SODIUM 140 MMOL/L (135-145)
[2020-08-29 06:26] LABS: CALCIUM 8.1 MG/DL (8.5-10.1); GLUCOSE 75 MG/DL (70-105)
[2020-08-29 06:28] LABS: CARBON DIOXIDE 21 MMOL/L (21-32)
[2020-08-29 06:30] LABS: GFR ESTIMATED > 60
[2020-08-29 06:31] LABS: BUN/CREATININE RATIO 27
[2020-08-29 06:34] LABS: HEMOGLOBIN 6.8 g/dL (13.3-17.7)
[2020-08-29] MEDS: SENNA W/DOCUSATE (SENOKOT S) TABLET PO SCH ×2 (11:37→20:25)
--- NOTE | 2020-08-29 15:41 | Progress Note ---
Subjective Date Seen by a Provider: August 29, 2020 Time Seen by a Provider: 15:00 Subjective/Events-last exam doing ok. no nausea/vomiting. 2 smalled formed stools this am. no flatus. abd soft but distended. Objective Exam Vital Signs Date Time Temp Pulse Resp B/P (MAP) Pulse Ox O2 Delivery O2 Flow Rate FiO2 08/29/20 12:00 36.1 96 18 118/61 (80) 96 Room Air 08/29/20 09:00 Room Air 08/29/20 08:32 91 Room Air 08/29/20 08:00 36.1 95 18 118/61 (80) 95 Room Air 08/29/20 04:00 36.8 101 16 128/66 (86) 94 Room Air 08/29/20 00:19 37.0 98 16 113/57 (75) 94 Room Air 08/28/20 20:49 Room Air 08/28/20 19:37 36.3 99 20 114/67 (83) 94 Room Air 08/28/20 15:40 36.8 92 18 123/65 (84) 98 Room Air I & O 08/29/20 07:00 Intake Total 0 ml Output Total 500 ml Balance -500 ml Capillary Refill : Less Than 3 Seconds General Appearance: No Apparent Distress HEENT: PERRL/EOMI Neck: Full Range of Motion Respiratory: Chest Non Tender Cardiovascular: Regular Rate, Rhythm Gastrointestinal: soft, distended Extremity: Normal Capillary Refill Neurologic/Psychiatric: Alert, Oriented x3 Skin: Normal Color Lymphatic: No Adenopathy Results Lab Laboratory Tests 08/29/20 05:50: White Blood Count 1.6L, Red Blood Count 2.54L, Hemoglobin 6.8*L, Hematocrit 24L, Mean Corpuscular Volume 94, Mean Corpuscular Hemoglobin 27, Mean Corpuscular Hemoglobin Concent 29L, Red Cell Distribution Width 22.4H, Platelet Count 180, Mean Platelet Volume 11.7, Sodium Level 140, Potassium Level 3.8, Chloride Level 103, Carbon Dioxide Level 21, Anion Gap 16H, Blood Urea Nitrogen 19H, Creatinine 0.70, Estimat Glomerular Filtration Rate > 60, BUN/Creatinine Ratio 27, Glucose Level 75, Calcium Level 8.1L Assessment/Plan Assessment/Plan Assess & Plan/Chief Complaint end stage NHL with bowel obstruction. anti-nausea meds. start fentanyl patch and tritrate. add PO pain med with sip of water. MICAELA GAXIOLA MD August 29, 2020 15:41
[2020-08-29] MEDS ORDERED: fentaNYL PATCH 25 MCG (DURAGESIC) TD SCH (16:00)
--- NOTE | 2020-08-29 16:33 | Progress Note ---
Subjective Subjective/Events-last exam Afebrile, feeling a little better today. Had a bowel movement yesterday, felt like he was going to vomit once but did not. Objective Exam Last Set of Vital Signs Vital Signs Date Time Temp Pulse Resp B/P (MAP) Pulse Ox O2 Delivery O2 Flow Rate FiO2 08/29/20 16:00 36.0 98 18 124/60 (81) 95 Room Air 08/27/20 19:45 21 Capillary Refill : Less Than 3 Seconds I&O Intake and Output 08/29/20 00:00 Intake Total 0 ml Output Total 550 ml Balance -550 ml Intake Oral 0 ml Output Urine Total 550 ml # Voids 3 # Bowel Movements 1 General: Alert, No Acute Distress Psych/Mental Status: Mood NL Results/Procedures Lab Laboratory Tests 08/29/20 05:50: White Blood Count 1.6L, Red Blood Count 2.54L, Hemoglobin 6.8*L, Hematocrit 24L, Mean Corpuscular Volume 94, Mean Corpuscular Hemoglobin 27, Mean Corpuscular Hemoglobin Concent 29L, Red Cell Distribution Width 22.4H, Platelet Count 180, M jami Platelet Volume 11.7, Sodium Level 140, Potassium Level 3.8, Chloride Level 103, Carbon Dioxide Level 21, Anion Gap 16H, Blood Urea Nitrogen 19H, Creatinine 0.70, Estimat Glomerular Filtration Rate > 60, BUN/Creatinine Ratio 27, Glucose Level 75, Calcium Level 8.1L Radiology CT abd/pelvis 08/27/20 IMPRESSION: 1. Large heterogeneous mass lesion in the left upper quadrant of the abdomen. This may represent an abscess and/or necrotic mass, but is indistinguishable from the fundus of the stomach, the anterior spleen and the splenic flexure of the colon on this noncontrast CT. This could result in obstruction or erosion of the colon. 2. Distention throughout the small bowel and the proximal colon, may be due to ileus or obstruction. 3. Numerous additional masses throughout the abdomen in the lower chest with pleural thickening and pulmonary nodules, consistent with metastatic disease. 4. Anemia. Assessment/Plan Assessment/Plan (1) Abdominal mass Status: Chronic Assessment & Plan: Multiple abdominal masses, unclear if significantly changed from prior findings from his lymphoma, but at this time there is concern for compressive effect with possible obstruction. Surgery consulted, but suspect surgical intervention will not be recommended given the likely recurrence due to lymphoma failing multiple treatments. IV pain control, Surgery and Oncology consulted. 08/29 has not had vomiting, continuing to treat pain symptom, he still would prefer to wait on NG for now unless it becomes absolutely necessary. Qualifiers: Qualified Codes: R19.00 - Intra-abdominal and pelvic swelling, mass and lump, unspecified site (2) Bowel obstruction Status: Acute Assessment & Plan: Unclear if true complete obstruction, no further vomiting since admission, but pain is persistent. Discussed the use of NG tube with patient and and that it may provide some symptomatic relief, although given the source of the problem is cancerous, it will not provide a [employer] solution. After discussion, he will continue with pain management and we will plan to observe closely and insert NG if vomiting or significantly worsening pain occur. 08/29 will try suppository to see if emptying lower intestines will help with pain. Qualifiers: Qualified Codes: K56.699 - Other intestinal obstruction unspecified as to partial versus complete obstruction (3) B-cell lymphoma Status: Acute Assessment & Plan: He and report they understand there is little benefit at this point from treatment and they think it is likely time to consider comfort care goals, discussed that seems reasonable based on his presentation and the history of all the treatment he has had. Dr. Cross consulted and they would like to make further determination after discussion with him. 08/29 planning to meet with hospice today Qualifiers: (4) Generalized weakness Status: Acute (5) Ileus Status: Acute (6) Chronic disease anemia Status: Chronic PARIS HAN MD August 29, 2020 16:33
[2020-08-29] MEDS ORDERED: BISACODYL 10 MG SUPP (DULCOLAX) PR PRN (16:45)
--- NOTE | 2020-08-29 18:19 | Progress Note ---
Standard Progress Note Progress Notes/Assess & Plan Date Seen by a Provider: August 29, 2020 Time Seen by a Provider: 18:14 Progress/Assessment & Plan 70-year-old male with recurrent/persistent diffuse large B cell non-Hodgkin's lymphoma who failed initial therapy with CHOPR regimen and was found to have LOOM [employer]ANER involvement. He completed 3 cycles of high-dose methotrexate and raghu-C regimen x3 followed by car T-cell therapy at [facility]. Follow-up scans showed evidence of progressive disease and he was started on palliative chemotherapy with rituximab and lenalidomide x2 months. Patient admitted to the hospital with intractable nausea vomiting and abdominal pain. CT scans at the emergency room showed progressive mass in the left upper quadrant with possible obstruction. Patient had a small bowel movement last night but still does not have any flatus. He is taking sips of water and denied any vomiting over the past 24 hours. Patient and his family met with [facility] earlier today and is planning to go home with hospice soon. I advised him to take sips of Ensure clear along with water. If he is unable to tolerate water by mouth, he may need occasional IV hydration for comfort. Answered family's questions and they were comfortable with hospice care. Will follow patient. TINO ESCAMILLA August 29, 2020 18:19
[2020-08-29] MEDS: meTOproloL SUCCINATE 50 MG (TOPROL XL) TAB PO SCH (20:24)
[2020-08-30] MEDS: NS IV 1000 ML 1,000 ML IV SCH ×2 (03:04→10:44)
[2020-08-30] MEDS ORDERED: FENT1PAT8 TD (07:52)
[2020-08-30 08:00] VITALS: BP 153/78
[2020-08-30] MEDS: SENNA W/DOCUSATE (SENOKOT S) TABLET PO SCH (09:38)
--- NOTE | 2020-08-30 15:01 | Discharge Summary ---
Discharge Summary Hospital Course Problems/Diagnosis: (1) Abdominal mass Status: Chronic Assessment & Plan: Multiple abdominal masses, unclear if significantly changed from prior findings from his lymphoma, but at this time there is concern for compressive effect with possible obstruction. Surgery consulted, but suspect surgical intervention will not be recommended given the likely recurrence due to lymphoma failing multiple treatments. IV pain control, Surgery and Oncology consulted. 08/29 has not had vomiting, continuing to treat pain symptom, he still would prefer to wait on NG for now unless it becomes absolutely necessary. 08/30 discharged home with hospice, if he has onset of vomiting, hospice can place NG if needed for comfort. Fentanyl patch helping with pain, continued on d/c. Qualifiers: Qualified Codes: R19.00 - Intra-abdominal and pelvic swelling, mass and lump, unspecified site (2) Bowel obstruction Status: Acute Assessment & Plan: Unclear if true complete obstruction, no further vomiting since admission, but pain is persistent. Discussed the use of NG tube with patient and and that it may provide some symptomatic relief, although given the source of the problem is cancerous, it will not provide a jail solution. After discussion, he will continue with pain management and we will plan to observe closely and insert NG if vomiting or significantly worsening pain occur. 08/29 will try suppository to see if emptying lower intestines will help with pain. Qualifiers: Qualified Codes: K56.699 - Other intestinal obstruction unspecified as to partial versus complete obstruction (3) B-cell lymphoma Status: Acute Assessment & Plan: He and report they understand there is little benefit at this point from treatment and they think it is likely time to consider comfort care goals, discussed that seems reasonable based on his presentation and the history of all the treatment he has had. Dr. Cross consulted and they would like to make further determination after discussion with him. 08/29 planning to meet with hospice today 08/30 discharged with [facility] for home Qualifiers: (4) Generalized weakness Status: Acute (5) Ileus Status: Acute (6) Chronic disease anemia Status: Chronic Hospital Course Date of Admission: August 27, 2020 at 17:45 Admission Diagnosis : Family Physician/Provider: Juancho Perez MD Date of Discharge: 08/30/20 Discharge Diagnosis: See problem list Hospital Course: See problem list Labs and Pending Lab Test: Home Meds Active Fentanyl Patch 25 MCG (Fentanyl) 1 Each Patch.td72 25 Mcg TD Q72H 15 Days Reported Hydrocodone-Acetamin 5-325 mg (Hydrocodone/Acetaminophen) 1 Each Tablet 1 Tab PO Q6H PRN Assessment/Pt DC Instructions Discharge with hospice service Discharge Diet: No Restrictions Activity as Tolerated: Yes Discharge Physical Examination Allergies: Coded Allergies: Dwzvznb-Wkn-Mvy Reductase Inhibitor (Verified Allergy, Severe, CAUSES PROBLEMS WITH CONNECTIVE TISSUE, 06/18/19) General Appearance: No Apparent Distress, Thin Respiratory: Lungs Clear Cardiovascular: Regular Rate, Rhythm Skin: Warm/Dry Neurologic/Psychiatric: Alert, Normal Mood/Affect Copy Copies To 1: JUANCHO PEREZ MD, BETHANY N MD August 30, 2020 15:01
[2020-08-30 15:15] VITALS: BP 153/78
[2020-09-01] MEDS ORDERED: FENTANYL PATCH REMOVAL TP SCH (15:59)
== END 2020-08-30 15:15 | disposition hospice, home (50) ==
LOC: EDUNIT# 12:58 → ER 13:02 → 4TH 17:45 → UNDOADMOB 17:45 → 4TH 18:35 → UNDODISOB 08-30 15:15
PROVIDERS: ADMIT Internal Medicine; ATTEND Family Medicine
DX: R19.00 Intra-abdominal and pelvic swelling, mass and lump, unspecified site (principal); C83.30 Diffuse large B-cell lymphoma, unspecified site; K56.7 Ileus, unspecified; E78.00 Pure hypercholesterolemia, unspecified; D63.8 Anemia in other chronic diseases classified elsewhere; E78.5 Hyperlipidemia, unspecified; Z79.82 Long term (current) use of aspirin; Z79.891 Long term (current) use of opiate analgesic; Z79.899 Other long term (current) drug therapy; Z83.3 Family history of diabetes mellitus; Z80.7 Family history of other malignant neoplasms of lymphoid, hematopoietic and related tissues
CPT/HCPCS: 74022; 74176; 80048 ×2; 80053; 85007; 85025 ×2; 85027 ×3; 86850; 86900; 86901; 94760; 96361; 96374; 96375; 99284; G0378; 36415